=== PATIENT | female | born 1955 | race African-American/Black ===

== ENCOUNTER 2019-12-28 07:12 | Outpatient (CLI) | payer MEDICARE, OTHER, SELFPAY ==
[2019-12-28 07:48] LABS: Basophils Percent Auto 0.4 % (0.2-1.2); Eosinophils Absolute Auto 0.2 K/mm3 (0-0.3); Eosinophils Percent Auto 4.3 % (0-4.4); Hematocrit 37.6 % (37.0-47.0); Lymphocytes Absolute Auto 1.76 K/mm3 (0.9-3.2); Lymphocytes Percent Auto 35.8 % (18.3-44.2); Mean Corpuscular HGB Conc 31.9 g/dl (32-36); Mean Corpuscular Hemoglobin 30.7 pg (26-34); Mean Corpuscular Volume 96.2 fl (80-100); Mean Platelet Volume 10.7 fl (7.4-10.4); Monocytes Absolute Auto 0.5 K/mm3 (0.1-0.6); Monocytes Percent Auto 10.4 % (2.6-8.5); Neutrophils Absolute Auto 2.4 K/mm3 (1.3-6.7); Neutrophils Percent Auto 49.1 % (45.5-73.1); Platelet Count Result 192 k/mm3 (150-375); Red Blood Count 3.91 M/mm3 (4.2-5.4); Red Cell Distribution Width 13.5 % (11.5-14.5); White Blood Count 4.9 K/mm3 (4.5-10.0)
[2019-12-28 08:02] LABS: Alanine Aminotransferase 16 U/L (4-35); Albumin Level 4.3 g/dL (3.5-5.1); Alkaline Phosphatase 50 U/L (38-126); Aspartate Amino Transferase 24 U/L (14-36); Bilirubin,Total 0.4 mg/dL (0.2-1.3); Blood Urea Nitrogen 17 mg/dL (7-17); Calcium 9.5 mg/dL (8.4-10.2); Carbon Dioxide 35 mmol/L (22-30); Chloride 103 mmol/L (98-107); Cholesterol 140 mg/dL (0-200); Estimated Glomerular Filt Rate > 60; Glucose 92 mg/dL (65-105); HDL Direct 63 mg/dL; Potassium 3.9 mmol/L (3.4-5.0); Sodium 139 mmol/L (137-145); Triglycerides 62 mg/dL (<150)
[2019-12-28 08:13] LABS: LDL Cholesterol Direct 44 mg/dL
== END 2019-12-28 07:13 | disposition home or self-care (01) ==
PROVIDERS: PCP Internal Medicine; Visit Provider Internal Medicine
DX: I10 Essential (primary) hypertension (principal); E78.5 Hyperlipidemia, unspecified
CPT/HCPCS: 36415; 80053; 80061; 84439; 84443; 85025

== ENCOUNTER 2019-12-29 07:38 | Outpatient (CLI) | payer MEDICARE, OTHER, SELFPAY ==
--- NOTE | ~2019-12-29 | DEXA_ITS ---
Bone Density Report Name: Emma Leggett Age: 64 Sex: Female Ethnicity: Black Date of : 1955 Indication: osteopenia; monitoring treatment; asthma or emphysema; hysterectomy; post menopausal Referring Provider: ShruthiKehinde Study: Bone densitometry was performed. Exam Date: December 29, 2019 Accession number: [id number] Bone Density: Region BMD T-score Z-score Classification AP Spine (L1, L2, L3) 0.878 -1.3 -0.2 Osteopenia Femoral Neck (Left) 0.818 -0.3 0.4 Normal Total Hip (Left) 0.819 -1.0 -0.4 Normal Total Hip Bilateral Avg 0.841 -0.8 -0.3 Normal Femoral Neck (Right) 0.862 0.1 0.7 Normal Total Hip (Right) 0.863 -0.6 -0.1 Normal World Health Organization criteria for BMD impression classify patients as: Normal (T-score at or above -1.0), Osteopenia (T-score between -1.0 and -2.5), or Osteoporosis (T-score at or below -2.5). 10-year Fracture Risk: FRAX not reported because: Treated for osteoporosis Previous Exams: Region Exam Age BMD T-score BMD Change BMD Change Date g/cm2 vs Baseline vs Previous AP Spine(L1, L2, L3) 12/29/2019 64 0.878 -1.3 -0.099(-10.2%) 0.053(6.4%)# 02/16/2014 59 0.825 -1.8 -0.152(-15.6%) -0.033(-3.9%)# 12/12/2010 55 0.858 -1.5 -0.119(-12.2%) -0.028(-3.2%)* 11/01/2008 53 0.886 -1.2 -0.090(-9.3%)* -0.090(-9.3%)* 06/10/2006 51 0.977 -0.4 Total Hip(Left) 12/29/2019 64 0.819 -1.0 -0.071(-7.9%)# 0.020(2.4%)# 02/16/2014 59 0.800 -1.2 -0.090(-10.1%) -0.007(-0.9%)# 12/12/2010 55 0.807 -1.1 -0.083(-9.4%)* -0.051(-6.0%)* 11/01/2008 53 0.858 -0.7 -0.032(-3.6%)* -0.032(-3.6%)* 06/10/2006 51 0.890 -0.4 Total Hip(Right) 12/29/2019 64 0.863 -0.6 -0.041(-4.5%)# 0.050(6.1%)# 02/16/2014 59 0.813 -1.1 -0.091(-10.0%) -0.004(-0.5%)# 12/12/2010 55 0.817 -1.0 -0.087(-9.6%)* -0.027(-3.2%)* 11/01/2008 53 0.844 -0.8 -0.060(-6.6%)* -0.060(-6.6%)* 06/10/2006 51 0.904 -0.3 *Denotes significance at 95% confidence level, LSC for AP Spine = 0.022 g/cm2, LSC for Total Hip = 0.027 g/cm2 Clinical Information Provided by Patient: Is being treated for osteoporosis Has used the following medications: Boniva (i.e. ibandronate), Vitamin D, Calcium Has the following medical conditions: Asthma or Emphysema, Hysterectomy Patient maximum height was 64 Menopause Age: 49 Does not regularly consume dairy products Onset of menses at age 14 Number of children 2
--- NOTE | ~2019-12-29 | MM_ITS ---
EXAMINATION: MM screening [facility] BI w [facility] HISTORY: Screening mammogram TECHNIQUE: Craniocaudal and mediolateral oblique 3-D tomosynthesis images were obtained and synthetic 2-D images were generated. CAD analysis was submitted and interpreted. COMPARISON: Comparison to multiple prior studies sequentially, with oldest reviewed study dated 06/05. BREAST PARENCHYMAL COMPOSITION: There are scattered areas of fibroglandular density. FINDINGS: There is no evidence of suspicious mass, calcification, or architectural distortion to sugg est malignancy in either breast. There has been no suspicious interval change. IMPRESSION: 1. No mammographic evidence of malignancy. 2. Recommend routine screening mammography in one year. BI-RADS Category 1: Negative Reviewed, dictated and finalized at location A.
== END 2019-12-29 07:39 | disposition home or self-care (01) ==
PROVIDERS: PCP Internal Medicine; Visit Provider Internal Medicine
DX: Z12.31 Encounter for screening mammogram for malignant neoplasm of breast (principal); M81.0 Age-related osteoporosis without current pathological fracture; M85.88 Other specified disorders of bone density and structure, other site
CPT/HCPCS: 77063; 77067; 77080

== ENCOUNTER 2020-01-25 00:26 | Outpatient (CLI) | payer MEDICARE, OTHER, SELFPAY ==
[2020-01-25 18:55] LABS: SARS-CoV-2 RNA PCR Negative
== END 2020-01-25 00:27 | disposition home or self-care (01) ==
LOC: ANHCOVIDDT 00:26
PROVIDERS: PCP Internal Medicine; Visit Provider Internal Medicine Gastroenterology
DX: Z01.818 Encounter for other preprocedural examination (principal); Z11.59 Encounter for screening for other viral diseases; Z12.11 Encounter for screening for malignant neoplasm of colon
CPT/HCPCS: 87635; C9803; U0003

== ENCOUNTER 2020-01-27 00:54 | Day surgery (SDC) | payer MEDICARE, OTHER, SELFPAY ==
[2020-01-20 13:26] VITALS: BMI 33.2
--- NOTE | 2020-01-27 08:24 | WPDANESEPPF ---
Anes - Initial Pre Proc Eval Procedure: Operation Date: 01/27/20 09:30 Proposed Procedures p Screening Colonoscopy - Elvis Rivas MD Date/Time: 01/27/20 08:24 Surgeon: Elvis Rivas MD Pre Op Diagnosis: Fam Hx Colon Ca Patient Data Age: 64 Gender: F Height: 1.6 m Weight: 85 kg Allergies Allergy/AdvReac Type Severity Reaction Status Date / Time No Known Allergies Allergy Verified 01/27/20 08:52 Home Medications Medication Instructions Recorded Confirmed Type albuterol sulfate 90 mcg/actuation 1 inhalation INHALATION Q4H 09/13/19 01/20/20 History aerosol inhaler aspirin 81 mg tablet,delayed 81 mg PO DAILY 09/13/19 01/20/20 History release atorvastatin 20 mg tablet 20 mg PO DAILY 09/13/19 01/20/20 History cholecalciferol (vitamin D3) 25 25 mcg PO DAILY 09/13/19 01/20/20 History mcg (1,000 unit) capsule hydrochlorothiazide 12.5 mg capsule 12.5 mg PO DAILY 09/13/19 01/20/20 History ibandronate 150 mg tablet 150 mg PO MONTHLY 09/13/19 01/20/20 History metoprolol succinate 25 mg capsule 25 mg PO DAILY 09/13/19 01/20/20 History sprinkle, ext. release 24 hr paroxetine HCl 10 mg tablet 10 mg PO DAILY 09/13/19 01/20/20 History salmeterol 50 mcg/dose blister 1 inhalation INHALATION Q12H 09/13/19 01/20/20 History powder for inhalation solifenacin 10 mg tablet 10 mg PO DAILY 09/13/19 01/20/20 History valsartan 160 mg tablet 160 mg PO DAILY 09/13/19 01/20/20 History Patient hx anesthesia problems: none Family hx anesthesia problems: none PMFSH Past Medical History Medical History Asthma Back pain Dyslipidemia History of vaginal delivery x2 Hypertension Obesity Surgical History Surgical History History of total hysterectomy History of tubal ligation Family History Family History Father Hypertension Mother Hypertension Cerebrovascular accident Sibling Carcinoma of colon Social History Social History Smoking status: Never smoker Alcohol intake: never Anes - Eval Final PreProcedure Day of Procedure 01/27/20 08:24 Patient weight: obese Heart: regular rate and rhythm Lungs: clear to auscultation and normal air movement Airway: Mallampati scale class II Neurological: alert and oriented Last oral intake: >/= 8 hours ASA classification: II Emergent: no Anesthetic plan: proceed Anesthesia type and monitoring: general GIVS Informed Consent: The patient's anesthetic plan and its attendant risks and benefits were discussed with the patient/family/POA. Questions were solicited and answers provided to the satisfaction of the patient/family/POA.
[2020-01-27 08:53] VITALS: BP 153/80; PULSE 74; RESP 16; TEMP 36.2; O2SAT 100; BMI 33.3
--- NOTE | 2020-01-27 09:02 | PM.HPGS ---
History of Present Illness History of Present Illness Consent: Risks, benefits, and alternatives have been discussed and questions answered. Patient agrees to proceed with procedure. Chief complaint: Fam Hx Colon Ca Narrative: Emma Leggett is a 64 year old AA female referred for screening colonoscopy secondary to family history of colon cancer in 2 sisters. There is no other types of malignancy. Patient states that no genetic testing has been done. Patient is asymptomatic. Her last colonoscopy was 3 years ago however the bowel prep was not ideal and she return in 3 years instead of 5. Patient had a 2 day bowel prep. [facility] Past Medical History Medical History (Updated 01/27/20 @ 09:03 by Elvis Rivas MD) Asthma Back pain Dyslipidemia History of vaginal delivery x2 Hypertension Obesity Surgical History Surgical History History of total hysterectomy History of tubal ligation Family History Family History Father Hypertension Mother Hypertension Cerebrovascular accident Sibling Carcinoma of colon Social History Social History Smoking status: Never smoker Alcohol intake: never Meds Home Medications and Allergies Home Medications Medication Instructions Recorded Confirmed Type albuterol sulfate 90 mcg/actuation 1 inhalation INHALATION Q4H 09/13/19 01/20/20 History aerosol inhaler aspirin 81 mg tablet,delayed 81 mg PO DAILY 09/13/19 01/20/20 History release atorvastatin 20 mg tablet 20 mg PO DAILY 09/13/19 01/20/20 History cholecalciferol (vitamin D3) 25 25 mcg PO DAILY 09/13/19 01/20/20 History mcg (1,000 unit) capsule hydrochlorothiazide 12.5 mg capsule 12.5 mg PO DAILY 09/13/19 01/20/20 History ibandronate 150 mg tablet 150 mg PO MONTHLY 09/13/19 01/20/20 History metoprolol succinate 25 mg capsule 25 mg PO DAILY 09/13/19 01/20/20 History sprinkle, ext. release 24 hr paroxetine HCl 10 mg tablet 10 mg PO DAILY 09/13/19 01/20/20 History salmeterol 50 mcg/dose blister 1 inhalation INHALATION Q12H 09/13/19 01/20/20 History powder for inhalation solifenacin 10 mg tablet 10 mg PO DAILY 09/13/19 01/20/20 History valsartan 160 mg tablet 160 mg PO DAILY 09/13/19 01/20/20 History Allergies Allergy/AdvReac Type Severity Reaction Status Date / Time No Known Allergies Allergy Verified 01/27/20 08:52 Vital Signs Vital Signs - 24 hr 01/27/20 08:53 Temperature 36.2 C L Pulse Rate 74 Respiratory Rate 16 Blood Pressure 153/80 H Pulse Oximetry 100 Exam Const: Orientation/consciousness: patient oriented x3 Resp: Auscultation: clear to auscultation bilaterally Cardio: Rate: regular rate Rhythm: regular rhythm Heart sounds: no murmurs GI: GI Palp: Yes Soft to palpation, No Tenderness to palpation present (GI), Yes No hepatosplenomegaly present and No Palpable mass present Auscultation: normal bowel sounds Neuro: General: patient oriented x3 and no focal motor deficits Extrem: General: no pedal edema Assessment and Plan Additional Plan screening colonoscopy in high risk patient
[2020-01-27] MEDS: LACTATED RINGERS 1,000 ML 150 ML IV CONT (09:09)
[2020-01-27 09:54] VITALS: BP 120/54; PULSE 71; RESP 17; O2SAT 100
[2020-01-27 10:04] VITALS: BP 131/71; PULSE 71; RESP 17; O2SAT 100
[2020-01-27 10:14] VITALS: BP 150/84; PULSE 71; RESP 17; O2SAT 100
== END 2020-01-27 10:24 | disposition home or self-care (01) ==
PROVIDERS: PCP Internal Medicine; Visit Provider Internal Medicine Gastroenterology
PROC: 0DJD8ZZ Inspection of Lower Intestinal Tract, Via Natural or Artificial Opening Endoscopic (ICD-10-PCS; CPT 45378; principal; 2020-01-27 09:30)
DX: Z12.11 Encounter for screening for malignant neoplasm of colon (principal); K64.4 Residual hemorrhoidal skin tags; K62.89 Other specified diseases of anus and rectum; Z80.0 Family history of malignant neoplasm of digestive organs; I10 Essential (primary) hypertension; E78.5 Hyperlipidemia, unspecified; J45.909 Unspecified asthma, uncomplicated; E66.9 Obesity, unspecified; Z68.33 Body mass index [BMI] 33.0-33.9, adult; Z79.899 Other long term (current) drug therapy
CPT/HCPCS: G0105; J2704; J7120

== ENCOUNTER 2023-02-10 13:19 | Emergency (ER) | payer MEDICARE, OTHER, SELFPAY ==
[2023-02-10] VITALS (13 sets, daily range): BP systolic 150–182; BP diastolic 70–95; PULSE 53–72; RESP 12–20; TEMP 36.6; O2SAT 99–100
--- NOTE | ~2023-02-10 | XR_ITS ---
EXAMINATION: XR chest 2V DATE: 02/10/2023 14:27 INDICATION: Midsternal chest pain. Shortness of breath. TECHNIQUE: Frontal and lateral views of the chest were obtained. COMPARISON: Chest 2 views 10/04/2016 FINDINGS: The chest demonstrates clear lungs without pneumonia, pleural effusion, or pneumothorax. Th e heart size is normal. IMPRESSION: 1. No acute cardiopulmonary disease. Reviewed, dictated and finalized at location E.
--- NOTE | 2023-02-10 13:22 | ECG_ITS ---
Measurements Intervals Seltzer Rate: 63 P: 65 NH: 171 QRS: 23 QRSD: 93 T: 45 QT: 385 QTc: 395 Interpretive Statements SINUS RHYTHM BORDERLINE R WAVE PROGRESSION, ANTERIOR LEADS BORDERLINE ECG NO PREVIOUS ECG AVAILABLE FOR COMPARISON Electronically Signed On 02-10-2023 13:33:52 CDT by Antonio High D.O.
[2023-02-10] MEDS: ASPIRIN 81 MG CHEWABLE TABLET 324 MG PO (13:39)
[2023-02-10 14:00] LABS: Basophils Percent Auto 0.8 % (0.2-1.2); Eosinophils Absolute Auto 0.3 K/mm3 (0-0.3); Eosinophils Percent Auto 6.9 % (0-4.4); Hematocrit 40.5 % (37.0-47.0); Hemoglobin 12.9 g/dL (12.0-15.0); Immature Granulocyte Absolute 0.01 K/mm3 (0.00-0.031); Immature Granulocyte Percent A 0.2 % (0-0.5); Lymphocytes Absolute Auto 2.17 K/mm3 (0.9-3.2); Lymphocytes Percent Auto 43.8 % (18.3-44.2); Mean Corpuscular HGB Conc 31.9 g/dl (32-36); Mean Corpuscular Hemoglobin 30.8 pg (26-34); Mean Corpuscular Volume 96.7 fl (80-100); Mean Platelet Volume 10.7 fl (7.4-10.4); Monocytes Absolute Auto 0.5 K/mm3 (0.1-0.6); Monocytes Percent Auto 10.3 % (2.6-8.5); Neutrophils Absolute Auto 1.9 K/mm3 (1.3-6.7); Platelet Count Result 210 k/mm3 (150-375); Red Blood Count 4.19 M/mm3 (4.2-5.4); Red Cell Distribution Width 13.2 % (11.5-14.5)
[2023-02-10 14:08] LABS: Chloride 100 mmol/L (98-107); Potassium 3.7 mmol/L (3.4-5.0); Sodium 138 mmol/L (137-145)
[2023-02-10 14:09] LABS: Alanine Aminotransferase 23 U/L (6-35); Albumin Level 4.6 g/dL (3.5-5.1); Alkaline Phosphatase 52 U/L (38-126); Anion Gap 2 mmol/L (8-16); Aspartate Amino Transferase 29 U/L (14-36); Bilirubin,Total 0.5 mg/dL (0.2-1.3); Blood Urea Nitrogen 18 mg/dL (7-17); Calcium 10.5 mg/dL (8.4-10.2); Carbon Dioxide 36 mmol/L (22-30); Estimated CRCL calculation 67 ml/min; Estimated Glomerular Filt Rate > 60; Glucose 83 mg/dL (65-110); Lipase 95 U/L (23-300)
[2023-02-10 14:13] LABS: INR 0.9; Prothrombin Time 13.1 Seconds (11.1-14.7)
[2023-02-10 14:14] LABS: Partial Thromboplastin Time 29.3 SECONDS (22.3-36.8)
[2023-02-10 14:21] LABS: Troponin I < 0.012 ng/mL (0.000-0.034)
[2023-02-10] MEDS: ACETAMINOPHEN 500 MG TABLET 1000 MG PO (14:30)
--- NOTE | 2023-02-10 14:38 | ED.CHESTPAIN ---
HPI - Chest Pain General Chief Complaint: Chest Pain Stated Complaint: chest discomfort Time Seen by Provider: 02/10/23 13:43 History of Present Illness HPI narrative: This is a 68-year-old female with past history of hypothyroidism and hypertension, who presents emergency department complaining of chest pressure for the past 1 week. The patient states she was at rest when she felt a 2/10 pressure-like sensation in the mid chest, aggravated by bending forward or twisting and alleviated with straightening. She denies any other known aggravating alleviating factors. She denies associated difficulty breathing, nausea or vomiting. She has no other complaints today. Related Data Home Medications Medication Instructions Recorded Confirmed albuterol sulfate 90 mcg/actuation 1 inhalation inhalation Q4H 09/13/19 09/17/21 aerosol inhaler (ProAir HFA) aspirin 81 mg tablet,delayed 81 mg PO DAILY 09/13/19 09/17/21 release (Adult Aspirin Regimen) atorvastatin 20 mg tablet 20 mg PO DAILY 09/13/19 09/17/21 cholecalciferol (vitamin D3) 25 25 mcg PO DAILY 09/13/19 09/17/21 mcg (1,000 unit) capsule hydrochlorothiazide 12.5 mg capsule 12.5 mg PO DAILY 09/13/19 09/17/21 ibandronate 150 mg tablet (Boniva) 150 mg PO MONTHLY 09/13/19 09/17/21 metoprolol succinate 25 mg capsule 25 mg PO DAILY 09/13/19 09/17/21 sprinkle, ext. release 24 hr paroxetine HCl 10 mg tablet 10 mg PO DAILY 09/13/19 09/17/21 salmeterol 50 mcg/dose blister 1 inhalation inhalation Q12H 09/13/19 09/17/21 powder for inhalation (Serevent Diskus) solifenacin 10 mg tablet (Vesicare) 10 mg PO DAILY 09/13/19 09/17/21 valsartan 160 mg tablet 160 mg PO DAILY 09/13/19 09/17/21 levothyroxine 100 mcg capsule 100 mcg PO DAILY 09/17/21 09/17/21 Allergies Allergy/AdvReac Type Severity Reaction Status Date / Time No Known Allergies Allergy Verified 02/10/23 13:47 Review of Systems Review of Systems: CONSTITUTIONAL: Denies fever, chills, or sweats. CARDIOVASCULAR: Chest pressure denies palpitations, or edema. RESPIRATORY: Denies cough or dyspnea. GASTROINTESTINAL: Denies abdominal pain, nausea, vomiting, or diarrhea. GENITOURINARY: Denies dysuria or hematuria. SKIN: Denies rash or itching. MUSCULOSKELETAL: Denies back pain, joint pain, or myalgia. NEUROLOGIC: Denies headache, numbness, dizziness, or weakness. PSYCHIATRIC: Denies anxiety or depression. PMFSH Past Medical History Medical History Asthma Back pain Dyslipidemia History of vaginal delivery x2 Hypertension Obesity Surgical History Surgical History History of carpal tunnel surgery of right wrist History of total hysterectomy History of tubal ligation Family History Family History Father Hypertension Mother Hypertension Cerebrovascular accident Sibling Carcinoma of colon Social History Social History Smoking status: Never smoker Alcohol intake: never Exam Narrative: GENERAL: Well-developed, well-nourished, and in no acute distress. HEAD: Normocephalic, atraumatic. EYES: PERRLA and EOMI. ENT: Nares clear, no rhinorrhea or epistaxis. Mucous membranes moist. Oropharynx without tonsillar hypertrophy exudate or other lesions. NECK: Supple. No adenopathy or masses. No JVD CHEST: Clear to auscultation. No respiratory distress. No wheezes rales or rhonchi HEART: Regular rate and rhythm. No murmur heard. Normal peripheral pulses. Unable to reproduce chest pain with palpation, however the patient was able to reproduce her pain with sitting forward and twisting. ABDOMEN: Soft, nontender, nondistended, normal active bowel sounds. EXTREMITIES: Normal range of motion. No edema. SKIN: Warm, dry, no rash. NEURO: No focal deficits. Alert and oriented x3. PSYCH:
[2023-02-10 17:05] LABS: Troponin I < 0.012 ng/mL (0.000-0.034)
== END 2023-02-10 17:35 | disposition home or self-care (01) ==
PROVIDERS: Emergency Medicine; Emergency Provider Preventive Medicine Aerospace Medicine; PCP Internal Medicine
DX: R07.89 Other chest pain (principal); E03.9 Hypothyroidism, unspecified; I10 Essential (primary) hypertension; E78.5 Hyperlipidemia, unspecified
CPT/HCPCS: 36415; 71046; 80053; 83690; 84484; 85025; 85610; 85730; 93005; 99284; A9270

== ENCOUNTER 2023-05-23 00:50 | Day surgery (SDC) | payer MEDICARE, OTHER, SELFPAY ==
[2023-05-13 14:20] VITALS: BMI 32.0
--- NOTE | 2023-05-22 13:26 | PM.HPGS ---
History of Present Illness History of Present Illness Consent: Risks, benefits, and alternatives have been discussed and questions answered. Patient agrees to proceed with procedure. Chief complaint: GERD Narrative: Emma Leggett is a 68 year old female Referred for investigation of gastroesophageal reflux symptoms. She is not currently on PPI . She does not get heartburn. Her main symptom is a pressure in the chest. It can last for an hour to an it is sometimes worse if she leans forward. Review of Systems Review of Systems: All systems reviewed & are unremarkable except as noted in HPI and below PMFSH Past Medical History Medical History Asthma Back pain Dyslipidemia History of vaginal delivery x2 Hypertension Obesity Surgical History Surgical History History of carpal tunnel surgery of right wrist History of total hysterectomy History of tubal ligation Family History Family History Father Hypertension Mother Hypertension Cerebrovascular accident Sibling Carcinoma of colon Social History Social History Smoking status: Never smoker Alcohol intake: never Substance use type: does not use Living arrangements: with friend(s) Spiritual care concerns: No Meds Home Medications and Allergies Home Medications Medication Instructions Recorded Confirmed Type albuterol sulfate 90 mcg/actuation 1 inhalation inhalation Q4H PRN 09/13/19 05/13/23 History aerosol inhaler (ProAir HFA) Shortness Of Breath aspirin 81 mg tablet,delayed 81 mg PO DAILY 09/13/19 05/13/23 History release (Adult Aspirin Regimen) atorvastatin 20 mg tablet 20 mg PO DAILY 09/13/19 05/13/23 History cholecalciferol (vitamin D3) 25 25 mcg PO DAILY 09/13/19 05/13/23 History mcg (1,000 unit) capsule ibandronate 150 mg tablet (Boniva) 150 mg PO MONTHLY 09/13/19 05/13/23 History paroxetine HCl 10 mg tablet 10 mg PO DAILY 09/13/19 05/13/23 History salmeterol 50 mcg/dose blister 1 inhalation inhalation Q12H 09/13/19 05/13/23 History powder for inhalation (Serevent Diskus) calcium carbonate 600 mg calcium 600 mg PO BID 05/13/23 05/13/23 History (1,500 mg) tablet (Calcium) hydrochlorothiazide 25 mg tablet 25 mg PO DAILY 05/13/23 05/13/23 History levothyroxine 75 mcg tablet 75 mcg PO DAILY 05/13/23 05/13/23 History losartan 50 mg tablet 50 mg PO DAILY 05/13/23 05/13/23 History multivitamin with minerals-folic 1 tablet PO DAILY 05/13/23 05/13/23 History acid 0.4 mg tablet solifenacin 5 mg tablet 5 mg PO DAILY 05/13/23 05/13/23 History Allergies Allergy/AdvReac Type Severity Reaction Status Date / Time No Known Allergies Allergy Verified 05/23/23 09:18 Exam Const: General: alert Orientation/consciousness: patient oriented x3 Resp: Auscultation: clear to auscultation bilaterally Cardio: Rhythm: regular rhythm GI: GI Palp: Yes Soft to palpation and No Tenderness to palpation present (GI) Neuro: General: patient oriented x3 Assessment and Plan Assessment and plan (1) GERD (gastroesophageal reflux disease): Code(s): K21.9 - Gastro-esophageal reflux disease without esophagitis Status: Acute
[2023-05-23 09:19] VITALS: BP 176/82; PULSE 67; RESP 18; TEMP 36.1; O2SAT 100
[2023-05-23] MEDS: LACTATED RINGERS 1,000 ML 150 ML IV CONT (09:28)
--- NOTE | 2023-05-23 09:53 | WPDANESEPPF ---
Anes - Initial Pre Proc Eval Procedure: Operation Date: 05/23/23 10:15 Proposed Procedures p Esophagogastroduodenoscopy EGD - Elliott Pearson MD Date/Time: 05/23/23 09:53 Surgeon: Elliott Pearson MD Pre Op Diagnosis: GERD Patient Data Age: 68 Gender: F Height: 1.6 m Weight: 86.2 kg Last Vital Signs Temp 97 F L 05/23/23 09:19 Pulse 67 05/23/23 09:19 Resp 18 05/23/23 09:19 BP 176/82 H 05/23/23 09:19 Pulse Ox 100 05/23/23 09:19 O2 Del Method Room Air 05/23/23 09:19 Allergies Allergy/AdvReac Type Severity Reaction Status Date / Time No Known Allergies Allergy Verified 05/23/23 09:18 Home Medications Medication Instructions Recorded Confirmed Type albuterol sulfate 90 mcg/actuation 1 inhalation inhalation Q4H PRN 09/13/19 05/13/23 History aerosol inhaler (ProAir HFA) Shortness Of Breath aspirin 81 mg tablet,delayed 81 mg PO DAILY 09/13/19 05/13/23 History release (Adult Aspirin Regimen) atorvastatin 20 mg tablet 20 mg PO DAILY 09/13/19 05/13/23 History cholecalciferol (vitamin D3) 25 25 mcg PO DAILY 09/13/19 05/13/23 History mcg (1,000 unit) capsule ibandronate 150 mg tablet (Boniva) 150 mg PO MONTHLY 09/13/19 05/13/23 History paroxetine HCl 10 mg tablet 10 mg PO DAILY 09/13/19 05/13/23 History salmeterol 50 mcg/dose blister 1 inhalation inhalation Q12H 09/13/19 05/13/23 History powder for inhalation (Serevent Diskus) calcium carbonate 600 mg calcium 600 mg PO BID 05/13/23 05/13/23 History (1,500 mg) tablet (Calcium) hydrochlorothiazide 25 mg tablet 25 mg PO DAILY 05/13/23 05/13/23 History levothyroxine 75 mcg tablet 75 mcg PO DAILY 05/13/23 05/13/23 History losartan 50 mg tablet 50 mg PO DAILY 05/13/23 05/13/23 History multivitamin with minerals-folic 1 tablet PO DAILY 05/13/23 05/13/23 History acid 0.4 mg tablet solifenacin 5 mg tablet 5 mg PO DAILY 05/13/23 05/13/23 History Patient hx anesthesia problems: none Family hx anesthesia problems: none Results Review: All pre-operative results and documents have been reviewed as part of the pre-operative evaluation. [facility] Past Medical History Medical History Asthma Back pain Dyslipidemia History of vaginal delivery x2 Hypertension Obesity Surgical History Surgical History History of carpal tunnel surgery of right wrist History of total hysterectomy History of tubal ligation Family History Family History Father Hypertension Mother Hypertension Cerebrovascular accident Sibling Carcinoma of colon Social History Social History Smoking status: Never smoker Alcohol intake: never Substance use type: does not use Living arrangements: with friend(s) Spiritual care concerns: No Anes - Eval Final PreProcedure Day of Procedure 05/23/23 09:53 Patient weight: obese Heart: regular rate and rhythm Lungs: clear to auscultation Airway: Mallampati scale class II Neurological: alert and oriented Last oral intake: >/= 8 hours ASA classification: III Emergent: no Anesthetic plan: proceed Anesthesia type and monitoring: general GIVS and standard monitoring Results Review: All pre-operative results and documents have been reviewed as part of the pre-operative evaluation. Informed Consent: The patient's anesthetic plan and its attendant risks and benefits were discussed with the patient/family/POA. Questions were solicited and answers provided to the satisfaction of the patient/family/POA.
[2023-05-23 10:43] VITALS: BP 142/83; PULSE 73; RESP 22; O2SAT 100
[2023-05-23 10:53] VITALS: BP 135/90; PULSE 74; RESP 18; O2SAT 100
[2023-05-23 11:03] VITALS: BP 153/75; PULSE 70; RESP 23; O2SAT 100
== END 2023-05-23 11:06 | disposition home or self-care (01) ==
PROVIDERS: PCP Internal Medicine; Visit Provider Internal Medicine Gastroenterology
PROC: 0DJ08ZZ Inspection of Upper Intestinal Tract, Via Natural or Artificial Opening Endoscopic (ICD-10-PCS; CPT 43235; principal; 2023-05-23 10:15)
DX: K22.70 Barrett's esophagus without dysplasia (principal); K29.70 Gastritis, unspecified, without bleeding; K21.00 Gastro-esophageal reflux disease with esophagitis, without bleeding; J45.909 Unspecified asthma, uncomplicated; I10 Essential (primary) hypertension; E78.5 Hyperlipidemia, unspecified; E66.9 Obesity, unspecified; Z68.33 Body mass index [BMI] 33.0-33.9, adult; Z79.51 Long term (current) use of inhaled steroids; Z79.82 Long term (current) use of aspirin
CPT/HCPCS: 43239; 87081; 88305; J2704; J7120

== ENCOUNTER 2024-09-20 09:30 | Outpatient (CLI) | payer MEDICARE, OTHER, SELFPAY ==
--- NOTE | ~2024-09-20 | DEXA_ITS ---
Bone Density Report Name: MESSI NEWBY Age: 69 Sex: Female Ethnicity: Black Date of : 1955 Indication: osteopenia; monitoring treatment; asthma or emphysema; Referring Provider: MARY JANE NORMAN Study: Bone densitometry was performed. Exam Date: September 20, 2024 Accession number: [id number] Bone Density: Region BMD T-score Z-score Classification AP Spine(L1-L4) 0.937 -1.0 0.4 Normal Femoral Neck (Left) 0.849 0.0 0.7 Normal Total Hip (Left) 0.856 -0.7 0.0 Normal Femoral Neck (Right) 0.856 0.1 0.8 Normal Total Hip (Right) 0.846 -0.8 0.0 Normal Total Hip Mean 0.851 -0.8 0.0 Normal World Health Organization criteria for BMD impression classify patients as: Normal (T-score at or above -1.0), Osteopenia (T-score between -1.0 and -2.5), or Osteoporosis (T-score at or below -2.5). 10-year Fracture Risk: FRAX not reported because: All T-scores for Spine Total, Hip Total, Femoral Neck at or above -1.0 Treated for osteoporosis Previous Exams: Region Exam Age BMD T-score BMD Change BMD Change Date g/cm2 vs Baseline vs Previous Total Hip(Left) 09/20/2024 69 0.856 -0.7 0.036 (4.5%)* 0.036 (4.5%)* 12/29/2019 64 0.819 -1.0 Total Hip(Right) 09/20/2024 69 0.846 -0.8 -0.017 (-2.0%) 0.040 (5.0%)# 09/20/2024 69 0.805 -1.1 -0.058 (-6.7%) -0.058 (-6.7%) 12/29/2019 64 0.863 -0.6 *Denotes significance at 95% confidence level, LSC for Total Hip = 0.027 g/cm2 # Denotes dissimilar scan types or analysis methods Clinical Information Provided by Patient: Is being treated for osteoporosis Has used the following medications: Boniva (i.e. ibandronate), Vitamin D, Calcium Has the following medical conditions: Asthma or Emphysema Patient maximum height was 64 Menopause Age: 49 No regular weight bearing exercise Does not regularly consume dairy products Onset of menses at age 14 Number of children 2 Impression: The patient has normal bone mass. No significant bone loss was observed. Discussion: PATIENT UNDER TREATMENT WITH NO SIGNIFICANT BMD LOSS SINCE LAST EXAM. In an untreated patient, BMD typically declines with age. A lack of decline or gain is usually a sign that treatment is efficacious and fracture risk is reduced. It is important to ask patients whether they are taking their medications and to encourage continued and appropriate compliance with their osteoporosis therapies to reduce fracture risk. It is also important to review their risk factors and encourage appropriate calcium and vitamin D intakes, exercise, fall prevention and other lifestyle measures. Follow-Up: Consider a repeat BMD and Vertebral Fracture Assessment (VFA) exam in 2 years or sooner if medically necessary, to reassess this patient's status. Reported by: GUS on 09/20/2024 10:06:00 AM. Reviewed, dictated and finalized at location [facility]
--- OUTSIDE RECORDS SUMMARY | 2024-09-20 12:14 | XMS_ITS | Continuity of Care Document ---
Author Organization [facility] Address [id number] [place] [address] [address] [place] [address] Phone Care Team Providers Care Forensic Technician Name Role Phone Washington Sanz Unavailable Unavailable Advance Directives Directive Yes / No Effective Date File Name No Information Encounters Encounter Description Practice Location Reason(s) For Visit Diagnoses Date Provider Providers Copied on Encounter [facility], [address] [place] [address] [address], [place], [place], [id number], [place] tel:[phone] [address] [facility] No Information [address] [facility] , [address], [place], [address], [place]. tel:[phone] Family History Family Member Type Diagnosis Age At Onset No Information Payers Payer name Insurance type Covered democrat ID Authoriza tion(s) No Information Social History Type Description Quantity Date Captured Comments Sex Female Smoking Status No Information Chief Complaint And Reason For Visit No Information Reason For Referral Reason For Referral No Information History Of Present Illness Encounter Date Complaint History Of Prese nt Illness No Information Functional Status Date Functional Assessmen t No Information Instructions Date Instruction Additional Infor mation No Information Assessments Type Assessment Date No Information Patient Care Teams Name Effective Dates (start - stop) Status Members No Information
--- OUTSIDE RECORDS SUMMARY | 2024-09-20 12:14 | XMS_ITS | Data Portability ---
Author Organization [place] [facility], Main Office Address [address] [place] [address] Care Team Providers Care Training And Quality Manager Name Role Phone SIRISHA HAWKINS Primary Care Provider SIRISHA HAWKINS Referring Provider DANIELA BONILLA Powerhouse Operator Assessment Encounter Date Assessment Date Assessment LastModified by Organization Details LastModified Time 03/24/2024 03/24/2024 05/02/2023: TSH 0.148L, TT4 1.28 11/03/2023: TSH 0.091L, FT4 1.25 03/22/2024: TSH 0.074L, FT4 1.16 Not available 03/22/2024 19:09:54 07/21/2024 07/21/2024 05/02/2023: TSH 0.148L, TT4 1.28 11/03/2023: TSH 0.091L, FT4 1.25 03/22/2024: TSH 0.074L, FT4 1.16 07/17/2024: Na 136 Not available 07/20/2024 09:18:00 Plan of Treatment Reminders Order Date Submit Date Provider Last Modified By Organization Details Last Modified Time Details Appointments Follow Up 15 2024 09:00A Orlin taylor MD Not available Not available Not available Any 15 2024 09:00A Orlin Bonilla MD Not available Not available Not available Lab lipid panel, serum 2023 024 [facility] (Lab), [address] [place], [address], 07/21/2024 10:15:26 CMP, serum or plasma 2023 024 [facility] (Lab), [address] [place], [address], 07/21/2024 10:15:26 CBC w/ auto diff 2023 024 [facility] (Lab), [address] [place], [address], 07/21/2024 10:15:26 TSH + free T4, serum 2023 024 [facility] (Lab), [address] [place], [address], 07/21/2024 10:15:26 vitamin D, 25-hydrox y, total, serum 2023 024 [facility] (Lab), [address] [place], [address], 07/21/2024 10:15:27 vitamin B12 + folate, serum or blood 2023 024 [facility] (Lab), [address] [place], [address], 07/21/2024 10:15:27 lipid panel, serum 2023 024 DON Not available 07/17/2024 14:44:57 CMP, serum or plasma 2023 024 DON Not available 07/17/2024 14:45:12 CBC w/ auto diff 2023 024 DON Not available 07/17/2024 14:16:20 TSH + free T4, serum 2023 024 DON Not available 09/20/2024 04:17:57 vitamin D, 25-hydrox y, total, serum 2023 024 DON Not available 09/20/2024 04:17:57 vitamin B12 + folate, serum or blood 2023 024 DON Not available 09/20/2024 04:17:57 Referral physical therapist referral 2023 024 [email or web address] [facility], [address], [address], [place], [address], 07/21/2024 15:39:48 pulmonolo gist referral 2023 024 Daniela Bonilla MD, [address] [place], [address], 07/21/2024 15:39:26 physical therapist referral 2023 024 [email or web address] [facility], [address], [address], [place], [address], 09/20/2024 10:38:03 pulmonolo gist referral 2023 024 Daniela Bonilla MD, [address] [place], [address], 04/22/2024 14:41:21 Procedures None recorded. Surgeries None recorded. Imaging MAMMO, screening , digital, bilateral 2023 024 DON Not available 06/14/2024 13:22:37 Medication Orders Zepbound 5 mg/0.5 mL subcutane ous pen injector 2023 024 [id number], [address] [place], [id number], 07/21/2024 09:58:54 Zepbound 2.5 mg/0.5 mL subcutane ous pen injector 2023 024 natalia chatman [id number], [address], [id number], 07/21/2024 09:56:32 Patient TargetsNo targets recorded. Patient InstructionsNo instructions recorded. Reason for Referral Powerhouse Operator Referral for A sthma Referring Physician: Sirisha Hawkins Internal [facility], Encounter Date: 03/24/2024 Physical Therapist Referral for Pain in right hip joint Referring Physician: Sirisha Hawkins [facility], Encounter Date: 03/24/2024 Powerhouse Operator Referral for A sta Referring Physician: Sirisha Hawkins [facility], Encounter Date: 07/21/2024 Physical Therapist Referral for Pain in right hip joint Referring Physician: Sirisha Hawkins [facility], Encounter Date: 07/21/2024 Results Created Date Observation Date Name Description Value Unit Range Abnormal Flag Note LastModifiedBy Organization Detail LastModifiedTime 03/22/20 24 03/22/2024 CBC/C OMPLE TE BLD COUNT W/DIF F white blood cells 4.2 x10'3 /uL 4.2-10 .8 Not Available [facility] (Lab) [address] [place], [address], 03/22/2024 11:15:48 03/22/20 24 03/22/2024 CBC/C OMPLE TE BLD COUNT W/DIF F red blood cells 4.05 x10'6 /uL 3.80-5 .20 Not Available [facility] (Lab) [address] [place], [address], 03/22/2024 11:15:48 03/22/20 24 03/22/2024 CBC/C OMPLE TE BLD COUNT W/DIF F hemoglobin 12.4 g/dL 12.0-1 5.6 Not Available [facility] (Lab) [address] [place], [address], 03/22/2024 11:15:48 03/22/20 24 03/22/2024 CBC/C OMPLE TE BLD COUNT W/DIF F hematocrit 38.5 % 35.7-4 5.7 Not Available [facility] (Lab) [address] [place], [address], 03/22/2024 11:15:48 03/22/20 24 03/22/2024 CBC/C OMPLE TE BLD COUNT W/DIF F mean red cell volume 95.1 fL 82.0-9 9.0 Not Available [facility] (Lab) [address] [place], [address], 03/22/2024 11:15:48 03/22/20 24 03/22/2024 CBC/C OMPLE TE BLD COUNT W/DIF F mean red cell hemoglobin 30.6 pg 27.0-3 3.0 Not Available [facility] (Lab) [address] [place], [address], 03/22/2024 11:15:48 03/22/20 24 03/22/2024 CBC/C OMPLE TE BLD COUNT W/DIF F mean RBC HGB concentratio n 32.2 g/dL 31.0-3 6.0 Not Available [facility] (Lab) [address] [place], [address], 03/22/2024 11:15:48 03/22/20 24 03/22/2024 CBC/C OMPLE TE BLD COUNT W/DIF F red cell distribution width 14.0 % 11.8-1 5.5 Not Available [facility] (Lab) [address] [place], [address], 03/22/2024 11:15:48 03/22/20 24 03/22/2024 CBC/C OMPLE TE BLD COUNT W/DIF F platelets 193 x10'3 /uL 150-40 0 Not Available [facility] (Lab) [address] [place], [address], 03/22/2024 11:15:48 03/22/20 24 03/22/2024 CBC/C OMPLE TE BLD COUNT W/DIF F mean platelet volume 11.5 fL 9.0-12 .4 Not Available [facility] [place] [facility] (Lab) [address] [place], [address], 03/22/2024 11:15:48 03/22/20 24 03/22/2024 CBC/C OMPLE TE BLD COUNT W/DIF F neutrophils 43.0 % 39.0-7 2.0 Not Available [facility] [place] [facility] (Lab) [address] [place], [address], 03/22/2024 11:15:48 03/22/20 24 03/22/2024 CBC/C OMPLE TE BLD COUNT W/DIF F lymphocytes 37.5 % 16.0-4 7.0 Not Available [facility] [place] [facility] (Lab) [address] [place], [address], 03/22/2024 11:15:48 03/22/20 24 03/22/2024 CBC/C OMPLE TE BLD COUNT W/DIF F monocytes 11.2 % 5.0-12 .0 Not Available [facility] [place] [facility] (Lab) [address] [place], [address], 03/22/2024 11:15:48 03/22/20 24 03/22/2024 CBC/C OMPLE TE BLD COUNT W/DIF F eosinophils 7.1 % 1.0-7. 0 high Not Available [facility] (Lab) [address] [place], [address], 03/22/2024 11:15:48 03/22/20 24 03/22/2024 CBC/C OMPLE TE BLD COUNT W/DIF F basophils 1.0 % 0.0-2. 0 Not Available [facility] (Lab) [address] [place], [address], 03/22/2024 11:15:48 03/22/20 24 03/22/2024 CBC/C OMPLE TE BLD COUNT W/DIF F immature granulocytes 0.2 % 0.00-0 .50 Not Available [facility] (Lab) [address] [place], [address], 03/22/2024 11:15:48 03/22/20 24 03/22/2024 CBC/C OMPLE TE BLD COUNT W/DIF F neutrophils, absolute count 1.81 x10'3 /uL 1.5-8. 0 Not Available [facility] (Lab) [address] [place], [address], 03/22/2024 11:15:48 03/22/20 24 03/22/2024 CBC/C OMPLE TE BLD COUNT W/DIF F lymphocytes, absolute count 1.58 x10'3 /uL 1.07-3 .43 Not Available [facility] (Lab) [address] [place], [address], 03/22/2024 11:15:48 03/22/20 24 03/22/2024 CBC/C OMPLE TE BLD COUNT W/DIF F monocytes, absolute count 0.47 x10'3 /uL 0.29-0 .99 Not Available [facility] (Lab) [address] [place], [address], 03/22/2024 11:15:48 03/22/20 24 03/22/2024 CBC/C OMPLE TE BLD COUNT W/DIF F eosinophils, absolute count 0.30 x10'3 /uL 0.02-0 .53 Not Available [facility] (Lab) [address] [place], [address], 03/22/2024 11:15:48 03/22/20 24 03/22/2024 CBC/C OMPLE TE BLD COUNT W/DIF F basophils, absolute count 0.04 x10'3 /uL 0.01-0 .08 Not Available [facility] (Lab) [address] [place], [address], 03/22/2024 11:15:48 03/22/20 24 03/22/2024 CBC/C OMPLE TE BLD COUNT W/DIF F immature granulocytes ,absolute 0.01 x10'3 /uL 0.00-0 .05 Not Available [facility] (Lab) [address] [place], [address], 03/22/2024 11:15:48 03/22/20 24 03/22/2024 CBC/C OMPLE TE BLD COUNT W/DIF F nucleated red blood cells 0.0 % -0 Not Available [facility] (Lab) [address] [place], [address], 03/22/2024 11:15:48 03/22/20 24 03/22/2024 CBC/C OMPLE TE BLD COUNT W/DIF F NRBC# 0.00 x10'3 /uL Not Available [facility] (Lab) [address] [place], [address], 03/22/2024 11:15:48 03/22/2003/22/2024 LIPID PANEL cholesterol 122 mg/dL 140-19 9 low NIH ANDREY NSUS RECOM MENDA TION FOR TEDDY STERO L: ADULT CHILD LOW RISK: <200 <170 BORDE RLINE : <200- 239 ----- HIGH RISK: >240 >200 Not Available [facility] (Lab) [address] [place], [address], 03/22/2024 11:52:59 03/22/2003/22/2024 LIPID PANEL triglyceride s 36 mg/dL 0-150 NIH ANDREY NSUS REPOR T RECOM MENDA TION FOR TRIGL YCERI DEMARCO: ADULT CHILD LOW RISK: <150 ----- BODER LINE: 150-1 99 ----- HIGH RISK: >200 ----- Not Available [facility] (Lab) [address] [place], [address], 03/22/2024 11:52:59 03/22/20 24 03/22/2024 LIPID PANEL HDL cholesterol 66 mg/dL 40- Not Available [facility] (Lab) [address] [place], [address], 03/22/2024 11:52:59 03/22/20 24 03/22/2024 LIPID PANEL LDL cholesterol, calculated 49 mg/dL 0-130 NIH ANDREY NSUS REPOR T RECOM MENDA TIONS FOR LDL: ADULT CHILD LOW RISK <130 <110 (OPTI MAL LDL) <100 ----- BORDE RLINE : 130-1 59 ----- HIGH RISK: >160 >130 A TRIGL YCERI DE RESUL T >400 INVAL IDATE S THE CALCU LATIO N FOR LDL FRACT IONAT ION - THE LDL RESUL T WILL NOT BE REPOR PADMAJA. Not Available [facility] (Lab) [address] [place], [address], 03/22/2024 11:52:59 03/22/20 24 03/22/2024 COMPR EHENS IDALIA METAB OLIC PANEL sodium 137 mmol/ L 137-14 5 Not Available [facility] (Lab) [address] [place], [address], 03/22/2024 11:53:05 03/22/20 24 03/22/2024 COMPR EHENS IDALIA METAB OLIC PANEL potassium 4.2 mmol/ L 3.5-5. 1 Not Available [facility] (Lab) [address] [place], [address], 03/22/2024 11:53:05 03/22/20 24 03/22/2024 COMPR EHENS IDALIA METAB OLIC PANEL chloride 104 mmol/ L 98-107 Not Available [facility] (Lab) [address] [place], [address], 03/22/2024 11:53:05 03/22/20 24 03/22/2024 COMPR EHENS IDALIA METAB OLIC PANEL carbon dioxide 29 mmol/ L 22-30 Not Available [facility] [place] [facility] (Lab) [address] [place], [address], 03/22/2024 11:53:05 03/22/20 24 03/22/2024 COMPR EHENS IDALIA METAB OLIC PANEL anion gap 8.2 mmol/ L 14-22 low Not Available [facility] [place] [facility] (Lab) [address] [place], [address], 03/22/2024 11:53:05 03/22/20 24 03/22/2024 COMPR EHENS IDALIA METAB OLIC PANEL glucose 89 mg/dL 70-99 Not Available [facility] (Lab) [address] [place], [address], 03/22/2024 11:53:05 03/22/20 24 03/22/2024 COMPR EHENS IDALIA METAB OLIC PANEL BUN 19 mg/dL 8- Not Available [facility] (Lab) [address] [place], [address], 03/22/2024 11:53:05 03/22/20 24 03/22/2024 COMPR EHENS IDALIA METAB OLIC PANEL creatinine 0.67 mg/dL 0.66-1 .25 Not Available [facility] (Lab) [address] [place], [address], 03/22/2024 11:53:05 03/22/20 24 03/22/2024 COMPR EHENS IDALIA METAB OLIC PANEL GFR >60 Refer ence Range : [place] ge GFR Healt hy Adult : >60 mL/mi n/1.7 3 m2 Chron ic Kidne y Disea se: 15-60 mL/mi n/1.7 3 m2 Kidne y Failu re: <15/m L/min /1.73 m2 www.n iddk. nih.g ov The MDRD study equat ion has not been valid ated in child kaila <18 years of age; pregn ant women ; the elder ly >85 years of age; or in some racia l or ethni c subgr oups, such as Hispa nics. Outsi de the valid ated chris eters , estim ated GFR is less accur ate, requi ring clini agnes judgm ent on a case- by-ca se basis . Clini agnes inter preta tion for other races and ages must be made by the clini yuan. The MDRD study equat ion has not been valid ated for the evalu ation of serum creat inine relat ed to nutri robe l statu s or medic ation usage . For perso ns <18 years of age, a pedia tric GFR calcu lator is avail able on the [facility] websi te: https ://anna collins.lennie menjivar.o maria r/pr ofess ional s/kdo qi/gf r_cal culat or Not Available [facility] (Lab) [address] [place], [address], 03/22/2024 11:53:05 03/22/20 24 03/22/2024 COMPR EHENS IDALIA METAB OLIC PANEL alkaline phosphatase 53 U/L 38-126 Not Available [facility] (Lab) [address] [place], [address], 03/22/2024 11:53:05 03/22/20 24 03/22/2024 COMPR EHENS IDALIA METAB OLIC PANEL alanine aminotransfe rase 14 U/L 0-35 Not Available [facility] (Lab) [address] [place], [address], 03/22/2024 11:53:05 03/22/20 24 03/22/2024 COMPR EHENS IDALIA METAB OLIC PANEL aspartate aminotransfe rase 25 U/L 15-37 Not Available [facility] (Lab) [address] [place], [address], 03/22/2024 11:53:05 03/22/20 24 03/22/2024 COMPR EHENS IDALIA METAB OLIC PANEL bilirubin, total 0.60 mg/dL 0.20-1 .30 Not Available [facility] (Lab) [address] [place], [address], 03/22/2024 11:53:05 03/22/20 24 03/22/2024 COMPR EHENS IDALIA METAB OLIC PANEL calcium 9.4 mg/dL 8.4-10 .2 Not Available [facility] (Lab) [address] [place], [address], 03/22/2024 11:53:05 03/22/20 24 03/22/2024 COMPR EHENS IDALIA METAB OLIC PANEL total protein 7.4 g/dL 6.3-8. 2 Not Available [facility] (Lab) [address] [place], [address], 03/22/2024 11:53:05 03/22/20 24 03/22/2024 COMPR EHENS IDALIA METAB OLIC PANEL albumin 4.2 g/dL 3.0-4. 4 Not Available [facility] (Lab) [address] [place], [address], 03/22/2024 11:53:05 03/22/20 24 03/22/2024 COMPR EHENS IDALIA METAB OLIC PANEL globulin 3.2 g/dL 2.6-4. 2 Not Available [facility] (Lab) [address] [place], [address], 03/22/2024 11:53:05 03/22/20 24 03/22/2024 COMPR EHENS IDAILA METAB OLIC PANEL A/G ratio 1.3 ratio 1.0-2. 0 Not Available [facility] (Lab) [address] [place], [address], 03/22/2024 11:53:05 03/22/20 24 03/22/2024 T4 FREE free T4 1.16 NG/dL 0.78-2 .19 Not Available [facility] (Lab) [address] [place], [address], 03/22/2024 12:22:08 03/22/20 24 03/22/2024 TSH thyroid-stim ulating hormone 0.074 uIU/m L 0.465- 4.680 low Not Available [facility] (Lab) [address] [place], [address], 03/22/2024 12:23:46 03/22/20 24 03/22/2024 VITAM IN D 25-HY DROXY vd25oh 58.7 NG/mL 30-100 Vitam in D Statu s: Defic ient: <20 ng/mL Insuf ficie nt: 20-29 ng/mL Suffi cient : 30-10 0 ng/mL Not Available [facility] (Lab) [address] [place], [address], 03/22/2024 14:14:00 03/22/20 24 03/22/2024 VITAM IN B12 (KOLE ZAIDA ) vb12 830 pg/mL 239-93 1 Not Available [facility] (Lab) [address] [place], [address], 03/22/2024 14:58:52 03/22/20 24 03/22/2024 FOLAT E, SERUM /PLAS MA folate >20.0 NG/mL 2.76-2 0.0 Not Available [facility] (Lab) [address] [place], [address], 03/22/2024 14:58:53 06/14/20 24 06/12/2024 scree damián bredavid t sandra, bilat [facility] [address] [place] [address] Patishabana t Name: EMMA NEWBY ion #: [id number] Sex: F : 1954 8 Dictat ed By: Shanel bonner Attend ing Physic wes: ROSALIOLENA NELSON MURTJUDY Burns Orderprema donahue Physic wes: CAINPrema NELSON MURTJUDY A Exam Date: 2023 11:57 AM Exam Name: MG ORDAZ BREAST SANDRA BILAT Admitt ing Diagno sis(es ): PROCED URE: SCREEN ING MAMMOG CECIL WITH TOMOSY NTHESI S REASON FOR EXAM: screen ing mammog cecil. No person al histor y of breast cancer . Prior benign left breast surgic al biopsy . No family histor y of breast cancer . COMPAR JOSH: MG DIGITA L JEIMY BILAT SCREEN on DOS: 3, MG DIGITA L JEIMY BILAT SCREEN 2D on DOS: 2, MG DIGITA L JEIMY BILAT SCREEN 2D on DOS: 1 TECHNI QUE: Bilate ral CC and MLO views obtain ed. Images were obtain ed using a digita l tomosy nthesi s unit. Standa rd 2D and 3D tomosy nthesi s images were review ed. FINDIN GS: BREAST COMPOS ITION: C - The breast s are hetero geneou sly dense, which may obscur e small masses . In the right breast , no asymme trical parenc hymal patter n, amirah ectura l distor tion, pleomo rphic microc alcifi cation s or masses . In the left breast , no asymme trical parenc hymal patter n, amirah ectura l distor tion, pleomo rphic microc alcifi cation s or masses . IMPRES DANIEL: No mammog raphic eviden ce of malign tobin. RECOMM ENDATI ON: Recomm end annual mammog cecil. ASSESS MENT: BIRADS : 1 - Negati ve Page 1 [facility] [address] [facility], [place] [address] Patien t Name: EMMA NEWBY Access ion #: [id number] Sex: F : 1954 8 Dictat ed By: Shanel bonner Attend ing Physic wes: MARLEN Burns, ROSALIOLENA donahue Physic wes: CAINMARLEN CONTRERAS Exam Date: 2023 11:57 AM Exam Name: MG SCRN BREAST SANDRA BILAT Admitt ing Diagno sis(es ): Electr onical ly Signed by: Shanel bonner at 2023 09:24: 57 AM Page 2 INTERFACE [facility] (Imaging) [address] [place], [address], 06/14/2024 12:27:14 06/14/20 24 06/12/2024 MAMMO , scree damián, digit al, bilat eral No observ ation record ed. [facility] [address] [place], [address], 06/14/2024 13:22:37 Result Notes None recorded. Problems Name Problem SNOMED Code Status Onset Date Resolution Date Notes Provider Name and Address Organization Details Recorded Time Asthma 033155043 Active 2021 Not Available [facility] 4 09:38:54 Osteoarthr itis of knee 826001069 Active Not Available [facility] 4 09:38:54 Eruption 814427092 Active 2021 Not Available [facility] 4 09:38:54 Hyperthyro idism 42987537 Active 2021 Not Available [facility] 4 09:38:54 Essential hypertensi on 60710275 Active 2021 Not Available [facility] 4 09:38:54 Vitamin D deficiency 20577139 Active 2022 Not Available [facility] 4 09:38:54 Obstructiv e sleep apnea syndrome 57479909 Active 2022 Not Available [facility] 4 09:38:54 Hyperlipid emia 00755991 Active 2022 Not Available [facility] 4 09:38:54 Hypothyroi dism 04769239 Active 2022 Not Available [facility] 4 09:38:54 Bilateral carpal tunnel syndrome 9498826924973 9101 Active 2022 Not Available [facility] 4 09:38:53 Osteoporos is 71227155 Active 2022 Not Available [facility] 4 09:38:54 Urinary incontinen ce 411746457 Active 2022 Not Available [facility] 4 09:38:54 Gastroesop hageal reflux disease without esophagiti s 546421878 Active 2022 Not Available [facility] 4 09:38:54 Serum vitamin B12 below reference range 681199965 Active 2022 Not Available [facility] 4 09:38:54 Otalgia of left ear 0905589680 Active 2023 Sirisha burns MD [address], [place], [address] , [employer] [facility] [employer] [facility] 4 17:17:38 Pain in right hip joint 1229429580450 02 Active 2023 Sirisha burns MD [address], [place], [address] , [facility] 4 17:29:34 Upper respirator y infection 53598397 Active 2023 Cynthia Bolivar MA [facility], [employer] [facility] [employer] [facility] 4 12:40:25 Pain of left elbow joint 0643953701958 9104 Active 2023 Sirisha burns MD [address], [place], [address] , [employer] [facility] 4 10:08:43 Obesity 929272788 Active 2023 Sirisha burns MD [address], [place], [address] , [employer] [facility] [employer] [facility] 4 15:51:42 Notes:Medical History: Depre ssion Obesity with severe OSAHS, AHI = 42, 07/31/22 on CPAP c/o IVRC Hypothyroidism Hyperlipidemia Hypertension EF 60% Knee OA Procedure History: FARIBA 1998 Right knee surgery 2012 Right CTS release surgery 2021 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 Procedures Surgical History Date Name Laterality Status Provider Name and Address Organization Details Recorded Time 11/05/19 Medicare Wellness CPT Code, Initial completed Chio Deluca RN [place] - [place] [employer] [facility] 11/05/2023 09:56:24 Carpal tunnel surgery completed Not Available [facility] 10/02/2022 05:00:07 Hysterectomy completed Not Available [facility] 10/02/2022 05:00:07 Imaging Results Imaging Date Name Status LastModified by Organiz ation Details LastModified Time 06/12/2024 screening breast sandra, bilat active INTERFACE [facility] (Imaging) [address] [place], [address], 06/14/2024 12:27:14 06/12/2024 MAMMO, screening, digital, bilateral active [facility] [address] [place], [address], 06/14/2024 13:22:37 Procedure Notes None recorded. Medical Equipment None Reported. Allergies No known drug allergies Medications Name Sig Start Date Stop Date Status Note LastModified by Organization Details LastModified Time losartan 50 mg tablet TAKE 1 TABLET BY MOUTH DAILY active Not Available Not Available No t Available paroxetine 10 mg tablet TAKE 1 TABLET BY MOUTH DAILY( NO ALCOHOL, DRIVING OR OTHER SEDATING MEDICATIO NS) active Not Available Not Available No t Available atorvastati n 10 mg tablet TAKE 1 TABLET BY MOUTH EVERY DAY active Not Available Not Available No t Available valacyclovi r 1 gram tablet Take 1 tablet every 12 hours by oral route for 1 day. active Not Available Not Available No t Available diclofenac ER 100 mg tablet,exte nded release 24 hr TK 1 T PO QD 02/11 completed Not Available Not Available Not Available hydrocodone 5 mg-acetamin ophen 325 mg tablet 11/14 completed Not Available Not Available Not Available Mobic 7.5 mg tablet Take 1 tablet twice a day by oral route as needed for 15 days. active Not Available Not Available No t Available Zithromax Z-Alexander 250 mg tablet TAKE 2 TABLETS (500 MG) BY ORAL ROUTE ONCE DAILY FOR 1 DAY THEN 1 TABLET (250 MG) BY ORAL ROUTE ONCE DAILY FOR 4 DAYS 2024 active Not Available Not Available Not Avai lable acetaminoph en 300 mg-codeine 30 mg tablet 01/28 completed Not Available Not Available Not Available aspirin 81 mg tablet,nancy yed release TK 1 T PO QD 09/28 completed Not Available Not Available Not Available levothyroxi ne 75 mcg tablet TAKE 1 TABLET BY MOUTH EVERY MORNING ON AN EMPTY STOMACH active Not Available Not Available No t Available Serevent Diskus 50 mcg/dose powder for inhalation INHALE 1 PUFF BY MOUTH TWICE DAILY 03/24 completed Not Available Not Available Not Available levothyroxi ne 100 mcg tablet TAKE 1 TABLET BY MOUTH EVERY DAY 03/25 completed Not Available Not Available Not Available amoxicillin 875 mg tablet 12/21 completed Not Available Not Available Not Available amlodipine 10 mg tablet TK 1 T PO QD 01/28 completed Not Available Not Available Not Available benzonatate 100 mg capsule TAKE 1 CAPSULE BY MOUTH THREE TIMES DAILY FOR 7 DAYS NEEDED 11/04 completed Not Available Not Available Not Available pantoprazol e 40 mg tablet,nancy yed release TAKE 1 TABLET BY MOUTH EVERY MORNING 03/24 completed Not Available Not Available Not Available Cipro 500 mg tablet Take 1 tablet every 12 hours by oral route for 7 days. active Not Available Not Available No t Available metoprolol tartrate 50 mg tablet TK 1 T PO QD 01/28 completed Not Available Not Available Not Available hydrochloro thiazide 12.5 mg capsule TK ONE C PO QD 09/09 completed Not Available Not Available Not Available diclofenac sodium 75 mg tablet,nancy yed release TK 1 T PO BID WITH FOOD 01/16 completed Not Available Not Available Not Available hydrochloro thiazide 25 mg tablet TAKE 1 TABLET BY MOUTH DAILY BEFORE A MEAL active Not Available Not Available No t Available ibuprofen 600 mg tablet 01/28 completed Not Available Not Available Not Available methylpredn isolone 4 mg tablets in a dose pack FOLLOW PACKAGE DIRECTION S 03/25 completed Not Available Not Available Not Available albuterol sulfate HFA 90 mcg/actuati on aerosol inhaler INHALE 2 PUFFS BY MOUTH TWICE DAILY active Not Available Not Available No t Available amoxicillin 875 mg-potassiu m clavulanate 125 mg tablet TAKE 1 TABLET BY MOUTH TWICE DAILY 03/24 completed Not Available Not Available Not Available iron 65 mg tablet Take 1 tablet every day by oral route. 09/28 completed Not Available Not Available Not Available valsartan 160 mg tablet TK 1 T PO QD 02/26 completed Not Available Not Available Not Available Ciprodex 0.3 %-0.1 % ear drops,suspe nsion 01/28 completed Not Available Not Available Not Available metoprolol tartrate 25 mg tablet TAKE ONE-HALF (1/2) TABLET DAILY active Not Available Not Available No t Available solifenacin 5 mg tablet TAKE 1 TABLET BY MOUTH DAILY active Not Available Not Available No t Available ibandronate 150 mg tablet TAKE 1 TABLET BY MOUTH EVERY MONTH active Not Available Not Available No t Available Vitamin C 1 daily 09/28 completed Not Available Not Available Not Available vitamin E 180mg tablet daily 09/28 completed Not Available Not Available Not Available Vitamin D3 qd 09/28 completed Not Available Not Available Not Available multivitami n qd 09/28 completed Not Available Not Available Not Available Calcium 500 qd 09/28 completed Not Available Not Available Not Available diclofenac 1 % topical gel Apply 1 g every day by topical route as needed for 90 days. active Not Available Not Available No t Available Suprep Bowel Prep Kit 17.5 gram-3.13 gram-1.6 gram oral solution MIX AND DRINK UTD active Not Available Not Available No t Available Virtussin AC 10 mg-100 mg/5 mL oral liquid 01/28 completed Not Available Not Available Not Available Fluvirin (PF) 45 mcg(15 mcg x3)/0.5 mL intramuscul ar syringe active Not Available Not Available N ot Available Shingrix (PF) 50 mcg/0.5 mL intramuscul ar suspension, kit PHARMACIS T ADMINISTE RED IMMUNIZAT ION ADMINISTE RED AT TIME OF DISPENSIN G 01/16 completed Not Available Not Available Not Available Flucelvax Quad (PF) 60 mcg (15 mcg x 4)/0.5 mL IM syringe 05/20 completed Not Available Not Available Not Available Wixela Inhub 100 mcg-50 mcg/dose powder for inhalation INHALE 1 PUFF BY MOUTH TWICE DAILY active Not Available Not Available No t Available Fluad 2018- 65yr up(PF)45 mcg(15 mcgx3)/0.5 mL intramuscul ar syringe PHARMACIS T ADMINISTE RED IMMUNIZAT ION ADMINISTE RED AT TIME OF DISPENSIN G active Not Available Not Available No t Available Fluad Quad 4580-1184(6 5yr up)(PF) 60 mcg (15 mcg x 4)/0.5mL IM syringe PHARMACIS T ADMINISTE RED IMMUNIZAT ION ADMINISTE RED AT TIME OF DISPENSIN G 07/17 completed Not Available Not Available Not Available Flowflex COVID-19 Antigen Home Test kit USE DIRECTED 09/27 completed Not Available Not Available Not Available Zepbound 5 mg/0.5 mL subcutaneou s pen injector Inject 5 mg every week by subcutane ous route for 30 days. active Not Available Not Available No t Available Zepbound 2.5 mg/0.5 mL subcutaneou s pen injector Inject by subcutane ous route for 28 days. 07/21 completed Not Available Not Available Not Available Vitals Date Recorded Body height Body mass index (BMI) Body weight Body temperature Heart rate Systolic blood pressure Diastolic blood pressure Provider Name and Address Organization Details Last Updated DateTime 4 160.02 cm 34.5 kg/m2 26988.5 1 g 97.8 [degF] 74 /min 124 mm[Hg] 76 mm[Hg] JOSE Vargas [employer] 4 09:47:01 Date Recorded Body height Body mass index (BMI) Body weight Body temperature Heart rate Respiratory rate Oxygen saturation Oxygen saturation in Arterial blood by Pulse oximetry Pain severity - 0-10 verbal numeric rating [Score] - Reported Systolic blood pressure Diastolic blood pressure Provider Name and Address Organization Details Last Updated DateTime 4 160.02 cm 39.3 kg/m2 278928. 51 g 97.8 [degF] 82 /min 16 /min 99 % 99 % 0 134 mm[Hg] 76 mm[Hg] Jason Heredia LPN [employer] 4 15:45:58 Date Recorded Body height Body mass index (BMI) Body weight Body temperature Heart rate Respiratory rate Oxygen saturation Oxygen saturation in Arterial blood by Pulse oximetry Pain severity - 0-10 verbal numeric rating [Score] - Reported Systolic blood pressure Diastolic blood pressure Provider Name and Address Organization Details Last Updated DateTime 4 160.02 cm 36.3 kg/m2 98429.4 4 g 97.7 [degF] 74 /min 15 /min 99 % 99 % 0 134 mm[Hg] 70 mm[Hg] Jason Heredia LPN [facility] [employer] [facility] 4 16:09:19 Date Recorded Body height Body mass index (BMI) Body weight Body temperature Heart rate Systolic blood pressure Diastolic blood pressure Provider Name and Address Organization Details Last Updated DateTime 160.02 cm 36.8 kg/m2 63931.2 1 g 97.4 [degF] 78 /min 120 mm[Hg] 72 mm[Hg] JOSE Vargas [facility] [employer] [facility] 4 15:29:27 Date Recorded Body height Body mass index (BMI) Body weight Body temperature Systolic blood pressure Provider Name and Address Organization Details Last Updated DateTime 07/21/2024 160.02 cm 35.6 kg/m2 83291.07 g 97.1 [degF] 136 mm[Hg] Manuela Gayle Pillo [facility] [employer] [facility] 4 09:28:59 Social History Question Answer Notes LastModified by Organizat ion Details LastModified Time Tobacco Smoking Status Never Smoker DANNY Meade [facility] [employer] [facility] 12/02/2022 09:49:16 Do You Have An Advance Directive? No [id number] Information not available 10/02/2022 What Is Your Level Of Alcohol Consumption? None [id number] Information not available 10/02/2022 Are You Blind Or Do You Have Difficulty Seeing? No [email or web address] Information not available 12/02/2022 What Is Your Level Of Caffeine Consumption? None [id number] Information not available 10/02/2022 In The 14 Days Before Symptom Onset, Have You Had Close Contact With A [facility] COVID-19 While That Case Was Ill? No [email or web address] Information not available 12/02/2022 In The 14 Days Before Symptom Onset, Have You Had Close Contact With A Person Who Is Under Investigation For COVID-19 While That Person Was Ill? No [email or web address] Information not available 12/02/2022 Are You Deaf Or Do You Have Serious Difficulty Hearing? No [email or web address] Information not available 12/02/2022 What Type Of Diet Are You Following? REGULAR [id number] Information not available 10/02/2022 What Is The Highest Grade Or Level Of School You Have Completed Or The Highest Degree You Have Received? [id number] [email or web address] Information not available 12/02/2022 Do You Have An Electrostatic Air Filter? No Information not available 12/02/2022 What Is Your Occupation? [employer] [email or web address] Information not available 12/02/2022 Have There Been Any Changes To Your Family Or Social Situation? No [email or web address] Information not available 12/02/2022 What Is The Fluoride Status Of Your Home? Fluoridated [email or web address] Information not available 12/02/2022 Are There Any Guns Present In Your Home? Yes Information not available 12/02/2022 Do You Have A Humidifier? No Information not available 12/02/2022 Do You Use Insect Repellent Routinely? Yes [email or web address] Information not available 12/02/2022 Where Do You Live? [facility] Information not available 12/02/2022 Guns Present In The Home? Yes [email or web address] Information not available 11/05/2023 Are You Able To Care For Yourself? Yes [email or web address] Information not available 11/05/2023 Are You Blind Or Do Yo Have Difficulty Seeing? No [email or web address] Information not available 11/05/2023 Are You Deaf Or Do You Have Serious Difficulty Hearing? No Information not available 11/05/2023 Live Alone Of With Others? With Others [email or web address] Information not available 11/05/2023 Do You Have A Medical Power Of [place] Stitcher? No [email or web address] Information not available 12/02/2022 Do You Have Moisture Problems In Your Home? No Information not available 12/02/2022 What Was The Date Of Your Most Recent Tobacco Screening? 07/21/2024 [email or web address] Information not available 07/21/2024 Do You Have Any Pets? No [email or web address] Information not available 12/02/2022 What Is Your Relationship Status? [id number] Information not available 10/02/2022 Do You Use Your Seat Belt Or Car Seat Routinely? Yes Information not available 12/02/2022 Do You Have Smoke And Carbon Monoxide Detectors In Your Home? Yes [email or web address] Information not available 12/02/2022 Are You Passively Exposed To Smoke? No [email or web address] Information not available 12/02/2022 Are There Any Smokers In Your House? No [email or web address] Information not available 12/02/2022 Do You Feel Stressed (tense, Restless, Nervous, Or Anxious, Or Unable To Sleep At Night)? [id number] [email or web address] Information not available 12/02/2022 Do You Use Any Illicit Or Recreational Drugs? No [email or web address] Information not available 12/02/2022 Do You Use Sunscreen Routinely? No [email or web address] Information not available 12/02/2022 Have You Recently Traveled Abroad? No [email or web address] Information not available 12/02/2022 Do You Have Any Dietary Restrictions? No [email or web address] Information not available 12/02/2022 Do You Or Have You Ever Used Any Other Forms Of Tobacco Or Nicotine? No [email or web address] Information not available 12/02/2022 Sex: Female Functional Status Question Answer Note LastModified by Organizat ion Details LastModified Time Do you have difficulty walking or climbing stairs? No [email or web address] Information not available 12/02/2022 Do you have transportation difficulties? No [email or web address] Information not available 12/02/2022 Are you able to walk? YESWOREST [email or web address] Information not available 12/02/2022 Do you have difficulty doing errands alone? No [email or web address] Information not available 12/02/2022 Are you able to care for yourself? Yes [email or web address] Information n ot available 12/02/2022 Do you have difficulty dressing or bathing? No [email or web address] Information not available 12/02/2022 What is your exercise level? Moderate 3-4 hours a week [id number] Information not available 10/02/2022 Mental Status Question Answer Note LastModified by Organization D etails LastModified Time Do you have difficulty concentrating, remembering or making decisions? No [email or web address] Information no t available 12/02/2022 Family History Relationship Description Onset Age of this Age Resolved Age Notes LastModified by Organization Details LastModified Time Mother Cerebrovascu lar accident [email or web address] Not available 07/21/2024 09:21:10 Mother Hypertensive disorder [email or web address] Not available 2022 10:40:29 Father Congestive heart failure [email or web address] Not available 09:21:10 Father Hypertensive disorder [email or web address] Not available 2022 10:40:24 Sister Hypertensive disorder [email or web address] Not available 2022 10:40:33 Sister Malignant tumor of colon [email or web address] Not available 09:21:10 Medical History Condition Response ARTHRITIS Y OSTEOARTHRITIS Y HAVE YOU BEEN HOSPITALIZED OR SEEN IN [facility] IN THE PAST YEAR ? N Gynecological HistoryNo gynecological history recorded. Obstetrics History GPAL:G 0 P 0 0 0 0 Immunizations Vaccine Type Date Status Note Provider Nam e and Address Organization Details Recorded Time Influenza, adjuvanted, trivalent, PF 9 completed Manuela [place], RMA null, [place] - [facility] 07/21/2024 09:18:51 Influenza, MDCK, quadrivalent, PF 8 completed Manuela Nalini, RMA null, [place] - [facility] 07/21/2024 09:18:51 zoster recombinant 0 completed Manuela Nalini, RMA null, [place] - [facility] 07/21/2024 09:18:51 zoster recombinant 9 completed Manuela [place], RMA null, [place] - [facility] 07/21/2024 09:18:51 Influenza, adjuvanted, quadrivalent, PF 1 completed Manuela Gayle RMA null, [facility] 07/21/2024 09:18:51 COVID-19, mRNA, LNP-S, PF, 100 mcg/0.5mL dose or 50 mcg/0.25mL dose 2 completed [facility] 09:18:51 Influenza, split virus, trivalent, PF 7 completed [facility]/2024 09:18:51 Influenza, split virus, quadrivalent, PF 0 completed [facility]/21/2024 09:18:51 Influenza, split virus, quadrivalent, PF 6 completed [facility] 07/21/2024 09:18:51 RSV, recombinant, protein subunit RSVpreF, adjuvant reconstituted, 0.5 mL, PF 3 completed [facility] 07/21/2024 09:19:12 COVID-19, mRNA, LNP-S, PF, 50 mcg/0.5 mL 4 completed [facility] 07/21/2024 09:19:12 COVID-19, mRNA, LNP-S, PF, 50 mcg/0.5 mL 3 completed [facility] 07/21/2024 09:19:12 Influenza, high-dose, trivalent, PF 4 completed [facility] 07/21/2024 09:19:12 Influenza, high-dose, quadrivalent, PF 3 completed [facility] 05/07/2023 09:56:36 COVID-19, mRNA, LNP-S, bivalent, PF, 50 mcg/0.5 mL or 25mcg/0.25 mL dose 2 completed Manuela Gayle RMA null, [facility] 07/21/2024 09:18:51 COVID-19, mRNA, LNP-S, PF, 100 mcg/0.5mL dose or 50 mcg/0.25mL dose 1 completed Manuela Gayle RMA null, [facility] 07/21/2024 09:18:51 Influenza, split virus, quadrivalent, preservative 1 completed Manuela Gayle RMA null, [facility] 07/21/2024 09:18:51 COVID-19, mRNA, LNP-S, PF, 100 mcg/0.5mL dose or 50 mcg/0.25mL dose 1 completed Manuela Gayle RMA null, [facility] 07/21/2024 09:18:51 COVID-19, mRNA, LNP-S, PF, 100 mcg/0.5mL dose or 50 mcg/0.25mL dose 1 completed Manuela Gayle RMA null, [facility] 07/21/2024 09:18:51 Influenza, high-dose, trivalent, PF 0 completed Manuela Gayle RMA null, [facility] 07/21/2024 09:18:51 Influenza, high-dose, trivalent, PF 9 completed Manuela Gayle RMA null, [facility] 07/21/2024 09:18:51 influenza, unspecified formulation 8 completed Manuela Gayle RMA null, [facility] 07/21/2024 09:18:51 influenza, unspecified formulation 7 completed Manuela Gayle RMA null, [facility] 07/21/2024 09:18:51 Influenza, high-dose, quadrivalent, PF 2 completed Not Available [facility] 08/29/2023 09:38:54 pneumococcal polysaccharide PPV23 0 completed Not Available [facility] 08/29/2023 09:38:54 Pneumococcal conjugate PCV 13 9 completed Manuela Gayle, JOSE holl[place], [place] - [facility] 07/21/2024 09:18:51 Tdap 8 completed Not Available [facility] 08/29/2023 09:38:54 Past Encounters Encounter ID Performer Location Encounter Start Date Encounter Closed Date Diagnosis/Indication Diagnosis SNOMED-CT Code Diagnosis ICD10 Code Diagnosis Note [id number] [facility] [address] [place] [address] 11/28/2020 00:00:00 11/28/2020 10:14:14 [id number] [facility] [address] [place] [address] 01/09/2021 00:00:00 01/09/2021 10:30:50 [id number] [facility] [place] [place] [address] [place] [address] 01/15/2021 00:00:00 01/15/2021 09:59:52 [id number] [facility] [address] [place] [address] 07/16/2021 00:00:00 07/16/2021 12:00:08 [id number] [facility] [address] [place] [address] 07/17/2021 00:00:00 07/17/2021 16:36:01 [id number] [facility] [address] [place] [address] 08/17/2021 00:00:00 08/17/2021 10:47:32 [id number] [facility] [address] [place] [address] 09/28/2021 00:00:00 09/28/2021 09:45:34 [id number] [facility] [place] [place] [address] [place] [address] 11/14/2021 00:00:00 11/14/2021 09:58:11 [id number] [facility] Internal Med [place] [address] [place] [address] [place] [address] 03/25/2022 00:00:00 03/25/2022 10:00:59 [id number] Daniela Bonilla MD [facility] Pulmonolo gy [address], [address] [address] 12/02/2022 09:47:22 12/03/2022 07:46:20 Obstructive sleep apnea syndrome 74381082 G47.33 [id number] Sirisha burns MD [facility] Internal [facility] [place] [address] [place] [address] y , [place] [address] 12/04/2022 09:23:45 12/04/2022 10:10:16 Screening - NAD 812387986 Z13.9 C-scope: 10/30/16, next 3 years, ordered again 01/17/2020 C-scope: 01/27/2020 : Dr Traore n: next in 5 years Mammogram: 12/22/18: NegativeMa mmogram: 12/29/2019 : NegativeMa mmogram: 01/25/2021 : NegMammogr am: 03/18/2022 : Neg PAP: Dr Peraza, in [facility] next apt in 09/2019, takes paroxitine for 'hot flashes' UTD flu shotUTD Tdap 01/28/18UT D PCV #13 06/21/19, #23 07/17/2020 UTD on COVID 19 vaccineCan also so the shingles vaccine RTC in 4 monthsDo labsER if worse she and her did verbalize her understand ing of the above Essential hypertension 13837660 I10 On HCTZ 25mg dailyOn losartan 50mg dailyOn metoprolol 25mg 1/2 tab daily, d/c this as she was having some dizzy spells 11/14/2021 Keep BP log Hyperlipidemia 46518010 E78.5 On ASAOn atorvastat in 10mg daily Get labs Hypothyroidism 48024613 E03.9 On synthroid 75mcgs daily Does wellGet labs Bilateral carpal tunnel syndrome 7512868086 6102095 G56.03 Sees kathy SANDERS S/p injections Does well Osteoporosis 28617322 M8 1.0 DEXA: 12/29/2019 DEXA: 03/25/2022 On ibandronat e, knows how to take this, and not to take 2 weeks prior to any dental procedure Does well Urinary incontinence 165 056967 R32 On solifenaci n 5mg dailyDoes well Asthma 542230710 J45.90 9 On proairOn sereventDo es well, does also see Dr Bonilla pulmonary Screening mammography 24 837276 Z12.31 Obstructiv e sleep apnea syndrome 35851654 G47.33 Sleep study 07/31/2022 Dr Bonilla 12/02/2022 , on CPAP [id number] Sirisha burns MD [facility] [place] [address] [facility] , [facility] [place] [address] 05/07/2023 09:17:08 05/07/2023 09:54:23 Screening - NAD 653640140 Z13.9 C-scope: 10/30/16, next 3 years, ordered again 01/17/2020 C-scope: 01/27/2020 : Dr Traore n: next in 5 years Mammogram: 12/22/18: NegativeMa mmogram: 12/29/2019 : NegativeMa mmogram: 01/25/2021 : NegMammogr am: 03/18/2022 : NegMammogr am: 05/02/2023 : Neg DEXA: 12/04/2022 : Osteopenia PAP: Dr Peraza, in [facility] next apt in 09/2019, takes paroxitine for 'hot flashes' UTD flu shotUTD Tdap 01/28/18UT D PCV #13 06/21/19, #23 07/17/2020 UTD on COVID 19 vaccineCan also so the shingles vaccine RTC in 4 monthsDo labsER if worse she and her did verbalize her understand ing of the above Essential hypertension 53265665 I10 Stress test 04/14/2023 : [facility] On HCTZ 25mg dailyOn losartan 50mg dailyOn metoprolol 25mg 1/2 tab daily, d/c this as she was having some dizzy spells 11/14/2021 Keep BP log Hyperlipidemia 86929333 E78.5 On ASAOn atorvastat in 10mg daily Get labs Hypothyroidism 69997695 E03.9 On synthroid 75mcgs daily Does wellGet labs Bilateral carpal tunnel syndrome 6680620883 3559074 G56.03 Sees kathy Barrera PA S/p injections Does well Osteoporosis 45549411 M8 1.0 DEXA: 12/29/2019 DEXA: 03/25/2022 On ibandronat e, knows how to take this, and not to take 2 weeks prior to any dental procedure Does well Urinary incontinence 165 971454 R32 On solifenaci n 5mg dailyDoes well Asthma 171845025 J45.90 9 On proairOn serevent, but not taking this d/t cost, will start on advairDoes well, does also see Dr Bonilla pulmonary Obstructiv e sleep apnea syndrome 53257536 G47.33 Sleep study 07/31/2022 Dr Bonilla 12/02/2022 , on CPAP Vitamin D deficiency 347 15151 E55.9 Serum yazmin min B12 below reference range 106829665 R79.89 Administra tion of influenza vaccine 76590319 Z23 [id number] Sirisha burns MD [facility] Internal Med Hannah jaya [address] [facility] y , [place] [address] 10/20/2023 17:04:49 10/20/2023 17:32:42 Otalgia of left ear 8006868729 H92.02 Mildly red TM, states that she was shampooing and some watter may have penetrated the L EAC, will start on augmentinS he has noted some cough too, get on tessalon perles for thisNotify if not better, ER if worse Pain in ri ght hip joint 2985664211 22463 M25.551 Intermitte nt, none now, will get XRaysMay need to do PT [id number] Sirisha burns MD [facility] [place] [address] [place] [address] 11/05/2023 09:15:02 11/05/2023 09:55:08 Screening - NAD 409464386 Z13.9 C-scope: 10/30/16, next 3 years, ordered again 01/17/2020 C-scope: 01/27/2020 : Dr Traore n: next in 5 years Mammogram: 12/22/18: NegativeMa mmogram: 12/29/2019 : NegativeMa mmogram: 01/25/2021 : NegMammogr am: 03/18/2022 : NegMammogr am: 05/02/2023 : Neg DEXA: 12/04/2022 : Osteopenia PAP: Dr Peraza, in [facility] next apt in 09/2019, takes paroxitine for 'hot flashes' UTD flu shotUTD Tdap 01/28/18UT D PCV #13 06/21/19, #23 07/17/2020 UTD on COVID 19 vaccineCan also so the shingles vaccineGet RSV vaccine RTC in 4 monthsDo labsER if worse she and her did verbalize her understand ing of the above Essential hypertension 59889575 I10 Stress test 04/14/2023 : [facility] On HCTZ 25mg dailyOn losartan 50mg dailyOn metoprolol 25mg 1/2 tab daily, d/c this as she was having some dizzy spells 11/14/2021 Keep BP log Hyperlipidemia 34115487 E78.5 On ASAOn atorvastat in 10mg daily Get labs Hypothyroidism 37526813 E03.9 On synthroid 75mcgs daily Does wellGet labs Bilateral carpal tunnel syndrome 3067476592 8369443 G56.03 Sees kathy SANDERS S/p injections Does well Osteoporosis 30640049 M8 1.0 DEXA: 12/29/2019 DEXA: 03/25/2022 On ibandronat e, knows how to take this, and not to take 2 weeks prior to any dental procedure Does well Urinary incontinence 165 872507 R32 On solifenaci n 5mg dailyDoes well Asthma 504856621 J45.90 9 On proairOn serevent, but not taking this d/t cost, will start on advairDoes well, does also see Dr Bonilla pulmonary Obstructiv e sleep apnea syndrome 09770340 G47.33 Sleep study 07/31/2022 Dr Bonilla 12/02/2022 , on CPAP Vitamin D deficiency 347 70964 E55.9 Serum yazmin min B12 below reference range 598679731 R79.89 Pain in ri ght hip joint 4107722086 76924 M25.551 Intermitte nt, none now, will get XRaysMay need to do PT Xray 10/29/2023 : NegGet PT Adult heal th examination 289100548 Z00.00 Screening for disorder 185793052 Z13.9 [id number] Daniela Bonilla MD [facility] Pulmonolo gy [address] [address] 12/03/2023 09:45:49 12/04/2023 08:51:38 Obstructive sleep apnea syndrome 83340795 G47.33 [id number] Sirisha burns MD [facility] Internal Med [address] , [place] [address] 03/24/2024 09:34:24 03/24/2024 10:11:47 Screening - NAD 114457255 Z13.9 C-scope: 10/30/16, next 3 years, ordered again 01/17/2020 C-scope: 01/27/2020 : Dr Traore n: next in 5 years Mammogram: 12/22/18: NegativeMa mmogram: 12/29/2019 : NegativeMa mmogram: 01/25/2021 : NegMammogr am: 03/18/2022 : NegMammogr am: 05/02/2023 : Neg DEXA: 12/04/2022 : Osteopenia PAP: [facility] [place] apt [place], takes paroxitine for 'hot flashes' UTD flu shotUTD Tdap 01/28/18UT D PCV #13 06/21/19, #23 07/17/2020 UTD on COVID 19 vaccineCan also so the shingles vaccineGet RSV vaccine RTC in 4 monthsDo labsER if worse she and her did verbalize her understand ing of the above Essential hypertension [id number] I10 Stress test 04/14/2023 : SLHV On HCTZ 25mg dailyOn losartan 50mg dailyOn metoprolol 25mg 1/2 tab daily, d/c this as she was having some dizzy spells 11/14/2021 Keep BP log Hyperlipidemia 74276727 E78.5 On ASAOn atorvastat in 10mg daily Get labs Hypothyroidism 12170836 E03.9 On synthroid 75mcgs daily Does wellGet labs Bilateral carpal tunnel syndrome [id number] 1277898 G56.03 Sees kathy SANDERS S/p injections Does well Osteoporosis 08584628 M8 1.0 DEXA: 12/29/2019 DEXA: 03/25/2022 On ibandronat e, knows how to take this, and not to take 2 weeks prior to any dental procedure Does well Urinary incontinence 165 840353 R32 On solifenaci n 5mg dailyDoes well Asthma 821976047 J45.90 9 On proairOn serevent, but not taking this d/t cost, will start on advairDoes well, does also see Dr Bonilla pulmonary Obstructiv e sleep apnea syndrome 05669797 G47.33 Sleep study 07/31/2022 Dr Bonilla 12/02/2022 , on CPAP Vitamin D deficiency 347 12758 E55.9 Serum yazmin min B12 below reference range 563991923 R79.89 Pain in ri ght hip joint 3071084286 45155 M25.551 Intermitte nt, none now, will get XRaysMay need to do PT Xray 10/29/2023 : NegGet PT Pain of le ft elbow joint 7579884557 9627688 M25.522 Screening mammography 24 818878 Z12.31 [id number] Sirisha burns MD [facility] [address] [facility] [address] [place] [address] 06/07/2024 14:55:28 06/07/2024 16:12:15 Obesity 949892249 E66.9 She is agreeable to start on zepboundSh e denies any MEN2, MCT or thyroid or parathyroi d or pancreatic complaints All side effects explained to her and her husbandShe will bring the zepbound to be taught how to use this medication Must use supplement s and also hydrate Essential hypertension 57015828 I10 Stress test 04/14/2023 : [facility] On HCTZ 25mg dailyOn losartan 50mg dailyOn metoprolol 25mg 1/2 tab daily, d/c this as she was having some dizzy spells 11/14/2021 Keep BP log Hyperlipidemia 11403350 E78.5 On ASAOn atorvastat in 10mg daily Get labs Hypothyroidism 38101722 E03.9 On synthroid 75mcgs daily Does wellGet labs [id number] Sirisha burns MD [facility] [address] [place] [address] 06/14/2024 15:34:47 06/14/2024 16:36:47 Obesity 487407451 E66.9 She is agreeable to start on zepboundSh e denies any MEN2, MCT or thyroid or parathyroi d or pancreatic complaints All side effects explained to her and her husbandShe will bring the zepbound to be taught how to use this medication Must use supplement s and also hydrate OV 06/14/2024 : Since GLP-1 was not approved by her insurance, she is to try to diet and exercise, does not want to be on the phentermin e, will keep her f/u apt as scheduled [id number] Sirisha burns MD [facility] Internal Med [facility] [address] [facility] [place] [facility] [place] [address] 07/06/2024 15:02:22 07/06/2024 16:04:07 Obesity 059727182 E66.9 She is agreeable to start on zepboundSh e denies any MEN2, MCT or thyroid or parathyroi d or pancreatic complaints All side effects explained to her and her husbandShe will bring the zepbound to be taught how to use this medication Must use supplement s and also hydrate OV 06/14/2024 : Since GLP-1 was not approved by her insurance, she is to try to diet and exercise, does not want to be on the phentermin e, will keep her f/u apt as scheduled OV 07/06/2024 :She denies any MEN2, MCT or thyroid or parathyroi d or pancreatic complaints All side effects explained to her and her , hydrate and use supplement sDemonstar padmaja use of the pen [id number] Sirisha burns MD [facility] [address] [facility] [address] [place] [address] 07/21/2024 09:20:09 07/21/2024 09:55:21 Obesity 944381753 E66.9 She is agreeable to start on zepboundSh e denies any MEN2, MCT or thyroid or parathyroi d or pancreatic complaints All side effects explained to her and her husbandShe will bring the zepbound to be taught how to use this medication Must use supplement s and also hydrate OV 07/21/2024 :Zepbound renewed at 5mg weekly, has tolerated the 2.5mg weekly very well Essential hypertension 76589688 I10 Stress test 04/14/2023 : SLHV On HCTZ 25mg dailyOn losartan 50mg dailyOn metoprolol 25mg 1/2 tab daily, d/c this as she was having some dizzy spells 11/14/2021 Keep BP log Hyperlipidemia 11544646 E78.5 On ASAOn atorvastat in 10mg daily Get labs Hypothyroidism 86397202 E03.9 On synthroid 75mcgs daily Does wellGet labs Screening - NAD 86822338 3 Z13.9 C-scope: 10/30/16, next 3 years, ordered again 01/17/2020 C-scope: 01/27/2020 : Dr Traore n: next in 5 years Mammogram: 12/22/18: NegativeMa mmogram: 12/29/2019 : NegativeMa mmogram: 01/25/2021 : NegMammogr am: 03/18/2022 : NegMammogr am: 05/02/2023 : NegMammogr am: 06/12/2024 : Neg DEXA: 12/04/2022 : Osteopenia On ibandronat e, understand s how to use this PAP: Dr Peraza, in [facility] next apt [facility] 09/2019, takes paroxitine for 'hot flashes' UTD flu shotUTD Tdap 01/28/18UT D PCV #13 06/21/19, #23 07/17/2020 UTD on COVID 19 vaccineCan also so the shingles vaccineGet RSV vaccine RTC in 3 monthsDo labsER if worse she and her did verbalize her understand ing of the above Bilateral carpal tunnel syndrome [id number] 5214416 G56.03 Sees kathy Barrera PA S/p injections Does well Osteoporosis 56251446 M8 1.0 DEXA: 12/29/2019 DEXA: 03/25/2022 On ibandronat e, knows how to take this, and not to take 2 weeks prior to any dental procedure Does well Urinary incontinence 165 232164 R32 On solifenaci n 5mg dailyDoes well Asthma 516344476 J45.90 9 On proairNot on sereventNo t on advairDoes well, does also see Dr Bonilla pulmonary Obstructiv e sleep apnea syndrome 72707775 G47.33 Sleep study 07/31/2022 Dr Bonilla 12/02/2022 , on CPAP Vitamin D deficiency 347 04260 E55.9 Serum yazmin min B12 below reference range 424928395 R79.89 Pain in ri ght hip joint 6799943881 34761 M25.551 Intermitte nt, none now, will get XRaysMay need to do PT Xray 10/29/2023 : NegGet PT Health Concerns Section Related Observation LastModified by Organization Detai ls LastModified Time None Recorded Concern Status LastModified by Organization Details LastModified Time None Recorded Advance Directives Directive N: Payers Encounter Date Sequence Insurance Name Policy Number Policy Dillard Covered Member ID Dillard Member ID Guarantor Name 03/24/2024 1 [place] Emma Newby [id number] Emma Newby 03/24/2024 2 WPS - FOR LIFE (MEDICARE SUPPLEMENT) Emma Newby [id number] Emma Newby 06/07/2024 [place] Newby [id number] Emma Newby 06/07/2024 2 WPS - FOR LIFE (MEDICARE SUPPLEMENT) Emma Newby [id number] Emma Newby 06/14/2024 1 [place] Newby [id number] Emma Newby 06/14/2024 2 WPS - FOR LIFE (MEDICARE SUPPLEMENT) Emma Newby [id number] Emma Newby 07/06/2024 1 [place] Newby [id number] Emma Newby 07/06/2024 2 WPS - FOR LIFE (MEDICARE SUPPLEMENT) Emma Newby [id number] Emma Newby 07/21/2024 1 [place] Emma Newby [id number] Emma Newby 07/21/2024 2 WPS - FOR LIFE (MEDICARE SUPPLEMENT) Emma Newby [id number] Emma Newby Notes Date Note Type Note Provider Name and Address Organization Details Recorded Time 03/24/2024 text/html Here to edis Henry PMD: Dr Nelson, last apt on 12/26/17Past Hx:HTNHLDDepressionC OPDReviewed social family and surgical historyHere as she would like to get her medication refills and also get vesicareShe feels that she is doing well at this time OV 02/11/18:Here for her 2 week apt for a BP checkShe is here with her and feels that she is doing wellShe did do the labs OV 03/11/18:Here for her routine aptIs doing well, is here with her OV 05/07/18:Here as she is having some ear pain in theNo fevers or chillsNo N/VNo dizziness, no ear d/cAlso has noted a small 'herpes blister' on the chin, she states that this happens when she has an ear infection or any other infection OV 05/20/18:Here for her BP check and her ear infectionFeels that she is doing well at this time OV 06/10/18:Here for her routine aptShe has done labs on 06/09/18Has R knee pain since 3 monthsHas a hx of asthma OV 09/09/18:Here for her routine aptHere with her husbandLabs done on 09/07/18 OV 12/21/18:Here for her routine aptShe did do the labs and feels that she is doing OV 06/21/19:Here for her follow up aptShjaya feels wellShe did do the labs on 06/09/19 OV 01/17/2020:Here for her routine aptShe feels wellShe did do the labs OV 04/03/2020:ACV:Here with LBPLocated on the L lower lateral back, dull ache, 2/10 painNo N/T or weakness in the legsNo acute or remote traumaNo loss of bowel or bladder controlShe is here for her MWV also OV 07/17/2020:Here for her routine aptShe is doing very wellShe did do the labs and she is here with her OV 01/15/2021:Here for her routine aptShe is here with her husbandAnetae did do the labsShjaya has seen the PA for Dr Perdue for hand pain is s/p injections OV 07/16/2021:Here for her routine apt, with her husbandShe is doing wellIs to see Dr Perdue tomorrow OV 11/14/2021:Here for her routine aptShe is doing well, but feels that the metoprolol is still making her dizzyShe did do the labs and is wondering about her TSH and FT4 and thyroid medicine doseShe is here with Emiliano OV 03/25/2022:Here for her f/u apt, she is doing well, here with her OV 12/04/2022: Here for her f/u apt she is doing well, here with her OV 05/07/2023: Here for her f/u apt, she is doing very well, she did do the labs and is here with her OV 10/20/2023: ACV: L ear ache, since 2-3 days, no d/c from ear, feels a throbbing sensation, here with her Emiliano, wants to also get Xrays for intermittent R hip pain, none today, no acute or remote trauma OV 11/05/2023: Here for her f/u apt and MWV, is doing well, did do the labs, still has some intermittent R hip pain, here with her OV 03/24/2024: Here for her routine apt, she is here with her , she feels well Sirisha Hawkins MD [address], [address], [place], [address], [place] [facility] 03/25/2024 15:39:54 06/07/2024 text/html Here to edis Henry PMD: Dr Nelson, last apt on 12/26/17Past Hx:HTNHLDDepressionC OPDReviewed social family and surgical historyHere as she would like to get her medication refills and also get vesicareShe feels that she is doing well at this time OV 02/11/18:Here for her 2 week apt for a BP checkShe is here with her and feels that she is doing wellShe did do the labs OV 03/11/18:Here for her routine aptIs doing well, is here with her OV 05/07/18:Here as she is having some ear pain in theNo fevers or chillsNo N/VNo dizziness, no ear d/cAlso has noted a small 'herpes blister' on the chin, she states that this happens when she has an ear infection or any other infection OV 05/20/18:Here for her BP check and her ear infectionFeels that she is doing well at this time OV 06/10/18:Here for her routine aptShe has done labs on 06/09/18Has R knee pain since 3 monthsHas a hx of asthma OV 09/09/18:Here for her routine aptHere with her husbandLabs done on 09/07/18 OV 12/21/18:Here for her routine aptShe did do the labs and feels that she is doing OV 06/21/19:Here for her follow up aptShe feels wellShe did do the labs on 06/09/19 OV 01/17/2020:Here for her routine aptShe feels wellShe did do the labs OV 04/03/2020:ACV:Here with LBPLocated on the L lower lateral back, dull ache, 2/10 painNo N/T or weakness in the legsNo acute or remote traumaNo loss of bowel or bladder controlShe is here for her MWV also OV 07/17/2020:Here for her routine aptShe is doing very wellShe did do the labs and she is here with her OV 01/15/2021:Here for her routine aptShe is here with her husbandShe did do the labsShe has seen the PA for Dr Perdue for hand pain is s/p injections OV 07/16/2021:Here for her routine apt, with her husbandShe is doing wellIs to see Dr Perdue tomorrow OV 11/14/2021:Here for her routine aptShe is doing well, but feels that the metoprolol is still making her dizzyShe did do the labs and is wondering about her TSH and FT4 and thyroid medicine doseShe is here with Emiliano OV 03/25/2022:Here for her f/u apt, she is doing well, here with her OV 12/04/2022: Here for her f/u apt she is doing well, here with her OV 05/07/2023: Here for her f/u apt, she is doing very well, she did do the labs and is here with her OV 10/20/2023: ACV: L ear ache, since 2-3 days, no d/c from ear, feels a throbbing sensation, here with her Emiliano, wants to also get Xrays for intermittent R hip pain, none today, no acute or remote trauma OV 11/05/2023: Here for her f/u apt and MWV, is doing well, did do the labs, still has some intermittent R hip pain, here with her OV 03/24/2024: Here for her routine apt, she is here with her , she feels well OV 06/07/2024: Here to discuss weight loss management, she is doing well otherwise Sirisha Hawkins MD [address] [facility], [address], [place], [address], [place] [facility] [employer] 06/14/2024 14:20:15 06/14/2024 text/html Here to edis Henry PMD: Dr Nelson, last apt on 12/26/17Past Hx:HTNHLDDepressionC OPDReviewed social family and surgical historyHere as she would like to get her medication refills and also get vesicareShe feels that she is doing well at this time OV 02/11/18:Here for her 2 week apt for a BP checkShe is here with her and feels that she is doing wellShe did do the labs OV 03/11/18:Here for her routine aptIs doing well, is here with her OV 05/07/18:Here as she is having some ear pain in theNo fevers or chillsNo N/VNo dizziness, no ear d/cAlso has noted a small 'herpes blister' on the chin, she states that this happens when she has an ear infection or any other infection OV 05/20/18:Here for her BP check and her ear infectionFeels that she is doing well at this time OV 06/10/18:Here for her routine aptShe has done labs on 06/09/18Has R knee pain since 3 monthsHas a hx of asthma OV 09/09/18:Here for her routine aptHere with her husbandLabs done on 09/07/18 OV 12/21/18:Here for her routine aptShe did do the labs and feels that she is doing OV 06/21/19:Here for her follow up aptShe feels wellShe did do the labs on 06/09/19 OV 01/17/2020:Here for her routine aptShe feels wellSfidel did do the labs OV 04/03/2020:ACV:Here with LBPLocated on the L lower lateral back, dull ache, 2/10 painNo N/T or weakness in the legsNo acute or remote traumaNo loss of bowel or bladder controlShe is here for her MWV also OV 07/17/2020:Here for her routine aptShe is doing very wellShe did do the labs and she is here with her OV 01/15/2021:Here for her routine aptShe is here with her husbandShe did do the labsShjaya has seen the PA for Dr Perdue for hand pain is s/p injections OV 07/16/2021:Here for her routine apt, with her husbandShe is doing wellIs to see Dr Perdue tomorrow OV 11/14/2021:Here for her routine aptShe is doing well, but feels that the metoprolol is still making her dizzyShe did do the labs and is wondering about her TSH and FT4 and thyroid medicine doseShe is here with Emiliano OV 03/25/2022:Here for her f/u apt, she is doing well, here with her OV 12/04/2022: Here for her f/u apt she is doing well, here with her OV 05/07/2023: Here for her f/u apt, she is doing very well, she did do the labs and is here with her OV 10/20/2023: ACV: L ear ache, since 2-3 days, no d/c from ear, feels a throbbing sensation, here with her Emiliano, wants to also get Xrays for intermittent R hip pain, none today, no acute or remote trauma OV 11/05/2023: Here for her f/u apt and MWV, is doing well, did do the labs, still has some intermittent R hip pain, here with her OV 03/24/2024: Here for her routine apt, she is here with her , she feels well OV 06/07/2024: Here to discuss weight loss management, she is doing well otherwiseOV 06/14/2024: Here for weight loss management, her insurance did not approve the GLP-1 Sirisha Hawkins MD [address] [facility], [facility] [address], [place], [address], [facility] [employer] 06/14/2024 16:37:58 07/06/2024 text/html Here to edis Henry PMD: Dr Nelson, last apt on 12/26/17Pa Hx:HTNHLDDepressionC OPDReviewed social family and surgical historyHere as she would like to get her medication refills and also get vesicareShe feels that she is doing well at this time OV 02/11/18:Here for her 2 week apt for a BP checkShe is here with her and feels that she is doing wellShe did do the labs OV 03/11/18:Here for her routine aptIs doing well, is here with her OV 05/07/18:Here as she is having some ear pain in theNo fevers or chillsNo N/VNo dizziness, no ear d/cAlso has noted a small 'herpes blister' on the chin, she states that this happens when she has an ear infection or any other infection OV 05/20/18:Here for her BP check and her ear infectionFeels that she is doing well at this time OV 06/10/18:Here for her routine aptShe has done labs on 06/09/18Has R knee pain since 3 monthsHas a hx of asthma OV 09/09/18:Here for her routine aptHere with her husbandLabs done on 09/07/18 OV 12/21/18:Here for her routine aptShe did do the labs and feels that she is doing OV 06/21/19:Here for her follow up aptShe feels wellShe did do the labs on 06/09/19 OV 01/17/2020:Here for her routine aptShe feels wellShe did do the labs OV 04/03/2020:ACV:Here with LBPLocated on the L lower lateral back, dull ache, 2/10 painNo N/T or weakness in the legsNo acute or remote traumaNo loss of bowel or bladder controlShe is here for her MWV also OV 07/17/2020:Here for her routine aptShe is doing very wellShe did do the labs and she is here with her OV 01/15/2021:Here for her routine aptShe is here with her husbandShe did do the labsShe has seen the PA for Dr Perdue for hand pain is s/p injections OV 07/16/2021:Here for her routine apt, with her husbandShe is doing wellIs to see Dr Perdue tomorrow OV 11/14/2021:Here for her routine aptShe is doing well, but feels that the metoprolol is still making her dizzyShe did do the labs and is wondering about her TSH and FT4 and thyroid medicine doseShe is here with Emiliano OV 03/25/2022:Here for her f/u apt, she is doing well, here with her OV 12/04/2022: Here for her f/u apt she is doing well, here with her OV 05/07/2023: Here for her f/u apt, she is doing very well, she did do the labs and is here with her OV 10/20/2023: ACV: L ear ache, since 2-3 days, no d/c from ear, feels a throbbing sensation, here with her Emiliano, wants to also get Xrays for intermittent R hip pain, none today, no acute or remote trauma OV 11/05/2023: Here for her f/u apt and MWV, is doing well, did do the labs, still has some intermittent R hip pain, here with her OV 03/24/2024: Here for her routine apt, she is here with her , she feels well OV 06/07/2024: Here to discuss weight loss management, she is doing well otherwiseOV 06/14/2024: Here for weight loss management, her insurance did not approve the GLP-1 OV 07/06/2024: Here to discuss the use of the GLP-1, she is here with her , does well Sirisha Hawkins MD [address] [place] [address], [address], [place], [address], [facility] [employer] 07/23/2024 19:15:03 07/21/2024 text/html Here to edis Henry PMD: Dr Nelson, last apt on 12/26/17Past Hx:HTNHLDDepressionC OPDReviewed social family and surgical historyHere as she would like to get her medication refills and also get vesicareShe feels that she is doing well at this time OV 02/11/18:Here for her 2 week apt for a BP checkShe is here with her and feels that she is doing wellShe did do the labs OV 03/11/18:Here for her routine aptIs doing well, is here with her OV 05/07/18:Here as she is having some ear pain in theNo fevers or chillsNo N/VNo dizziness, no ear d/cAlso has noted a small 'herpes blister' on the chin, she states that this happens when she has an ear infection or any other infection OV 05/20/18:Here for her BP check and her ear infectionFeels that she is doing well at this time OV 06/10/18:Here for her routine aptShe has done labs on 06/09/18Has R knee pain since 3 monthsHas a hx of asthma OV 09/09/18:Here for her routine aptHere with her husbandLabs done on 09/07/18 OV 12/21/18:Here for her routine aptShe did do the labs and feels that she is doing OV 06/21/19:Here for her follow up aptShe feels wellShe did do the labs on 06/09/19 OV 01/17/2020:Here for her routine aptShe feels wellShe did do the labs OV 04/03/2020:ACV:Here with LBPLocated on the L lower lateral back, dull ache, 2/10 painNo N/T or weakness in the legsNo acute or remote traumaNo loss of bowel or bladder controlShe is here for her MWV also OV 07/17/2020:Here for her routine aptShe is doing very wellShe did do the labs and she is here with her OV 01/15/2021:Here for her routine aptShe is here with her husbandShe did do the labsShe has seen the PA for Dr Perdue for hand pain is s/p injections OV 07/16/2021:Here for her routine apt, with her husbandShe is doing wellIs to see Dr Perdue tomorrow OV 11/14/2021:Here for her routine aptShe is doing well, but feels that the metoprolol is still making her dizzyShe did do the labs and is wondering about her TSH and FT4 and thyroid medicine doseShe is here with Emiliano OV 03/25/2022:Here for her f/u apt, she is doing well, here with her OV 12/04/2022: Here for her f/u apt she is doing well, here with her OV 05/07/2023: Here for her f/u apt, she is doing very well, she did do the labs and is here with her OV 10/20/2023: ACV: L ear ache, since 2-3 days, no d/c from ear, feels a throbbing sensation, here with her Emiliano, wants to also get Xrays for intermittent R hip pain, none today, no acute or remote trauma OV 11/05/2023: Here for her f/u apt and MWV, is doing well, did do the labs, still has some intermittent R hip pain, here with her OV 03/24/2024: Here for her routine apt, she is here with her , she feels well OV 06/07/2024: Here to discuss weight loss management, she is doing well otherwiseOV 06/14/2024: Here for weight loss management, her insurance did not approve the GLP-1OV 07/21/2024: Here for her f/u apt, she did do the labs, is doing well, here with her , is wanting to increase the dose for zepbound Sirisha Hawkins MD [address] [facility], [address], [place], [address], [place] [facility] 07/21/2024 10:08:56 OBGyn Episode No OBEpisode recorded.
== END 2024-09-20 09:31 | disposition home or self-care (01) ==
LOC: ANHIMG 09:32
PROVIDERS: PCP Internal Medicine; Visit Provider Obstetrics & Gynecology
DX: Z78.0 Asymptomatic menopausal state (principal)
CPT/HCPCS: 77080

== ENCOUNTER 2024-10-15 08:21 | Emergency (ER) | payer MEDICARE, OTHER, SELFPAY ==
--- NOTE | 2024-10-15 08:22 | ED.URI ---
HPI - URI/Sore Throat General Chief Complaint: Upper Respiratory Infection Stated Complaint: COUGH/SOB Time Seen by Provider: 10/15/24 08:22 Source: patient Mode of arrival: ambulatory Limitations: no limitations History of Present Illness HPI Narrative: Patient is a 69-year-old female who presents with dry cough this started yesterday after raking leaves. Patient also has runny nose that started today. Patient was sick 2 weeks ago and was given a zpak. Denies any fever, sore throat, nausea, no diarrhea. Reports having seasonal allergies but does not take allergy medication daily. Has been using inhaler Related Data Home Medications ?Medication ?Instructions ?Recorded ?Confirmed ?Last Taken ?Type albuterol sulfate 90 mcg/actuation 1 inhalation inhalation Q4H PRN 09/13/19 10/15/24 05/22/23 History aerosol inhaler (ProAir HFA) Shortness Of Breath aspirin 81 mg tablet,delayed 81 mg PO DAILY 09/13/19 10/15/24 05/22/23 History release (Adult Aspirin Regimen) atorvastatin 20 mg tablet 20 mg PO DAILY 09/13/19 10/15/24 05/22/23 History cholecalciferol (vitamin D3) 25 25 mcg PO DAILY 09/13/19 10/15/24 05/22/23 History mcg (1,000 unit) capsule paroxetine HCl 10 mg tablet 10 mg PO DAILY 09/13/19 10/15/24 05/22/23 History salmeterol 50 mcg/dose blister 1 inhalation inhalation Q12H 09/13/19 10/15/24 05/22/23 History powder for inhalation (Serevent Diskus) calcium carbonate (Calcium 600) 600 mg PO BID 05/13/23 10/15/24 05/22/23 History hydrochlorothiazide 25 mg tablet 25 mg PO DAILY 05/13/23 10/15/24 05/22/23 History levothyroxine 75 mcg tablet 75 mcg PO DAILY 05/13/23 10/15/24 05/23/23 History losartan 50 mg tablet 50 mg PO DAILY 05/13/23 10/15/24 05/22/23 History multivitamin with minerals-folic 1 tablet PO DAILY 05/13/23 10/15/24 05/22/23 History acid 0.4 mg tablet solifenacin 5 mg tablet 5 mg PO DAILY 05/13/23 10/15/24 05/22/23 History tirzepatide (weight loss) 5 mg/0.5 5 mg subcut WEEKLY 10/15/24 10/15/24 Unknown History mL subcutaneous pen injector (Zepbound) Allergies Allergy/AdvReac Type Severity Reaction Status Date / Time No Known Allergies Allergy Verified 10/15/24 08:32 Review of Systems Review of Systems: All systems reviewed & are unremarkable except as noted in HPI and below Constitutional: Constitutional: Denies chills, Denies fatigue, Denies fever(s), Denies headache(s), Denies malaise and Denies weakness Eyes: Eyes: Denies blurry vision, Denies itchy eyes and Denies loss of vision ENT: Denies otalgia, Denies headache(s), Denies nasal congestion, Reports nasal discharge, Denies sinus pain and Denies sore throat Cardiovascular: Cardiovascular: Denies chest pain, Denies irregular heart rhythm and Denies dyspnea Respiratory: Respiratory: Reports cough and Denies dyspnea Gastrointestinal: Gastrointestinal: Denies abdominal pain, Denies diarrhea, Denies nausea and Denies vomiting Musculoskeletal: Musculoskeletal: Denies back pain, Denies myalgias and Denies arthralgias Integumentary/Breasts: Skin/Breast: Denies pruritus and Denies rash Neurologic: Denies headache(s), Denies loss of vision and Denies weakness Psychiatric: Psychiatric: Reports no additional psychiatric complaints Endocrine: Endocrine: Denies fatigue Allergic/Immunologic: Allergic/Immunologic: Denies itchy eyes PMFSH Past Medical History Medical History Dyslipidemia Obesity Back pain Hypertension Asthma History of vaginal delivery x2 Surgical History Surgical History History of carpal tunnel surgery of right wrist History of total hysterectomy History of tubal ligation Family History Family History Father Hypertension Mother Hypertension Cerebrovascular accident Sibling Carcinoma of colon Social History Social History Smoking status: Never smoker Alcohol intake: never Substance use type: does not use Do You Feel Safe in your Home?: Yes Lack of Transportation: No Lack of Food: Never True Current Housing: I Have Housing Concerned About Future Housing: No Difficulty Paying Gas/Electric Bills: No Difficulty Paying for Meds: No Currently Unemployed: No Education: Master's Degree or Higher Difficulty w/ Childcare or Family Care: No Living arrangements: with friend(s) Spiritual care concerns: No Comments At time of signature, agree with nursing past medical, surgical, social and family history. There is no relevant family history pertinent to the presenting complaint. Exam Const: General: cooperative, healthy appearing, comfortable, no acute distress and well nourished Nutritional Appearance: well nourished Orientation/consciousness: patient oriented x3 Limitations: no limitations HENMT: Head: normal to inspection, normocephalic and atraumatic Ears: hearing grossly normal bilaterally, external ears normal, TM's normal bilaterally, EAC's normal and no periauricular adenopathy Face/Nose/Sinus: Normal external nose present, Abnormal mucous membranes and turbinates present erythematous bilateral and diffuse, normal facial exam, sinuses nontender and face symmetric Face and sinus: normal facial exam, sinuses nontender and face symmetric Mouth: Yes Normal oral and palatal mucosa present, Yes lip normal, Yes tongue normal, Yes Normal salivary glands and ducts present, Yes oropharynx normal and Yes moist mucous membranes Teeth and gingiva: dentition normal Throat: posterior oropharynx normal, tonsils normal and uvula midline Eyes: General: appearance normal, both eyes and all related structures Alignment and Position: alignment normal and position normal Periorbital: periorbital findings normal Eyelids: eyelids normal Pupils: Equal, round and reactive pupils present Neck: Neck: normal visual inspection, full ROM, no lymphadenopathy and supple Chest: Chest palpation & inspection: normal inspection of the chest and normal palpation of entire chest wall Resp: Effort & Inspection: normal respiratory effort, able to speak in complete sentences and Actively coughing dry Auscultation: clear to auscultation bilaterally, no crackles, no rales, no rhonchi and no wheezes Cardio: Rate: regular rate Rhythm: regular rhythm Heart sounds: S1 normal heart sound present and S2 normal heart sound present GI: Inspection: normal to inspection Skin: General skin exam: normal color and no rashes or lesions noted Neuro: General: patient oriented x3 and moves all extremities Cranial nerves: Yes Equal, round and reactive pupils present Speech: normal speech Gait exam (Neuro): Normal gait present Extrem: General: normal to inspection, full ROM and no edema Psych: Appearance: grossly normal and well kempt Mental Status: mental status grossly normal Speech and movement: Normal speech and movement present Affect: normal affect Attitude: cooperative Thought process: Normal thought process present Course Course Emergency Course: Discharge instructions reviewed with patient, as well as provided in writing per nursing staff. The instructions also include specific and strict return/GO TO THE ER as well as f/u information. All questions have been answered, and the patient deny any further questions with discharge and discharge plan. Portions of this record may have been created with voice recognition software Level of Care: Express Care Visit Vital Signs Vital signs: Vital Signs Temperature 36.9 C 10/15/24 08:36 Pulse Rate 91 10/15/24 08:36 Respiratory Rate 16 10/15/24 08:36 Blood Pressure 130/69 10/15/24 08:36 Pulse Oximetry 99 10/15/24 08:36 Temperature 36.9 C 10/15/24 08:36 Pulse Rate 91 10/15/24 08:36 Respiratory Rate 16 10/15/24 08:36 Blood Pressure 130/69 10/15/24 08:36 Pulse Oximetry 99 10/15/24 08:36 Reviewed MDM - URI/Sore Throat MDM Narrative Medical decision making narrative: Pt well hydrated appearing, in no respiratory distress, hemodynamically stable. Recommend supportive care. The patient is stable at time of discharge the clinical impression was discussed and the patient was given the opportunity to ask questions, which were addressed as completely as possible given the information available at present. Anticipatory guidance and return to care precautions were discussed and the importance of primary care follow-up was stressed and encouraged. The patient voiced understanding of the plan, indications to return, and the need for follow-up. Differential diagnosis considered: Bronchitis, Mcfarland virus, strep pharyngitis, allergic rhinitis, upper respiratory tract infection, sinusitis, rhinosinusitis, nasopharyngitis. viral pharyngitis, otitis media, otitis externa, otitis effusion, foreign body, cerumen impaction, viral syndrome, and influenza.? Exam findings show no acute concerns or changes; patient is non-toxic appearing and is in no distress.? Patient is appropriate for outpatient treatment and follow-up.? Medical Records Attestation: I reviewed the patient's medical records. Discharge Plan Discharge Clinical Impression: Acute seasonal allergic rhinitis Cough Qualifiers: Cough type: acute Qualified Code(s): R05.1 - Acute cough Patient Disposition: Home, Self-Care Condition: Stable Instructions: Acute Cough (ED) Additional Instructions: Your symptoms are likely due to a viral illness, which is not treated with antibiotics. Viral symptoms can be present for up to a few weeks. -For pain/fever, you may take: Tylenol 650-1000mg by mouth every 4-6 hours. Do not exceed 4000mg in 24 hours. Advil (Ibuprofen) 600 mg by mouth every 6 hours. Do not exceed 2400mg in 24 hours. 8 AM: Tylenol 11 AM: Ibuprofen 2 PM: Tylenol 5 PM: Ibuprofen 8 PM: Tylenol 11 PM: Ibuprofen 2 AM: Tylenol 5 AM: Ibuprofen -Antihistamine medication such as Benadryl/Zyrtec at night and Claritin/Pamela during the day can help improve symptoms. -Use Flonase twice a day for 5 days then daily to help reduce the inflammation and dry up your sinuses. -You can also use Sudafed behind the pharmacy counter(12 or 24 hour). Be sure to drink plenty of water with these medications at least 8 ounces with every dose and it is important to drink 8 to 10 glasses of water per day. Water is a natural decongestant -Eat and drink things that are easy to swallow, like tea or soup, or popsicles. -Oral rinses such as: Salt water gargles and/or may use topical anesthetic (eg. Chloraseptic spray) or lozenges to relieve dryness or throat pain). -Frequent hand washing or hand mobile patrol officer is one of the best ways to prevent spread of infection. -Using a vaporizer or humidifier at night will also help thin secretions and help with coughing up phlegm. Call your Primary Care Doctor and make a follow-up appointment in 3 days. If your cough worsens, you develop a fever greater than 103, you develop shaking chills, a fast heartbeat, trouble breathing and/or feel you are are breathing much faster than usual, call your Primary Care Doctor or go to the ER. Patient Language: Israeli Prescriptions: New fluticasone propionate [Flonase Allergy Relief] 50 mcg/actuation spray,suspension 1 spray intranasal DAILY Qty: 16 0RF Rx Instructions: administer into each nostril No Action Zepbound 5 mg/0.5 mL pen injector 5 mg SUBCUT WEEKLY aspirin [Adult Aspirin Regimen] 81 mg tablet,delayed release (DR/EC) 81 mg PO DAILY atorvastatin 20 mg tablet 20 mg PO DAILY paroxetine HCl 10 mg tablet 10 mg PO DAILY albuterol sulfate [ProAir HFA] 90 mcg/actuation HFA aerosol inhaler 1 inhalation INHALATION Q4H PRN (Reason: Shortness Of Breath) Serevent Diskus 50 mcg/dose blister with device 1 inhalation INHALATION Q12H cholecalciferol (vitamin D3) 25 mcg (1,000 unit) capsule 25 mcg PO DAILY losartan 50 mg tablet 50 mg PO DAILY levothyroxine 75 mcg tablet 75 mcg PO DAILY hydrochlorothiazide 25 mg tablet 25 mg PO DAILY solifenacin 5 mg tablet 5 mg PO DAILY calcium carbonate [Calcium 600] 600 mg calcium (1,500 mg) Tablet 600 mg PO BID multivit with min-folic acid 0.4 mg Tablet 1 tablet PO DAILY pantoprazole 40 mg tablet,delayed release (DR/EC) 40 mg PO QAM Qty: 30 5RF Follow-up/Referrals: Shruthi,MD Kehinde [Primary Care Provider] - 3 Days Time of Disposition: 09:18
[2024-10-15 08:36] VITALS: BP 130/69; PULSE 91; RESP 16; TEMP 36.9; O2SAT 99
== END 2024-10-15 09:21 | disposition home or self-care (01) ==
PROVIDERS: Emergency Provider Nurse Practitioner Family; PCP Internal Medicine
DX: J30.9 Allergic rhinitis, unspecified (principal); R05.1 Acute cough; E78.5 Hyperlipidemia, unspecified; I10 Essential (primary) hypertension; J45.909 Unspecified asthma, uncomplicated; E66.9 Obesity, unspecified; Z79.82 Long term (current) use of aspirin
CPT/HCPCS: 99213; G0463

== ENCOUNTER 2025-04-25 13:38 | Inpatient (IN) | payer MEDICARE, OTHER, SELFPAY ==
--- NOTE | ~2025-04-25 | CT_ITS ---
EXAMINATION: CT abdomen pelvis w con DATE: 04/25/2025 17:32 INDICATION: Lower abdomen pain. TECHNIQUE: Computed tomography (CT) of the abdomen and pelvis was performed with intravenous contrast. The dose-length product was 464.15 mGy-cm. COMPARISON: None. FINDINGS: Lung bases unremarkable. Heart size normal. No significant pleural or pericardial effusion. There is abnormal thickening of the left colon, most significant in the descending colon and rectum, consistent with colitis, most likely infectious/inflammatory. No significant vascular abnormality. No lymphadenopathy. No free air. No lymphadenopathy. Fatty infiltration of the liver. Gallbladder is present. The spleen, pancreas, adrenal glands and kidneys are unremarkable. No focal lytic or blastic lesions. There is disc narrowing and endplate degenerative change at L4-5. No acute osseous abnormality. IMPRESSION: 1. Extensive mucosal thickening of the colon, most severe in the descending colon, consistent with colitis, most likely infectious or inflammatory. Reviewed, dictated and finalized at location O. IMPRESSION: 1. Extensive mucosal thickening of the colon, most severe in the descending col on, consistent with colitis, most likely infectious or inflammatory.
[2025-04-25 14:16] VITALS: BP 163/94; PULSE 95; RESP 18; TEMP 36.6; O2SAT 99
--- NOTE | 2025-04-25 16:00 | ED.GIBLEED ---
HPI - GI Bleed General Chief complaint: GI Bleed <NJ Mora Last Filed: 04/25/25 16:09> Stated complaint: Blood in stool <NJ Mora Last Filed: 04/25/25 16:09> Time Seen by Provider: 04/25/25 16:00 <NJ Mora Last Filed: 04/25/25 16:09> Focused HPI: Patient is a 70 y/o female who presents to the ED with c/o rectal bleeding. Patient reports she began having pain and bloating throughout her lower abdomen last night. Described as cramping. Thought she may have been constipated, but continued to have cramping in her abdomen this morning. Began having multiple BMs today. States her stool was initially formed/solid, became more soft, then became watery and mixed with bright red blood. Now more so only passing bright red blood. Reports nausea, lightheadedness. Denies vomiting, fevers, urinary complaints. Patient takes ASA 81 mg, no other anticoagulation. Denies hx of similar sx's, no hx of diverticulitis. GENERAL: Well-appearing, well-nourished, and in no acute distress. HEAD: Normocephalic, atraumatic. CHEST: Clear to auscultation. ?No respiratory distress. HEART: Regular rate and rhythm.? ABD: Mild diffuse tenderness in lower abdomen. Normoactive BS NEURO: ?Alert and oriented x3. Patient screened in triage and initial orders placed.? ?Additional care and disposition to be based upon?diagnostic testing and treatment. <NJ Mora Last Filed: 04/25/25 16:09> Source: patient <NJ Mora Last Filed: 04/25/25 16:09> Mode of arrival: ambulatory <NJ Mora Last Filed: 04/25/25 16:09> Limitations: no limitations <NJ Mora Last Filed: 04/25/25 16:09> History of Present Illness HPI Narrative: Patient 70-year-old female who presents emergency department with chief complaint of rectal bleeding. The patient reports she started having pain and bloating her abdomen last night patient reports she started having normal bowel movements and then started having bright red blood per rectum reports he has had multiple episodes of bright red blood patient reports felt a little nauseated and reports that she has also felt lightheaded <Anibal Gonzales MD - Last Filed: 04/25/25 21:08> Related Data Home medications: Home Medications ?Medication ?Instructions ?Recorded ?Confirmed ?Last Taken ?Type albuterol sulfate 90 mcg/actuation 1 inhalation inhalation Q4H PRN 09/13/19 10/15/24 05/22/23 History aerosol inhaler (ProAir HFA) Shortness Of Breath aspirin 81 mg tablet,delayed 81 mg PO DAILY 09/13/19 10/15/24 05/22/23 History release (Adult Aspirin Regimen) atorvastatin 20 mg tablet 20 mg PO DAILY 09/13/19 10/15/24 05/22/23 History cholecalciferol (vitamin D3) 25 25 mcg PO DAILY 09/13/19 10/15/24 05/22/23 History mcg (1,000 unit) capsule paroxetine HCl 10 mg tablet 10 mg PO DAILY 09/13/19 10/15/24 05/22/23 History salmeterol 50 mcg/dose blister 1 inhalation inhalation Q12H 09/13/19 10/15/24 05/22/23 History powder for inhalation (Serevent Diskus) calcium carbonate (Calcium 600) 600 mg PO BID 05/13/23 10/15/24 05/22/23 History hydrochlorothiazide 25 mg tablet 25 mg PO DAILY 05/13/23 10/15/24 05/22/23 History levothyroxine 75 mcg tablet 75 mcg PO DAILY 05/13/23 10/15/24 05/23/23 History losartan 50 mg tablet 50 mg PO DAILY 05/13/23 10/15/24 05/22/23 History multivitamin with minerals-folic 1 tablet PO DAILY 05/13/23 10/15/24 05/22/23 History acid 0.4 mg tablet solifenacin 5 mg tablet 5 mg PO DAILY 05/13/23 10/15/24 05/22/23 History tirzepatide (weight loss) 5 mg/0.5 5 mg subcut WEEKLY 10/15/24 10/15/24 Unknown History mL subcutaneous pen injector (Zepbound) <Patricia Tatum PA-C - Last Filed: 04/25/25 16:09> Allergies/Adverse reactions: Allergies Allergy/AdvReac Type Severity Reaction Status Date / Time No Known Allergies Allergy Verified 04/25/25 13:39 <Patricia Tatum PA-C - Last Filed: 04/25/25 16:09> Review of Systems Review of Systems: A 10 system review of systems was completed on the patient and is negative except for what is stated in the HPI. Nursing and ancillary documentation was reviewed. <Anibal Gonzales MD - Last Filed: 04/25/25 21:08> [facility] Past Medical History Medical History: Medical History Dyslipidemia Obesity Back pain Hypertension Asthma History of vaginal delivery x2 <Patricia Tatum PA-C - Last Filed: 04/25/25 16:09> Surgical History Surgical History: Surgical History History of carpal tunnel surgery of right wrist History of total hysterectomy History of tubal ligation <Patricia Tatum PA-C - Last Filed: 04/25/25 16:09> Family History Family History: Family History Father Hypertension Mother Hypertension Cerebrovascular accident Sibling Carcinoma of colon <Patricia Tatum PA-C - Last Filed: 04/25/25 16:09> Social History Social History: Social History Smoking status: Never smoker Alcohol intake: never Substance use type: does not use Do You Feel Safe in your Home?: Yes Lack of Transportation: No Lack of Food: Never True Current Housing: I Have Housing Concerned About Future Housing: No Difficulty Paying Gas/Electric Bills: No Difficulty Paying for Meds: No Currently Unemployed: No Education: Master's Degree or Higher Difficulty w/ Childcare or Family Care: No Living arrangements: with friend(s) Spiritual care concerns: No <Patricia Tatum PA-C - Last Filed: 04/25/25 16:09> Exam Narrative: GENERAL: Well-appearing, well-nourished, and in no acute distress. HEAD: Normocephalic, atraumatic. EYES: PERRLA and EOMI. ENT: Nares clear, no rhinorrhea or epistaxis. Mucous membranes moist. NECK: Supple. CHEST: Clear to auscultation. No respiratory distress. HEART: Regular rate and rhythm. No murmur heard. Normal peripheral pulses. ABDOMEN: Soft, tenderness to palpation left lower quadrant, nondistended, normal active bowel sounds. EXTREMITIES: Normal range of motion. No edema. SKIN: Warm, dry, no rash. NEURO: No focal deficits. Alert and oriented x3. PSYCH: Normal mood and affect. <Anibal Gonzales MD - Last Filed: 04/25/25 21:08> Course Vital Signs Vital signs: Vital Signs Temperature 36.6 C 04/25/25 14:16 Pulse Rate 95 04/25/25 14:16 Respiratory Rate 18 04/25/25 14:16 Blood Pressure 163/94 H 04/25/25 14:16 Pulse Oximetry 99 04/25/25 14:16 Oxygen Delivery Room Air 04/25/25 14:16 Temperature 36.6 C 04/25/25 14:16 Pulse Rate 95 04/25/25 14:16 Respiratory Rate 18 04/25/25 14:16 Blood Pressure 163/94 H 04/25/25 14:16 Pulse Oximetry 99 04/25/25 14:16 Oxygen Delivery Room Air 04/25/25 14:16 <Patricia Tatum PA-C - Last Filed: 04/25/25 16:09> Vital Signs Temperature 36.6 C 04/25/25 14:16 Pulse Rate 95 04/25/25 14:16 Respiratory Rate 18 04/25/25 14:16 Blood Pressure 163/94 H 04/25/25 14:16 Pulse Oximetry 99 04/25/25 14:16 Oxygen Delivery Room Air 04/25/25 14:16 Temperature 36.6 C 04/25/25 14:16 Pulse Rate 95 04/25/25 14:16 Respiratory Rate 18 04/25/25 14:16 Blood Pressure 163/94 H 04/25/25 14:16 Pulse Oximetry 99 04/25/25 14:16 Oxygen Delivery Room Air 04/25/25 14:16 <Anibal Gonzales MD - Last Filed: 04/25/25 21:08> MDM - GI Bleed MDM Narrative Medical decision making narrative: MSE by JOSIAS in triage. <Patricia Tatum PA-C - Last Filed: 04/25/25 16:09> MSE by JOSIAS in triage. Differential diagnosis includes colitis, diverticulitis, GI bleed, Laboratory studies were obtained on the patient showed a normal white blood cell count 8.7 hemoglobin was 13.7 patient is on aspirin but not on any other anticoagulant urinalysis showed no evidence UTI CT scan of the abdomen pelvis showed IMPRESSION: 1. Extensive mucosal thickening of the colon, most severe in the descending colon, consistent with colitis, most likely infectious or inflammatory Patient was started on ceftriaxone and Flagyl the case was discussed with the hospitalist the patient for observation <Anibal Gonzales MD - Last Filed: 04/25/25 21:08> Lab Data Result diagrams: 04/25/25 16:59 04/25/25 16:59 <Patricia Tatum PA-C - Last Filed: 04/25/25 16:09> Labs: Lab Results 04/25/25 Range/Units 16:59 WBC 8.7 (4.5-10.0) K/mm3 RBC 4.58 (4.2-5.4) M/mm3 Hgb 13.7 (12.0-15.0) g/dL Hct 43.1 (37.0-47.0) % MCV 94.1 (80-100) fl MCH 29.9 (26-34) pg MCHC 31.8 L (32-36) g/dl RDW 13.0 (11.5-14.5) % Plt Count 283 (150-375) k/mm3 MPV 9.8 (7.4-10.4) fl Immature Gran % (Auto) 0.2 (0-0.5) % Neut % (Auto) 55.9 (45.5-73.1) % Lymph % (Auto) 32.9 (18.3-44.2) % [place] % (Auto) 7.2 (2.6-8.5) % Eos % (Auto) 3.3 (0-4.4) % Baso % (Auto) 0.5 (0.2-1.2) % Lymph # (Auto) 2.87 (0.9-3.2) K/mm3 [place] # (Auto) 0.6 (0.1-0.6) K/mm3 Eos # (Auto) 0.3 (0-0.3) K/mm3 Baso # (Auto) 0.0 (0.0-0.1) K/mm3 Abs Immat Gran (auto) 0.02 (0.00-0.031) K/mm3 Absolute Neuts (auto) 4.9 (1.3-6.7) K/mm3 Absolute Nucleated RBC 0.000 (0.0-0.012) K/mm3 Nucleated RBC % 0.0 (0.0-0.2) % PT 13.8 (11.1-14.7) Seconds INR 1.0 APTT 28.7 (22.3-36.8) Seconds Sodium 139 (137-145) mmol/L Potassium 3.4 (3.4-5.0) mmol/L Chloride 103 (98-107) mmol/L Carbon Dioxide 27 (22-30) mmol/L Anion Gap 9 (4-12) mmol/L BUN 9 D (7-17) mg/dL Creatinine 0.68 L (0.7-1.0) mg/dL Estim Creat Clear Calc 64 ml/min Estimated GFR > 60 (59 - ) Glucose 80 (65-110) mg/dL Lactic Acid 1.3 (0.7-2.0) mmol/L Calcium 9.3 (8.4-10.2) mg/dL Total Bilirubin 0.5 (0.2-1.3) mg/dL AST 24 (14-36) U/L ALT 15 (6-35) U/L Alkaline Phosphatase 71 (38-126) U/L Total Protein 8.7 H (6.3-8.2) g/dL Albumin 4.6 (3.5-5.1) g/dL Urine Color Yellow (Yellow) Urine Appearance Clear (Clear) Urine pH 6.5 (5.0-9.0) Ur Specific [place] 1.006 (1.001-1.035) Urine Protein Negative (Negative) mg/dL Urine Glucose (UA) Negative (Negative) mg/dL Urine Ketones Negative (Negative) mg/dL Ur Blood (Man) Trace (Negative) Urine Nitrate Negative (Negative) Urine Bilirubin Negative (Negative) Urine Urobilinogen 0.2 (<2.0) mg/dL Leukocyte Esterase Rfl Trace H (Negative) LILIAN/UL Urine RBC 3-5 H (0-2) /hpf Urine WBC 0-5 (0-3) /hpf Ur Squamous Epith Cells None seen (Few) /hpf Urine Bacteria None seen /hpf Urine Casts 0-2 Blood Type B Positive Antibody Screen Negative <Patricia Tatum PA-C - Last Filed: 04/25/25 16:09> Lab Results 04/25/25 Range/Units 16:59 WBC 8.7 (4.5-10.0) K/mm3 RBC 4.58 (4.2-5.4) M/mm3 Hgb 13.7 (12.0-15.0) g/dL Hct 43.1 (37.0-47.0) % MCV 94.1 (80-100) fl MCH 29.9 (26-34) pg MCHC 31.8 L (32-36) g/dl RDW 13.0 (11.5-14.5) % Plt Count 283 (150-375) k/mm3 MPV 9.8 (7.4-10.4) fl Immature Gran % (Auto) 0.2 (0-0.5) % Neut % (Auto) 55.9 (45.5-73.1) % Lymph % (Auto) 32.9 (18.3-44.2) % [place] % (Auto) 7.2 (2.6-8.5) % Eos % (Auto) 3.3 (0-4.4) % Baso % (Auto) 0.5 (0.2-1.2) % Lymph # (Auto) 2.87 (0.9-3.2) K/mm3 [place] # (Auto) 0.6 (0.1-0.6) K/mm3 Eos # (Auto) 0.3 (0-0.3) K/mm3 Baso # (Auto) 0.0 (0.0-0.1) K/mm3 Abs Immat Gran (auto) 0.02 (0.00-0.031) K/mm3 Absolute Neuts (auto) 4.9 (1.3-6.7) K/mm3 Absolute Nucleated RBC 0.000 (0.0-0.012) K/mm3 Nucleated RBC % 0.0 (0.0-0.2) % PT 13.8 (11.1-14.7) Seconds INR 1.0 APTT 28.7 (22.3-36.8) Seconds Sodium 139 (137-145) mmol/L Potassium 3.4 (3.4-5.0) mmol/L Chloride 103 (98-107) mmol/L Carbon Dioxide 27 (22-30) mmol/L Anion Gap 9 (4-12) mmol/L BUN 9 D (7-17) mg/dL Creatinine 0.68 L (0.7-1.0) mg/dL Estim Creat Clear Calc 64 ml/min Estimated GFR > 60 (59 - ) Glucose 80 (65-110) mg/dL Lactic Acid 1.3 (0.7-2.0) mmol/L Calcium 9.3 (8.4-10.2) mg/dL Total Bilirubin 0.5 (0.2-1.3) mg/dL AST 24 (14-36) U/L ALT 15 (6-35) U/L Alkaline Phosphatase 71 (38-126) U/L Total Protein 8.7 H (6.3-8.2) g/dL Albumin 4.6 (3.5-5.1) g/dL Urine Color Yellow (Yellow) Urine Appearance Clear (Clear) Urine pH 6.5 (5.0-9.0) Ur Specific [place] 1.006 (1.001-1.035) Urine Protein Negative (Negative) mg/dL Urine Glucose (UA) Negative (Negative) mg/dL Urine Ketones Negative (Negative) mg/dL Ur Blood (Man) Trace (Negative) Urine Nitrate Negative (Negative) Urine Bilirubin Negative (Negative) Urine Urobilinogen 0.2 (<2.0) mg/dL Leukocyte Esterase Rfl Trace H (Negative) LILIAN/UL Urine RBC 3-5 H (0-2) /hpf Urine WBC 0-5 (0-3) /hpf Ur Squamous Epith Cells None seen (Few) /hpf Urine Bacteria None seen /hpf Urine Casts 0-2 Blood Type B Positive Antibody Screen Negative <Anibal Gonzales MD - Last Filed: 04/25/25 21:08> Discharge Plan Discharge Clinical Impression: Colitis, GI bleed <Patricia Tatum PA-C - Last Filed: 04/25/25 16:09> Patient Disposition: Still a Patient <Patricia Tatum PA-C - Last Filed: 04/25/25 16:09> Condition: Stable <Patricia Tatum PA-C - Last Filed: 04/25/25 16:09>
[2025-04-25 17:09] LABS: Hematocrit 43.1 % (37.0-47.0); Hemoglobin 13.7 g/dL (12.0-15.0); Immature Granulocyte Percent A 0.2 % (0-0.5); Lymphocytes Absolute Auto 2.87 K/mm3 (0.9-3.2); Mean Corpuscular HGB Conc 31.8 g/dl (32-36); Mean Corpuscular Hemoglobin 29.9 pg (26-34); Mean Corpuscular Volume 94.1 fl (80-100); Nucleated Red Blood Cells Absolute Auto 0.000 K/mm3 (0.0-0.012); Nucleated Red Blood Cells Perc 0.0 % (0.0-0.2); Platelet Count Result 283 k/mm3 (150-375); Red Blood Count 4.58 M/mm3 (4.2-5.4); White Blood Count 8.7 K/mm3 (4.5-10.0)
[2025-04-25 17:16] LABS: Add Urine Microscopic? YES; Appearance Urine Clear (Clear); Glucose Urine UA Negative (Negative); Leukocyte Esterase Ur Trace LEU/UL (Negative); Nitrate Urine Negative (Negative); Non Pathogenic Casts 0-2; Specific Grav Ur 1.006 (1.001-1.035)
[2025-04-25 17:18] LABS: INR 1.0; Prothrombin Time 13.8 Seconds (11.1-14.7)
[2025-04-25 17:19] LABS: Partial Thromboplastin Time 28.7 Seconds (22.3-36.8)
[2025-04-25 17:20] LABS: Alanine Aminotransferase 15 U/L (6-35); Albumin Level 4.6 g/dL (3.5-5.1); Alkaline Phosphatase 71 U/L (38-126); Anion Gap 9 mmol/L (4-12); Aspartate Amino Transferase 24 U/L (14-36); Bilirubin,Total 0.5 mg/dL (0.2-1.3); Blood Urea Nitrogen 9 mg/dL (7-17); Calcium 9.3 mg/dL (8.4-10.2); Carbon Dioxide 27 mmol/L (22-30); Chloride 103 mmol/L (98-107); Estimated CRCL calculation 64 ml/min; Estimated Glomerular Filt Rate > 60; Glucose 80 mg/dL (65-110); Potassium 3.4 mmol/L (3.4-5.0); Sodium 139 mmol/L (137-145); Total Protein 8.7 g/dL (6.3-8.2)
[2025-04-25] MEDS: cefTRIAXone 1 GM in SODIUM CHLORIDE 0.9% IV 50 ML 100 ML IVPB (20:04)
--- NOTE | 2025-04-25 20:05 | PM.IMHP ---
H&P: HPI History of Present Illness Date/Time: 04/25/25 20:05 Chief Complaint: Blood per rectum Narrative: A 70-year-old female presented to [facility] 04/25/2025 with multiple bloody bowel movements. Her symptoms 1st started on the day prior with left lower quadrant pain. Today she began to have diarrhea and then it progressed to bloody diarrhea, and is now just blood per rectum. No clots. Patient denies fever, recent travel, incarceration, sick contacts, recent surgery, recent antibiotic use. She has been generally healthy. She has a history of hypothyroidism, hypertension, asthma. She never had abdominal surgeries except hysterectomy. She reports she had a colonoscopy 2-[address] Martel before he retired. She was told to come back in 5 years, no abnormal findings. Does not know of family that has inflammatory bowel disease. Blood pressure in ER 163/94, otherwise vitals within normal limits. WBC 8700, hemoglobin 13.7, she reports she has not eaten or drank anything since the morning. Platelet count 283, INR 1.0, PTT 28.7, BUN 9, serum creatinine 0.68, sodium 139. Urinalysis with trace leukocyte esterase only. CT abdomen pelvis with contrast demonstrates extensive mucosal thickening of the colon most severe in descending colon consistent with colitis. I reviewed this as well. She was given ceftriaxone 1 g, metronidazole 500 mg, start on normal saline at 125 cc/hour. Review of Systems Review of Systems: All systems reviewed & are unremarkable except as noted in HPI and below (Subjective) PMFSH Past Medical History Medical History Dyslipidemia Obesity Back pain Hypertension Asthma History of vaginal delivery x2 Surgical History Surgical History History of carpal tunnel surgery of right wrist History of total hysterectomy History of tubal ligation Family History Family History Father Hypertension Mother Hypertension Cerebrovascular accident Sibling Carcinoma of colon Social History Social History Smoking status: Never smoker Alcohol intake: never Substance use type: does not use Do You Feel Safe in your Home?: Yes Lack of Transportation: No Lack of Food: Never True Current Housing: I Have Housing Concerned About Future Housing: No Difficulty Paying Gas/Electric Bills: No Difficulty Paying for Meds: No Currently Unemployed: No Education: Master's Degree or Higher Difficulty w/ Childcare or Family Care: No Living arrangements: with friend(s) Spiritual care concerns: No Meds Home Medications and Allergies Home Medications ?Medication ?Instructions ?Recorded ?Confirmed ?Type albuterol sulfate 90 mcg/actuation 1 inhalation inhalation Q4H PRN 09/13/19 10/15/24 History aerosol inhaler (ProAir HFA) Shortness Of Breath aspirin 81 mg tablet,delayed 81 mg PO DAILY 09/13/19 10/15/24 History release (Adult Aspirin Regimen) atorvastatin 20 mg tablet 20 mg PO DAILY 09/13/19 10/15/24 History cholecalciferol (vitamin D3) 25 25 mcg PO DAILY 09/13/19 10/15/24 History mcg (1,000 unit) capsule paroxetine HCl 10 mg tablet 10 mg PO DAILY 09/13/19 10/15/24 History salmeterol 50 mcg/dose blister 1 inhalation inhalation Q12H 09/13/19 10/15/24 History powder for inhalation (Serevent Diskus) calcium carbonate (Calcium 600) 600 mg PO BID 05/13/23 10/15/24 History hydrochlorothiazide 25 mg tablet 25 mg PO DAILY 05/13/23 10/15/24 History levothyroxine 75 mcg tablet 75 mcg PO DAILY 05/13/23 10/15/24 History losartan 50 mg tablet 50 mg PO DAILY 05/13/23 10/15/24 History multivitamin with minerals-folic 1 tablet PO DAILY 05/13/23 10/15/24 History acid 0.4 mg tablet solifenacin 5 mg tablet 5 mg PO DAILY 05/13/23 10/15/24 History pantoprazole 40 mg tablet,delayed 40 mg PO QAM #30 tabs 05/23/23 10/15/24 Rx release fluticasone propionate 50 1 spray intranasal DAILY #16 grams 10/15/24 Rx mcg/actuation nasal spray,suspension (Flonase Allergy Relief) tirzepatide (weight loss) 5 mg/0.5 5 mg subcut WEEKLY 03/14/25 03/14/25 History mL subcutaneous pen injector (Zepbound) Allergies Allergy/AdvReac Type Severity Reaction Status Date / Time No Known Allergies Allergy Verified 04/25/25 13:39 Vital Signs Vital Signs - 24 hr 04/25/25 14:16 Temperature 97.9 F Pulse Rate 95 Respiratory Rate 18 Blood Pressure 163/94 H Pulse Oximetry 99 Oxygen Delivery Room Air Exam Const: General: comfortable and no acute distress Other: A&O x3 HENMT: Mouth: Yes moist mucous membranes Eyes: Pupils: Equal, round and reactive pupils present Neck: Neck: supple Resp: Effort & Inspection: normal respiratory effort Auscultation: clear to auscultation bilaterally Cardio: Rate: regular rate Rhythm: regular rhythm GI: Inspection: non-distended GI Palp: Yes Soft to palpation and No Guarding due to palpation present (GI) Other: Mild tenderness to deep palpation of the left lower quadrant : General: Yes bladder normal to palpation Neuro: Motor exam (neuro): 5/5 motor strength present throughout Extrem: General: no edema H&P: Results Labs Labs: Short CBC 04/25/25 Range/Units 16:59 WBC 8.7 (4.5-10.0) K/mm3 Hgb 13.7 (12.0-15.0) g/dL Hct 43.1 (37.0-47.0) % Plt Count 283 (150-375) k/mm3 BMP 04/25/25 16:59 Sodium 139 Potassium 3.4 Chloride 103 Carbon Dioxide 27 BUN 9 D Creatinine 0.68 L Glucose 80 Calcium 9.3 Liver Function 04/25/25 Range/Units 16:59 Total Bilirubin 0.5 (0.2-1.3) mg/dL AST 24 (14-36) U/L ALT 15 (6-35) U/L Alkaline Phosphatase 71 (38-126) U/L Albumin 4.6 (3.5-5.1) g/dL Urine 04/25/25 Range/Units 16:59 Urine Color Yellow (Yellow) Urine Appearance Clear (Clear) Urine pH 6.5 (5.0-9.0) Ur Specific [place] 1.006 (1.001-1.035) Urine Protein Negative (Negative) mg/dL Urine Glucose (UA) Negative (Negative) mg/dL Assessment and Plan Assessment and plan (1) Colitis: Code(s): K52.9 - Noninfective gastroenteritis and colitis, unspecified Status: Acute (2) GI bleed: Code(s): K92.2 - Gastrointestinal hemorrhage, unspecified Status: Acute Plan A 70-year-old female presented to [facility] 04/25/2025 with multiple bloody bowel movements. Her symptoms 1st started on the day prior with left lower quadrant pain. Today she began to have diarrhea and then it progressed to bloody diarrhea, and is now just blood per rectum. No clots. Patient denies fever, recent travel, incarceration, sick contacts, recent surgery, recent antibiotic use. She has been generally healthy. She has a history of hypothyroidism, hypertension, asthma. She never had abdominal surgeries except hysterectomy. She reports she had a colonoscopy 2-[address] Martel before he retired. She was told to come back in 5 years, no abnormal findings. Does not know of family that has inflammatory bowel disease. Blood pressure in ER 163/94, otherwise vitals within normal limits. WBC 8700, hemoglobin 13.7, she reports she has not eaten or drank anything since the morning. Platelet count 283, INR 1.0, PTT 28.7, BUN 9, serum creatinine 0.68, sodium 139. Urinalysis with trace leukocyte esterase only. CT abdomen pelvis with contrast demonstrates extensive mucosal thickening of the colon most severe in descending colon consistent with colitis. I reviewed this as well. She was given ceftriaxone 1 g, metronidazole 500 mg, start on normal saline at 125 cc/hour. ----- Colitis: Continue ceftriaxone and metronidazole. Check stool culture, ova and parasites, lactoferrin, C diff PCR. Clear liquid diet. Normal saline at 125 cc/hour. Hemoglobin q.6 hour. Consider GI consultation in the morning. Hold [employer]LY[employer]NA[employer] antihypertensives. Medications will otherwise be resumed as indicated and appropriate. ----- Patient wishes to be full code. Prior to admission she is independent, living at home with her . Denies smoking, alcohol, illicit drug use. Normal saline infusion. Clear liquid diet. Pepcid IV b.i.d.. SCDs. Greater than 55 minutes spent on reviewing records, shared decision making with the patient and , medical decision making. Hospitalist MIPS Advance Care Plan I have confirmed that the patient's Advanced Care Plan is present, code status is documented, or surrogate decision maker is listed in patient medical record.: Yes Medication Reconciliation I have utilized all available resources to obtain, update and review the patients current medications (includes all prescriptions, OTC, herbals, cannabis, and nutritional supplements).: Yes
[2025-04-25 20:57] VITALS: BMI 30.2
--- NOTE | 2025-04-25 20:59 | ADMGEN ---
This patient, Emma Leggett, was admitted to [facility] Surg Room 332-01. Patient/family oriented to hospital policies and general routines including ID bracelet, bed and alarms, visiting hours, pain management, procedures, bathroom and other care routines, personal items, smoking policy, room service/diet, and visiting hours. Information on how to activate the Rapid Response Team has been discussed. Patient/Family are encouraged to report perceived risks to care and to ask questions if they do not understand what they are told or what they should do.
[2025-04-25] MEDS: FAMOTIDINE 20 MG/2 ML VIAL IV PUSH (21:17)
[2025-04-25] MEDS: metroNIDAZOLE 500 MG/ISO 100ML 500 MG/100 ML BAG 100 MG IVPB (21:17)
[2025-04-25 21:44] LABS: Hematocrit 40.6 % (37.0-47.0); Hemoglobin 13.3 g/dL (12.0-15.0)
[2025-04-25 22:00] VITALS: BP 150/79; PULSE 89; RESP 20; TEMP 36.5; O2SAT 99
[2025-04-25] MEDS: SODIUM CHLORIDE 0.9% IV 1,000 ML 125 ML IV CONT (22:22)
[2025-04-26] VITALS (7 sets, daily range): BP systolic 132–156; BP diastolic 64–81; PULSE 65–85; RESP 12–20; TEMP 35.8–36.9; O2SAT 98–100
[2025-04-26 02:11] LABS: Hematocrit 37.6 % (37.0-47.0); Hematocrit 38.0 % (37.0-47.0); Hemoglobin 12.3 g/dL (12.0-15.0); Hemoglobin 12.4 g/dL (12.0-15.0); Immature Granulocyte Percent A 0.3 % (0-0.5); Lymphocytes Absolute Auto 1.82 K/mm3 (0.9-3.2); Mean Corpuscular HGB Conc 32.6 g/dl (32-36); Mean Corpuscular Hemoglobin 30.6 pg (26-34); Mean Corpuscular Volume 93.8 fl (80-100); Nucleated Red Blood Cells Absolute Auto 0.000 K/mm3 (0.0-0.012); Nucleated Red Blood Cells Perc 0.0 % (0.0-0.2); Platelet Count Result 249 k/mm3 (150-375); Red Blood Count 4.05 M/mm3 (4.2-5.4); White Blood Count 7.0 K/mm3 (4.5-10.0)
[2025-04-26 02:25] LABS: Anion Gap 6 mmol/L (4-12); Blood Urea Nitrogen 9 mg/dL (7-17); Calcium 8.7 mg/dL (8.4-10.2); Carbon Dioxide 24 mmol/L (22-30); Chloride 106 mmol/L (98-107); Estimated CRCL calculation 69 ml/min; Estimated Glomerular Filt Rate > 60; Glucose 84 mg/dL (65-110); Magnesium 1.8 mg/dL (1.6-2.3); Potassium 3.3 mmol/L (3.4-5.0); Sodium 136 mmol/L (137-145)
[2025-04-26] MEDS: metroNIDAZOLE 500 MG/ISO 100ML 500 MG/100 ML BAG 100 MG IVPB ×3 (05:29→21:21)
[2025-04-26] MEDS: SODIUM CHLORIDE 0.9% IV 1,000 ML 125 ML IV CONT ×2 (06:34→16:51)
[2025-04-26 06:46] LABS: Hematocrit 37.6 % (37.0-47.0); Hemoglobin 12.2 g/dL (12.0-15.0)
[2025-04-26] MEDS: KCL 20 MEQ/SW 100 ML 100 ML 50 MEQ IVPB (06:46)
[2025-04-26] MEDS: SALMETEROL XINAFOATE 50 MCG DISKUS 1 PUFF INHALATION ×2 (07:35→20:50)
[2025-04-26] MEDS: FAMOTIDINE 20 MG/2 ML VIAL IV PUSH ×2 (09:58→20:06)
[2025-04-26] MEDS: ACETAMINOPHEN 325 MG TABLET 650 MG PO (10:05)
--- NOTE | 2025-04-26 10:28 | P.PNIM_ITS ---
Progress Note: A&P Assessment and Plan (1) Colitis: Code(s): K52.9 - Noninfective gastroenteritis and colitis, unspecified Status: Acute (2) GI bleed: Code(s): K92.2 - Gastrointestinal hemorrhage, unspecified Status: Acute Plan A 70-year-old female presented to [facility] 04/25/2025 with multiple bloody bowel movements. Her symptoms 1st started on the day prior with left lower quadrant pain. Today she began to have diarrhea and then it progressed to bloody diarrhea, and is now just blood per rectum. No clots. Patient denies fever, recent travel, incarceration, sick contacts, recent surgery, recent antibiotic use. She has been generally healthy. She has a history of hypothyroidism, hypertension, asthma. She never had abdominal surgeries except hysterectomy. She reports she had a colonoscopy 2-[address] Martel before he retired. She was told to come back in 5 years, no abnormal findings. Does not know of family that has inflammatory bowel disease. Blood pressure in ER 163/94, otherwise vitals within normal limits. WBC 8700, hemoglobin 13.7, she reports she has not eaten or drank anything since the morning. Platelet count 283, INR 1.0, PTT 28.7, BUN 9, serum creatinine 0.68, sodium 139. Urinalysis with trace leukocyte esterase only. CT abdomen pelvis with contrast demonstrates extensive mucosal thickening of the colon most severe in descending colon consistent with colitis. Started on empiric ceftriaxone 1 g, metronidazole 500 mg, and fluids Acute Colitis Not clearly infectious or inflammatory per history. No fevers. No rashes or joint pain. No recent travel or other infectious symptoms. No recent fevers. Continue ceftriaxone and metronidazole Check stool culture, ova and parasites, lactoferrin, C diff PCR. Clear liquid diet Normal saline at 125 cc/hour. Hemoglobin q.6 hour. GI consultation given continued BRBPR, may need colonoscopy or flex sig Check inflammatory markers--Follow CRP HTN Hold HALF BACKER antihypertensives. Medications will otherwise be resumed as indicated and appropriate. Full code Prior to admission she is independent, living at home with her . Denies smoking, alcohol, illicit drug use. Pepcid IV b.i.d.. SCDs. Time Spent With Patient Time: 57 minutes. Discussed with GI Subjective Date/time seen: 04/26/25 10:28 Interval history: Reports 6 loose stools yesterday and 3 today. Asked her to take pictures if she has more Believes there were clots in stool yesterday. Water in toilet reported red today. Mild nausea yesterday, no dizziness. Having intermittent abdominal cramping but no tenderness to palpation CT showed infectious vs inflammatory colitis. Follow CBC, check inflammatory markers. Had a type & screen overnight Reason for hospitalization 70-year-old female presented to [facility] 04/25/2025 with multiple bloody bowel movements. Her symptoms 1st started on the day prior with left lower quadrant pain. Today she began to have diarrhea and then it progressed to bloody diarrhea, continued bleeding Review of Systems Review of Systems: All systems reviewed & are unremarkable except as noted in HPI and below (Subjective) Exam Narrative: General - Awake and alert. No acute distress Eyes - PERRLA, EOM intact ENT - No thrush, No erythema Neck - No noticeable or palpable swelling Lymph Nodes - No lymphadenopathy Cardiovascular - RRR no m/r/g, no JVD Lungs: Clear to auscultation, No wheezing, use of accessory muscles, no crackles Skin - Skin warm and dry, no wounds or rashes Abdomen - Normal bowel sounds, abdomen soft and nontender Extremities - No edema, cyanosis or clubbing Musculoskeletal - 5/5 strength, normal range of motion, no swollen or erythematous joints. Neurological ? Alert and oriented x 3, CN 2-12 grossly intact. Psych: Normal mood and affect Objective Data Vital Signs Vital Signs: Vital Signs - 24 hr 04/25/25 14:16 04/25/25 22:00 04/26/25 05:43 Temperature 97.9 F 97.7 F 98.4 F Pulse Rate 95 89 82 Respiratory Rate 18 20 20 Blood Pressure 163/94 H 150/79 H 132/72 Pulse Oximetry 99 99 100 Oxygen Delivery Room Air 04/26/25 07:35 Temperature Pulse Rate 82 Respiratory Rate 18 Blood Pressure Pulse Oximetry Oxygen Delivery Intake/Output Intake/Output: Intake & Output 04/23/25 04/24/25 04/25/25 04/26/25 23:59 23:59 23:59 23:59 Intake Total 50 1720 Balance 50 1720 Meds/Results Medications: Active Medications Generic Name Dose Route Start Last Admin Trade Name Freq PRN Reason Stop Dose Admin Acetaminophen 650 mg 04/25/25 19:44 04/26/25 10:05 Acetaminophen 325 Mg Tablet PO 650 mg Q4H PRN Administration Mild Pain (1-3) or Fever Albuterol 1 puff 04/26/25 00:56 Albuterol Sulfate (*Sp) Aerosol 1 Puff INHALATION Q4HRT PRN Shortness Of Breath Famotidine 20 mg 04/25/25 20:20 04/26/25 09:58 Famotidine 20 Mg/2 Ml Vial IV PUSH 20 mg Q12HR CLAUDIA Administration Fluticasone Propionate 1 spray 04/26/25 09:00 04/26/25 10:08 Fluticasone Propionate 0.05% Na Spr 16 Gm Btl (*Bkc) NASAL Not Given DAILY CLAUDIA Ceftriaxone Sodium 1 gm/ 50 mls @ 100 mls/hr 04/26/25 20:00 Sodium Chloride IVPB Q24H CLAUDIA Metronidazole 500 mg in 100 mls @ 100 mls/hr 04/26/25 06:00 04/26/25 05:29 Flagyl 500 Mg/Iso Soln 100 Ml IVPB 100 mls/hr Q8HR CLAUDIA Administration Sodium Chloride 1,000 mls @ 125 mls/hr 04/25/25 19:45 04/26/25 06:34 Normal Saline Iv IV CONT 125 mls/hr .Q8H CLAUDIA Administration Ondansetron HCl 4 mg 04/25/25 19:44 Ondansetron Inj 4 Mg/2 Ml Vial IV PUSH Q4H PRN Nausea Salmeterol Xinafoate 1 puff 04/26/25 08:00 04/26/25 07:35 Salmeterol Xinafoate 50 Mcg Diskus INHALATION 1 puff Q12HRT CLAUDIA Administration Radiology Results: ITS Impressions Abdomen/Pelvis CT 04/25/25 17:35 IMPRESSION: 1. Extensive mucosal thickening of the colon, most severe in the descending colon, consistent with colitis, most likely infectious or inflammatory. Labs Labs: Laboratory Results - last 24 hr 04/25/25 04/25/25 04/26/25 16:59 21:40 02:07 WBC 8.7 7.0 RBC 4.58 4.05 L Hgb 13.7 13.3 12.4 Hct 43.1 40.6 MCV 94.1 MCH 29.9 MCHC 31.8 L RDW 13.0 Plt Count 283 MPV 9.8 Immature Gran % (Auto) 0.2 Neut % (Auto) 55.9 Lymph % (Auto) 32.9 [place] % (Auto) 7.2 Eos % (Auto) 3.3 Baso % (Auto) 0.5 Lymph # (Auto) 2.87 [place] # (Auto) 0.6 Eos # (Auto) 0.3 Baso # (Auto) 0.0 Abs Immat Gran (auto) 0.02 Absolute Neuts (auto) 4.9 Absolute Nucleated RBC 0.000 Nucleated RBC % 0.0 PT 13.8 INR 1.0 APTT 28.7 Sodium 139 Potassium 3.4 Chloride 103 Carbon Dioxide 27 Anion Gap 9 BUN 9 D Creatinine 0.68 L Estim Creat Clear Calc 64 Estimated GFR > 60 Glucose 80 Lactic Acid 1.3 Calcium 9.3 Phosphorus Magnesium Total Bilirubin 0.5 AST 24 ALT 15 Alkaline Phosphatase 71 Total Protein 8.7 H Albumin 4.6 Urine Color Yellow Urine Appearance Clear Urine pH 6.5 Ur Specific [place] 1.006 Urine Protein Negative Urine Glucose (UA) Negative Urine Ketones Negative Ur Blood (Man) Trace Urine Nitrate Negative Urine Bilirubin Negative Urine Urobilinogen 0.2 Leukocyte Esterase Rfl Trace H Urine RBC 3-5 H Urine WBC 0-5 Ur Squamous Epith Cells None seen Urine Bacteria None seen Urine Casts 0-2 Blood Type B Positive Antibody Screen Negative 04/26/25 04/26/25 04/26/25 02:07 02:07 06:09 WBC RBC Hgb 12.3 12.2 Hct 38.0 37.6 37.6 MCV 93.8 MCH 30.6 MCHC 32.6 RDW 13.0 Plt Count 249 MPV 9.9 Immature Gran % (Auto) 0.3 Neut % (Auto) 62.2 Lymph % (Auto) 25.9 [place] % (Auto) 8.5 Eos % (Auto) 2.7 Baso % (Auto) 0.4 Lymph # (Auto) 1.82 [place] # (Auto) 0.6 Eos # (Auto) 0.2 Baso # (Auto) 0.0 Abs Immat Gran (auto) 0.02 Absolute Neuts (auto) 4.4 Absolute Nucleated RBC 0.000 Nucleated RBC % 0.0 PT INR APTT Sodium 136 L Potassium 3.3 L Chloride 106 Carbon Dioxide 24 Anion Gap 6 BUN 9 Creatinine 0.63 L Estim Creat Clear Calc 69 Estimated GFR > 60 Glucose 84 Lactic Acid Calcium 8.7 Phosphorus 3.5 Magnesium 1.8 Total Bilirubin AST ALT Alkaline Phosphatase Total Protein Albumin Urine Color Urine Appearance Urine pH Ur Specific [place] Urine Protein Urine Glucose (UA) Urine Ketones Ur Blood (Man) Urine Nitrate Urine Bilirubin Urine Urobilinogen Leukocyte Esterase Rfl Urine RBC Urine WBC Ur Squamous Epith Cells Urine Bacteria Urine Casts Blood Type Antibody Screen Quality VTE Prophylaxis VTE prophylaxis: mechanical ordered Hospitalist MIPS Advance Care Plan I have confirmed that the patient's Advanced Care Plan is present, code status is documented, or surrogate decision maker is listed in patient medical record.: Yes Medication Reconciliation I have utilized all available resources to obtain, update and review the patients current medications (includes all prescriptions, OTC, herbals, cannabis, and nutritional supplements).: Yes
[2025-04-26 13:59] LABS: Hematocrit 36.8 % (37.0-47.0); Hemoglobin 11.7 g/dL (12.0-15.0); Immature Granulocyte Percent A 0.3 % (0-0.5); Lymphocytes Absolute Auto 2.29 K/mm3 (0.9-3.2); Mean Corpuscular HGB Conc 31.8 g/dl (32-36); Mean Corpuscular Hemoglobin 30.4 pg (26-34); Mean Corpuscular Volume 95.6 fl (80-100); Nucleated Red Blood Cells Absolute Auto 0.000 K/mm3 (0.0-0.012); Nucleated Red Blood Cells Perc 0.0 % (0.0-0.2); Platelet Count Result 241 k/mm3 (150-375); Red Blood Count 3.85 M/mm3 (4.2-5.4); White Blood Count 7.1 K/mm3 (4.5-10.0)
[2025-04-26 14:14] LABS: CRP 3.4 mg/dL (<1.0)
[2025-04-26 14:15] LABS: Anion Gap 6 mmol/L (4-12); Blood Urea Nitrogen 7 mg/dL (7-17); Calcium 8.4 mg/dL (8.4-10.2); Carbon Dioxide 25 mmol/L (22-30); Chloride 106 mmol/L (98-107); Estimated CRCL calculation 68 ml/min; Estimated Glomerular Filt Rate > 60; Glucose 76 mg/dL (65-110); Potassium 3.6 mmol/L (3.4-5.0); Sodium 137 mmol/L (137-145)
[2025-04-26] MEDS: SOLIFENACIN 5 MG TABLET PO (16:30)
--- NOTE | 2025-04-26 17:26 | WPDGICN ---
Assessment and Plan Assessment and plan (1) Colitis: Code(s): K52.9 - Noninfective gastroenteritis and colitis, unspecified Status: Acute Assessment and Plan: differential could be ischemic vs infectious- denies fever, no sick contacts, normal wbc, also normal lactic I think that she is already feeling better advance diet, continue with abx and hopefully home tomorrow if continues to improve plan to do colonoscopy in 4-6 weeks she is fully recovered pending stool culture and c diff (2) Rectal bleeding: Code(s): K62.5 - Hemorrhage of anus and rectum Status: Acute (3) LLQ pain: Code(s): R10.32 - Left lower quadrant pain Status: Acute GI Consult Note Consult date/time: 04/26/25 17:26 Reason for consult: colitis, bloody diarrhea HPI: Emma Leggett is a 70 year old female here with new onset of bloody bowel movements. 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 She had colonoscopy few years ago with no major finding and never had colitis. ER showed WBC 8700, hemoglobin 13.7, Platelet count 283, INR 1.0, PTT 28.7, BUN 9, serum creatinine 0.68, sodium 139, normal lactic acid. Denies sick contacts or different diet. CT abdomen pelvis with contrast demonstrates extensive mucosal thickening of the colon most severe in descending colon consistent with colitis. Started on iv fluids and abx, already feeling better. No fever. Review of Systems Constitutional: Constitutional: Denies headache(s) and Denies weakness Eyes: Eyes: Denies blurry vision ENT: Reports Normal hearing present, Denies headache(s) and Denies neck pain Cardiovascular: Cardiovascular: Denies chest pain and Denies dyspnea Respiratory: Respiratory: Denies dyspnea Gastrointestinal: Gastrointestinal: Reports no additional gastrointestinal complaints Genitourinary: Genitourinary: Denies dysuria Musculoskeletal: Musculoskeletal: Denies neck pain Integumentary/Breasts: Skin/Breast: Denies dry skin Neurologic: Reports Normal hearing present, Denies headache(s) and Denies weakness Psychiatric: Psychiatric: Denies anxiety PMFSH Past Medical History Medical History (Updated 04/26/25 @ 17:31 by Syed Junior MD) LLQ pain Rectal bleeding Dyslipidemia Obesity Back pain Hypertension Asthma History of vaginal delivery x2 Surgical History Surgical History History of carpal tunnel surgery of right wrist History of total hysterectomy History of tubal ligation Family History Family History Father Hypertension Mother Hypertension Cerebrovascular accident Sibling Carcinoma of colon Social History Social History Smoking status: Never smoker Second hand tobacco smoke exposure: No Alcohol intake: never Substance use type: does not use Do You Feel Safe in your Home?: Yes Lack of Transportation: No Lack of Food: Never True Current Housing: I Have Housing Concerned About Future Housing: No Difficulty Paying Gas/Electric Bills: No Difficulty Paying for Meds: No Currently Unemployed: No Education: Master's Degree or Higher Difficulty w/ Childcare or Family Care: No Living arrangements: with friend(s) Spiritual care concerns: No Meds Home Medications and Allergies Home Medications ?Medication ?Instructions ?Recorded ?Confirmed ?Type albuterol sulfate 90 mcg/actuation 1 inhalation inhalation Q4H PRN 09/13/19 04/25/25 History aerosol inhaler (ProAir HFA) Shortness Of Breath aspirin 81 mg tablet,delayed 81 mg PO DAILY 09/13/19 04/25/25 History release (Adult Aspirin Regimen) atorvastatin 20 mg tablet 20 mg PO DAILY 09/13/19 04/25/25 History cholecalciferol (vitamin D3) 25 25 mcg PO DAILY 09/13/19 04/25/25 History mcg (1,000 unit) capsule paroxetine HCl 10 mg tablet 10 mg PO DAILY 09/13/19 04/25/25 History salmeterol 50 mcg/dose blister 1 inhalation inhalation Q12H 09/13/19 04/25/25 History powder for inhalation (Serevent Diskus) calcium carbonate (Calcium 600) 600 mg PO BID 05/13/23 04/25/25 History hydrochlorothiazide 25 mg tablet 25 mg PO DAILY 05/13/23 04/25/25 History levothyroxine 75 mcg tablet 75 mcg PO DAILY 05/13/23 04/25/25 History losartan 50 mg tablet 50 mg PO DAILY 05/13/23 04/25/25 History multivitamin with minerals-folic 1 tablet PO DAILY 05/13/23 04/25/25 History acid 0.4 mg tablet solifenacin 5 mg tablet 5 mg PO DAILY 05/13/23 04/25/25 History pantoprazole 40 mg tablet,delayed 40 mg PO QAM #30 tabs 05/23/23 04/25/25 Rx release fluticasone propionate 50 1 spray intranasal DAILY #16 grams 10/15/24 04/25/25 Rx mcg/actuation nasal spray,suspension (Flonase Allergy Relief) tirzepatide (weight loss) 5 mg/0.5 5 mg subcut WEEKLY 10/15/24 04/25/25 History mL subcutaneous pen injector (Zepbound) Allergies Allergy/AdvReac Type Severity Reaction Status Date / Time No Known Allergies Allergy Verified 04/25/25 21:25 Vital Signs Vital Signs - 24 hr 04/25/25 22:00 04/26/25 05:43 04/26/25 07:35 Temperature 97.7 F 98.4 F Pulse Rate 89 82 82 Respiratory Rate 20 20 18 Blood Pressure 150/79 H 132/72 Pulse Oximetry 99 100 Oxygen Delivery 04/26/25 08:00 04/26/25 14:05 Temperature 96.5 F L Pulse Rate 80 Respiratory Rate 12 Blood Pressure 132/64 Pulse Oximetry 100 Oxygen Delivery Room Air Exam Const: General: comfortable and no acute distress HENMT: Face/Nose/Sinus: Normal nares present Eyes: General: appearance normal, both eyes and all related structures Neck: Neck: no JVD Resp: Auscultation: clear to auscultation bilaterally Cardio: Rate: regular rate Rhythm: regular rhythm GI: Inspection: non-distended GI Palp: Yes Soft to palpation Skin: General skin exam: normal color Neuro: Speech: normal speech Extrem: General: normal to inspection Psych: Mental Status: mental status grossly normal Results Labs 04/26/25 13:53 04/26/25 13:53 Labs: Short CBC 04/25/25 04/26/25 04/26/25 Range/Units 21:40 02:07 02:07 WBC 7.0 (4.5-10.0) K/mm3 Hgb 13.3 12.4 12.3 (12.0-15.0) g/dL Hct 40.6 38.0 (37.0-47.0) % Plt Count (150-375) k/mm3 04/26/25 04/26/25 04/26/25 Range/Units 02:07 06:09 13:53 WBC 7.1 (4.5-10.0) K/mm3 Hgb 12.2 11.7 L (12.0-15.0) g/dL Hct 37.6 37.6 36.8 L (37.0-47.0) % Plt Count 249 241 (150-375) k/mm3 BMP 04/26/25 04/26/25 02:07 13:53 Sodium 136 L 137 Potassium 3.3 L 3.6 Chloride 106 106 Carbon Dioxide 24 25 BUN 9 7 Creatinine 0.63 L 0.64 L Glucose 84 76 Calcium 8.7 8.4
[2025-04-26] MEDS: cefTRIAXone 1 GM in SODIUM CHLORIDE 0.9% IV 50 ML 100 ML IVPB (20:06)
[2025-04-27] MEDS: SODIUM CHLORIDE 0.9% IV 1,000 ML 125 ML IV CONT ×2 (02:59→13:00)
[2025-04-27] MEDS: metroNIDAZOLE 500 MG/ISO 100ML 500 MG/100 ML BAG 100 MG IVPB ×2 (05:29→13:56)
[2025-04-27] MEDS: LEVOTHYROXINE SODIUM 75 MCG TABLET PO (05:32)
[2025-04-27] MEDS: ACETAMINOPHEN 325 MG TABLET 650 MG PO (05:52)
[2025-04-27 06:00] VITALS: BP 138/75; PULSE 88; RESP 16; TEMP 36.7; O2SAT 99
--- NOTE | 2025-04-27 08:11 | P.PNIM_ITS ---
Progress Note: A&P Assessment and Plan (1) Colitis: Code(s): K52.9 - Noninfective gastroenteritis and colitis, unspecified Status: Acute (2) GI bleed: Code(s): K92.2 - Gastrointestinal hemorrhage, unspecified Status: Acute Plan A 70-year-old female presented to [facility] 04/25/2025 with multiple bloody bowel movements. Her symptoms 1st started on the day prior with left lower quadrant pain. Today she began to have diarrhea and then it progressed to bloody diarrhea, and is now just blood per rectum. No clots. Patient denies fever, recent travel, incarceration, sick contacts, recent surgery, recent antibiotic use. She has been generally healthy. She has a history of hypothyroidism, hypertension, asthma. She never had abdominal surgeries except hysterectomy. She reports she had a colonoscopy 2-[address] Martel before he retired. She was told to come back in 5 years, no abnormal findings. Does not know of family that has inflammatory bowel disease. Blood pressure in ER 163/94, otherwise vitals within normal limits. WBC 8700, hemoglobin 13.7, she reports she has not eaten or drank anything since the morning. Platelet count 283, INR 1.0, PTT 28.7, BUN 9, serum creatinine 0.68, sodium 139. Urinalysis with trace leukocyte esterase only. CT abdomen pelvis with contrast demonstrates extensive mucosal thickening of the colon most severe in descending colon consistent with colitis. Started on empiric ceftriaxone 1 g, metronidazole 500 mg, and fluids and improving Acute Colitis Not clearly infectious or inflammatory per history. No fevers. No rashes or joint pain. No recent travel or other infectious symptoms. No recent fevers. Continue ceftriaxone and metronidazole and improving so more likely infectious Check stool culture, ova and parasites, lactoferrin, C diff PCR. Clear liquid diet--advance to regular and monitor Normal saline at 125 cc/hour. Hemoglobin q.6 hour. 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 Medications will otherwise be resumed as indicated and appropriate. Reduced losartan, can resume regular dose if remains stable Full code Prior to admission she is independent, living at home with her . Denies smoking, alcohol, illicit drug use. Pepcid IV b.i.d.. SCDs. Time Spent With Patient Time: 56 minutes Subjective Date/time seen: 04/27/25 08:11 Interval history: No BM's overnight. Blood count stable. Unable to collect stool studies No fevers, VSS Advance diet for lunch today Reason for hospitalization 70-year-old female presented to [facility] 04/25/2025 with multiple bloody bowel movements. Her symptoms 1st started on the day prior with left lower quadrant pain. Today she began to have diarrhea and then it progressed to bloody diarrhea, continued bleeding. Pain and bleeding improving. CT showed infectious vs inflammatory colitis. GI consulted, planning outpatient scope in 4-6 weeks Review of Systems Review of Systems: All systems reviewed & are unremarkable except as noted in HPI and below (Subjective) Exam Narrative: General - Awake and alert. No acute distress Eyes - PERRLA, EOM intact ENT - No thrush, No erythema Neck - No noticeable or palpable swelling Lymph Nodes - No lymphadenopathy Cardiovascular - RRR no m/r/g, no JVD Lungs: Clear to auscultation, No wheezing, use of accessory muscles, no crackles Skin - Skin warm and dry, no wounds or rashes Abdomen - Normal bowel sounds, abdomen soft and nontender Extremities - No edema, cyanosis or clubbing Musculoskeletal - 5/5 strength, normal range of motion, no swollen or erythematous joints. Neurological ? Alert and oriented x 3, CN 2-12 grossly intact. Psych: Normal mood and affect Objective Data Vital Signs Vital Signs: Vital Signs - 24 hr 04/26/25 14:05 04/26/25 20:09 04/26/25 20:50 Temperature 96.5 F L Pulse Rate 80 85 65 Respiratory Rate 12 18 16 Blood Pressure 132/64 Pulse Oximetry 100 100 Oxygen Delivery Room Air Fraction of Inspired Oxygen 21 04/26/25 20:53 04/26/25 21:29 04/27/25 06:00 Temperature 98.1 F 98.0 F Pulse Rate 65 85 88 Respiratory Rate 16 18 16 Blood Pressure 156/81 H 138/75 Pulse Oximetry 98 100 99 Oxygen Delivery Room Air Fraction of Inspired Oxygen 21 Intake/Output Intake/Output: Intake & Output 04/24/25 04/25/25 04/26/25 04/27/25 23:59 23:59 23:59 23:59 Intake Total 50 3940 1200 Balance 50 3940 1200 Meds/Results Medications: Active Medications Generic Name Dose Route Start Last Admin Trade Name Freq PRN Reason Stop Dose Admin Acetaminophen 650 mg 04/25/25 19:44 04/27/25 05:52 Acetaminophen 325 Mg Tablet PO 650 mg Q4H PRN Administration Mild Pain (1-3) or Fever Albuterol 1 puff 04/26/25 00:56 Albuterol Sulfate (*Sp) Aerosol 1 Puff INHALATION Q4HRT PRN Shortness Of Breath Atorvastatin Calcium 20 mg 04/27/25 09:00 Atorvastatin 20 Mg Tablet PO DAILY CLAUDIA Famotidine 20 mg 04/25/25 20:20 04/26/25 20:06 Famotidine 20 Mg/2 Ml Vial IV PUSH 20 mg Q12HR CLAUDIA Administration Fluticasone Propionate 1 spray 04/26/25 09:00 04/26/25 10:08 Fluticasone Propionate 0.05% Na Spr 16 Gm Btl (*Bkc) NASAL Not Given DAILY CLAUDIA Ceftriaxone Sodium 1 gm/ 50 mls @ 100 mls/hr 04/26/25 20:00 04/26/25 20:06 Sodium Chloride IVPB 100 mls/hr Q24H CLAUDIA Administration Metronidazole 500 mg in 100 mls @ 100 mls/hr 04/26/25 06:00 04/27/25 05:29 Flagyl 500 Mg/Iso Soln 100 Ml IVPB 100 mls/hr Q8HR CLAUDIA Administration Sodium Chloride 1,000 mls @ 125 mls/hr 04/25/25 19:45 04/27/25 02:59 Normal Saline Iv IV CONT 125 mls/hr .Q8H CLAUDIA Administration Levothyroxine Sodium 75 mcg 04/27/25 06:30 04/27/25 05:32 Levothyroxine Sodium 75 Mcg Tablet PO 75 mcg DAILY@0630 CLAUDIA Administration Losartan Potassium 25 mg 04/27/25 09:00 Losartan Potassium 25 Mg Tablet PO DAILY CLAUDIA Ondansetron HCl 4 mg 04/25/25 19:44 Ondansetron Inj 4 Mg/2 Ml Vial IV PUSH Q4H PRN Nausea Pantoprazole Sodium 40 mg 04/27/25 09:00 Pantoprazole 40 Mg Tablet PO QAM CLAUDIA Paroxetine HCl 10 mg 04/26/25 16:10 04/26/25 16:30 Paroxetine 10 Mg Tablet PO 10 mg DAILY CLAUDIA Administration Salmeterol Xinafoate 1 puff 04/26/25 08:00 04/26/25 20:50 Salmeterol Xinafoate 50 Mcg Diskus INHALATION 1 puff Q12HRT CLAUDIA Administration Solifenacin 5 mg 04/26/25 16:10 04/26/25 16:30 Solifenacin 5 Mg Tablet PO 5 mg DAILY CLAUDIA Administration Radiology Results: ITS Impressions Abdomen/Pelvis CT 04/25/25 17:35 IMPRESSION: 1. Extensive mucosal thickening of the colon, most severe in the descending colon, consistent with colitis, most likely infectious or inflammatory. Labs Labs: Laboratory Results - last 24 hr 04/26/25 13:53 WBC 7.1 RBC 3.85 L Hgb 11.7 L Hct 36.8 L MCV 95.6 MCH 30.4 MCHC 31.8 L RDW 13.1 Plt Count 241 MPV 9.9 Immature Gran % (Auto) 0.3 Neut % (Auto) 53.7 Lymph % (Auto) 32.2 [place] % (Auto) 9.8 H Eos % (Auto) 3.4 Baso % (Auto) 0.6 Lymph # (Auto) 2.29 [place] # (Auto) 0.7 H Eos # (Auto) 0.2 Baso # (Auto) 0.0 Abs Immat Gran (auto) 0.02 Absolute Neuts (auto) 3.8 Absolute Nucleated RBC 0.000 Nucleated RBC % 0.0 ESR 33 H Sodium 137 Potassium 3.6 Chloride 106 Carbon Dioxide 25 Anion Gap 6 BUN 7 Creatinine 0.64 L Estim Creat Clear Calc 68 Estimated GFR > 60 Glucose 76 Calcium 8.4 C-Reactive Protein 3.4 H Quality VTE Prophylaxis VTE prophylaxis: mechanical ordered Hospitalist MIPS Advance Care Plan I have confirmed that the patient's Advanced Care Plan is present, code status is documented, or surrogate decision maker is listed in patient medical record.: Yes Medication Reconciliation I have utilized all available resources to obtain, update and review the patients current medications (includes all prescriptions, OTC, herbals, cannabis, and nutritional supplements).: Yes
[2025-04-27] MEDS: ATORVASTATIN 20 MG TABLET PO (08:33)
[2025-04-27] MEDS: LOSARTAN POTASSIUM 25 MG TABLET PO (08:33)
[2025-04-27] MEDS: PANTOPRAZOLE 40 MG TABLET PO (08:33)
[2025-04-27] MEDS: SOLIFENACIN 5 MG TABLET PO (08:33)
[2025-04-27] MEDS: SALMETEROL XINAFOATE 50 MCG DISKUS 1 PUFF INHALATION (08:34)
[2025-04-27 08:35] VITALS: PULSE 88; RESP 20
[2025-04-27] MEDS: FAMOTIDINE 20 MG/2 ML VIAL IV PUSH (08:35)
[2025-04-27 09:12] LABS: Hematocrit 36.5 % (37.0-47.0); Hemoglobin 11.6 g/dL (12.0-15.0); Immature Granulocyte Percent A 0.2 % (0-0.5); Lymphocytes Absolute Auto 1.75 K/mm3 (0.9-3.2); Mean Corpuscular HGB Conc 31.8 g/dl (32-36); Mean Corpuscular Hemoglobin 30.7 pg (26-34); Mean Corpuscular Volume 96.6 fl (80-100); Nucleated Red Blood Cells Absolute Auto 0.000 K/mm3 (0.0-0.012); Nucleated Red Blood Cells Perc 0.0 % (0.0-0.2); Platelet Count Result 234 k/mm3 (150-375); Red Blood Count 3.78 M/mm3 (4.2-5.4); White Blood Count 5.8 K/mm3 (4.5-10.0)
[2025-04-27 09:42] LABS: Alanine Aminotransferase 12 U/L (6-35); Albumin Level 3.4 g/dL (3.5-5.1); Alkaline Phosphatase 53 U/L (38-126); Anion Gap 5 mmol/L (4-12); Aspartate Amino Transferase 22 U/L (14-36); Bilirubin,Total 0.3 mg/dL (0.2-1.3); Blood Urea Nitrogen 3 mg/dL (7-17); CRP 2.6 mg/dL (<1.0); Calcium 8.3 mg/dL (8.4-10.2); Carbon Dioxide 26 mmol/L (22-30); Chloride 109 mmol/L (98-107); Estimated CRCL calculation 71 ml/min; Estimated Glomerular Filt Rate > 60; Glucose 106 mg/dL (65-110); Magnesium 2.0 mg/dL (1.6-2.3); Potassium 3.2 mmol/L (3.4-5.0); Sodium 140 mmol/L (137-145); Total Protein 6.5 g/dL (6.3-8.2)
[2025-04-27] MEDS: POTASSIUM CHLORIDE 20 MEQ ER TABLET 40 MEQ PO (10:37)
--- NOTE | 2025-04-27 12:21 | P.DS_ITS ---
DS: Admitting Diagnosis Discharge Date 04/27/2025 Admitting Diagnosis Blood per rectum DS: Discharge Diagnosis Discharge Diagnosis (1) Colitis: Code(s): K52.9 - Noninfective gastroenteritis and colitis, unspecified Status: Acute (2) GI bleed: Code(s): K92.2 - Gastrointestinal hemorrhage, unspecified Status: Acute DS: Summary Hospital Course Reason for hospitalization: Copied from [facility] 04/25 A 70-year-old female presented to [facility] 04/25/2025 with multiple bloody bowel movements. Her symptoms 1st started on the day prior with left lower quadrant pain. Today she began to have diarrhea and then it progressed to bloody diarrhea, and is now just blood per rectum. No clots. Patient denies fever, recent travel, incarceration, sick contacts, recent surgery, recent antibiotic use. She has been generally healthy. She has a history of hypothyroidism, hypertension, asthma. She never had abdominal surgeries except hysterectomy. She reports she had a colonoscopy 2-[address] Martel before he retired. She was told to come back in 5 years, no abnormal findings. Does not know of family that has inflammatory bowel di sease. Blood pressure in ER 163/94, otherwise vitals within normal limits. WBC 8700, hemoglobin 13.7, she reports she has not eaten or drank anything since the morning. Platelet count 283, INR 1.0, PTT 28.7, BUN 9, serum creatinine 0.68, sodium 139. Urinalysis with trace leukocyte esterase only. CT abdomen pelvis with contrast demonstrates extensive mucosal thickening of the colon most severe in descending colon consistent with colitis. I reviewed this as well. She was given ceftriaxone 1 g, metronidazole 500 mg, start on normal saline at 125 cc/hour. Hospital Course: A 70-year-old female presented to [facility] 04/25/2025 with multiple bloody bowel movements. Her symptoms 1st started on the day prior with left lower quadrant pain. Today she began to have diarrhea and then it progressed to bloody diarrhea, and is now just blood per rectum. No clots. Patient denies fever, recent travel, incarceration, sick contacts, recent surgery, recent antibiotic use. She has been generally healthy. She has a history of hypothyroidism, hypertension, asthma. She never had abdominal surgeries except hysterectomy. She reports she had a colonoscopy 2-[address] Martel before he retired. She was told to come back in 5 years, no abnormal findings. Does not know of family that has inflammatory bowel disease. Blood pressure in ER 163/94, otherwise vitals within normal limits. WBC 8700, hemoglobin 13.7, she reports she has not eaten or drank anything since the morning. Platelet count 283, INR 1.0, PTT 28.7, BUN 9, serum creatinine 0.68, sodium 139. Urinalysis with trace leukocyte esterase only. CT abdomen pelvis with contrast demonstrated extensive mucosal thickening of the colon most severe in descending colon consistent with colitis. Started on empiric ceftriaxone 1 g, metronidazole 500 mg, and fluids and was improving. Discussed with GI and recommended again continuing antibiotics since unclear etiology of colitis and possibly ischemic Acute Colitis Not clearly infectious or inflammatory per history. No fevers. No rashes or joint pain. No recent travel or other infectious symptoms. No recent fevers. Unable to sent stool studies because diarrhea resolved. CRP 3.4>2.6 Continued ceftriaxone and metronidazole during admission, stopped at discharge after discussing with GI Clear liquid diet--advanced to regular GI consulted during admission, planning outpatient colonscopy HTN Hold TIRE STRIPPER antihypertensives. Medications will otherwise be resumed as indicated and appropriate. Reduced losartan, can resume regular dose if remains stable Full code Prior to admission she is independent, living at home with her . Denies smoking, alcohol, illicit drug use. Status at Discharge Cognitive/behavioral status at discharge: A&OX4 Time Spent with Patient Time attestation: Total time spent providing and/or coordinating discharge services: 58 minutes Exam Narrative: General - Awake and alert. No acute distress Eyes - PERRLA, EOM intact ENT - No thrush, No erythema Neck - No noticeable or palpable swelling Lymph Nodes - No lymphadenopathy Cardiovascular - RRR no m/r/g, no JVD Lungs: Clear to auscultation, No wheezing, use of accessory muscles, no crackles Skin - Skin warm and dry, no wounds or rashes Abdomen - Normal bowel sounds, abdomen soft and nontender Extremities - No edema, cyanosis or clubbing Musculoskeletal - 5/5 strength, normal range of motion, no swollen or erythematous joints. Neurological ? Alert and oriented x 3, CN 2-12 grossly intact. Psych: Normal mood and affect DS: Data Data Completed and Pending Labs on day of discharge: Labs from last 24 hours 04/27/25 04/26/25 09:01 13:53 WBC 5.8 7.1 RBC 3.78 L 3.85 L Hgb 11.6 L 11.7 L Hct 36.5 L 36.8 L MCV 96.6 95.6 MCH 30.7 30.4 MCHC 31.8 L 31.8 L RDW 13.2 13.1 Plt Count 234 241 MPV 9.9 9.9 Immature Gran % (Auto) 0.2 0.3 Neut % (Auto) 56.3 53.7 Lymph % (Auto) 30.0 32.2 [place] % (Auto) 7.5 9.8 H Eos % (Auto) 5.5 H 3.4 Baso % (Auto) 0.5 0.6 Lymph # (Auto) 1.75 2.29 [place] # (Auto) 0.4 0.7 H Eos # (Auto) 0.3 0.2 Baso # (Auto) 0.0 0.0 Abs Immat Gran (auto) 0.01 0.02 Absolute Neuts (auto) 3.3 3.8 Absolute Nucleated RBC 0.000 0.000 Nucleated RBC % 0.0 0.0 ESR 33 H Sodium 140 137 Potassium 3.2 L 3.6 Chloride 109 H 106 Carbon Dioxide 26 25 Anion Gap 5 6 BUN 3 L 7 Creatinine 0.61 L 0.64 L Estim Creat Clear Calc 71 68 Estimated GFR > 60 > 60 Glucose 106 76 Calcium 8.3 L 8.4 Phosphorus 2.5 Magnesium 2.0 Total Bilirubin 0.3 AST 22 ALT 12 Alkaline Phosphatase 53 C-Reactive Protein 2.6 H 3.4 H Total Protein 6.5 Albumin 3.4 L Discharge Plan Discharge Attending physician on discharge: Rafaela Baltazar Consulting providers: Syed Junior; Jacinto Gaitan Discharging Clinician: Rafaela Baltazar Anticipated Discharge Date/Time: 04/27/25 16:39 Patient Disposition: Home Activity: may shower Diet: regular Discharge Instructions: Follow up with your PCP in 1-2 weeks. Follow up with Dr. Junior for a colonoscopy in 4-6 weeks. The office number is [phone] Monitor for continued bloody stools. Should continue to resolve. Come back to the hospital for worsening symptoms. You should take azithromycin daily for 3 days starting tomorrow Patient Instructions: Antibiotic Form Patient Language: Surinamese Stand Alone Forms: General Discharge Information Follow-up/Referrals: Syed Junior MD [Physician, Gastroenterology] - 4 Weeks Discharge Medications: New azithromycin 500 mg tablet 500 mg PO DAILY 3 Days Qty: 3 0RF Continued fluticasone propionate [Flonase Allergy Relief] 50 mcg/actuation spray,suspension 1 spray intranasal DAILY Qty: 16 0RF Rx Instructions: administer into each nostril aspirin [Adult Aspirin Regimen] 81 mg tablet,delayed release (DR/EC) 81 mg PO DAILY atorvastatin 20 mg tablet 20 mg PO DAILY paroxetine HCl 10 mg tablet 10 mg PO DAILY albuterol sulfate [ProAir HFA] 90 mcg/actuation HFA aerosol inhaler 1 inhalation INHALATION Q4H PRN (Reason: Shortness Of Breath) Serevent Diskus 50 mcg/dose blister with device 1 inhalation INHALATION Q12H cholecalciferol (vitamin D3) 25 mcg (1,000 unit) capsule 25 mcg PO DAILY losartan 50 mg tablet 50 mg PO DAILY levothyroxine 75 mcg tablet 75 mcg PO DAILY hydrochlorothiazide 25 mg tablet 25 mg PO DAILY solifenacin 5 mg tablet 5 mg PO DAILY calcium carbonate [Calcium 600] 600 mg calcium (1,500 mg) Tablet 600 mg PO BID multivit with min-folic acid 0.4 mg Tablet 1 tablet PO DAILY pantoprazole 40 mg tablet,delayed release (DR/EC) 40 mg PO QAM Qty: 30 5RF Held Zepbound 5 mg/0.5 mL pen injector 5 mg SUBCUT WEEKLY Hold Instructions: Resume on 05/04/25. Hold until follow up with PCP Date of admission: 04/26/25 09:25 Primary Care Provider: ShruthiKehinde Admitting Provider: Diana Guardado Attending physician on admission: Rafaela Baltazar Condition: Stable Quality VTE Prophylaxis VTE prophylaxis: mechanical ordered Hospitalist MIPS Heart Failure (Exclusion) Patient has history of Heart Transplant or Left Ventricular Assistive Device?: No IF YES, STOP HERE Heart Failure (Qualifier) Patient has current or prior documentation of LVEF less than or equal to 40%, or mod/servere depressed LVSF?: No IF NO, STOP HERE
[2025-04-27] MEDS: cefTRIAXone 1 GM in SODIUM CHLORIDE 0.9% IV 50 ML 100 ML IVPB (16:54)
--- NOTE | 2025-04-27 17:44 | WPDGIPROGNO ---
Progress Note: A&P Assessment and Plan (1) Colitis: Code(s): K52.9 - Noninfective gastroenteritis and colitis, unspecified Status: Acute Assessment and Plan: much better and going home wonder if had ischemic component but not more rectal bleeding no fever plan is complete 3 more days of oral abx and will set up colonoscopy 6-8 weeks to assess resolution of colitis (2) GI bleed: Code(s): K92.2 - Gastrointestinal hemorrhage, unspecified Status: Acute (3) Rectal bleeding: Code(s): K62.5 - Hemorrhage of anus and rectum Status: Acute (4) LLQ pain: Code(s): R10.32 - Left lower quadrant pain Status: Acute Subjective Date/time seen: 04/27/25 13:44 Interval history: no more rectal bleeding, pain has improved and tolerated diet going home today Review of Systems Review of Systems: All systems reviewed & are unremarkable except as noted in HPI and below Exam Const: General: comfortable and no acute distress HENMT: Face/Nose/Sinus: Normal nares present Eyes: General: appearance normal, both eyes and all related structures Neck: Neck: no JVD Resp: Auscultation: clear to auscultation bilaterally Cardio: Rate: regular rate Rhythm: regular rhythm GI: Inspection: non-distended GI Palp: Yes Soft to palpation Skin: General skin exam: normal color Neuro: General: gait normal Speech: normal speech Extrem: General: normal to inspection Psych: Mental Status: mental status grossly normal Objective Data Vital Signs Vital Signs: Vital Signs - 24 hr 04/26/25 20:09 04/26/25 20:50 04/26/25 20:53 Temperature Pulse Rate 85 65 65 Respiratory Rate 18 16 16 Blood Pressure Pulse Oximetry 100 98 Oxygen Delivery Room Air Room Air Fraction of Inspired Oxygen 21 21 04/26/25 21:29 04/27/25 06:00 04/27/25 08:00 Temperature 98.1 F 98.0 F Pulse Rate 85 88 Respiratory Rate 18 16 Blood Pressure 156/81 H 138/75 Pulse Oximetry 100 99 Oxygen Delivery Room Air Fraction of Inspired Oxygen 04/27/25 08:35 Temperature Pulse Rate 88 Respiratory Rate 20 Blood Pressure Pulse Oximetry Oxygen Delivery Fraction of Inspired Oxygen Intake/Output Intake/Output: Intake & Output 04/24/25 04/25/25 04/26/25 04/27/25 23:59 23:59 23:59 23:59 Intake Total 50 3940 2780 Balance 50 3940 2780 Meds/Results Medications: Active Medications Generic Name Dose Route Start Last Admin Trade Name Freq PRN Reason Stop Dose Admin Acetaminophen 650 mg 04/25/25 19:44 04/27/25 05:52 Acetaminophen 325 Mg Tablet PO 650 mg Q4H PRN Administration Mild Pain (1-3) or Fever Albuterol 1 puff 04/26/25 00:56 Albuterol Sulfate (*Sp) Aerosol 1 Puff INHALATION Q4HRT PRN Shortness Of Breath Atorvastatin Calcium 20 mg 04/27/25 09:00 04/27/25 08:33 Atorvastatin 20 Mg Tablet PO 20 mg DAILY CLAUDIA Administration Famotidine 20 mg 04/25/25 20:20 04/27/25 08:35 Famotidine 20 Mg/2 Ml Vial IV PUSH 20 mg Q12HR CLAUDIA Administration Fluticasone Propionate 1 spray 04/26/25 09:00 04/27/25 08:34 Fluticasone Propionate 0.05% Na Spr 16 Gm Btl (*Bkc) NASAL Not Given DAILY CLAUDIA Metronidazole 500 mg in 100 mls @ 100 mls/hr 04/26/25 06:00 04/27/25 13:56 Flagyl 500 Mg/Iso Soln 100 Ml IVPB 100 mls/hr Q8HR CLAUDIA Administration Sodium Chloride 1,000 mls @ 125 mls/hr 04/25/25 19:45 04/27/25 13:00 Normal Saline Iv IV CONT 125 mls/hr .Q8H CLAUDIA Administration Ceftriaxone Sodium 1 gm/ 50 mls @ 100 mls/hr 04/27/25 17:00 04/27/25 16:54 Sodium Chloride IVPB 100 mls/hr Q24H CLAUDIA Administration Levothyroxine Sodium 75 mcg 04/27/25 06:30 04/27/25 05:32 Levothyroxine Sodium 75 Mcg Tablet PO 75 mcg DAILY@0630 CLAUDIA Administration Losartan Potassium 25 mg 04/27/25 09:00 04/27/25 08:33 Losartan Potassium 25 Mg Tablet PO 25 mg DAILY CLAUDIA Administration Ondansetron HCl 4 mg 04/25/25 19:44 Ondansetron Inj 4 Mg/2 Ml Vial IV PUSH Q4H PRN Nausea Pantoprazole Sodium 40 mg 04/27/25 09:00 04/27/25 08:33 Pantoprazole 40 Mg Tablet PO 40 mg QAM CLAUDIA Administration Paroxetine HCl 10 mg 04/26/25 16:10 04/27/25 08:33 Paroxetine 10 Mg Tablet PO 10 mg DAILY CLAUDIA Administration Salmeterol Xinafoate 1 puff 04/26/25 08:00 04/27/25 08:34 Salmeterol Xinafoate 50 Mcg Diskus INHALATION 1 puff Q12HRT CLAUDIA Administration Solifenacin 5 mg 04/26/25 16:10 04/27/25 08:33 Solifenacin 5 Mg Tablet PO 5 mg DAILY CLAUDIA Administration Radiology Results: ITS Impressions Abdomen/Pelvis CT 04/25/25 17:35 IMPRESSION: 1. Extensive mucosal thickening of the colon, most severe in the descending colon, consistent with colitis, most likely infectious or inflammatory. Labs Labs: Laboratory Results - last 24 hr 04/27/25 09:01 WBC 5.8 RBC 3.78 L Hgb 11.6 L Hct 36.5 L MCV 96.6 MCH 30.7 MCHC 31.8 L RDW 13.2 Plt Count 234 MPV 9.9 Immature Gran % (Auto) 0.2 Neut % (Auto) 56.3 Lymph % (Auto) 30.0 [place] % (Auto) 7.5 Eos % (Auto) 5.5 H Baso % (Auto) 0.5 Lymph # (Auto) 1.75 [place] # (Auto) 0.4 Eos # (Auto) 0.3 Baso # (Auto) 0.0 Abs Immat Gran (auto) 0.01 Absolute Neuts (auto) 3.3 Absolute Nucleated RBC 0.000 Nucleated RBC % 0.0 Sodium 140 Potassium 3.2 L Chloride 109 H Carbon Dioxide 26 Anion Gap 5 BUN 3 L Creatinine 0.61 L Estim Creat Clear Calc 71 Estimated GFR > 60 Glucose 106 Calcium 8.3 L Phosphorus 2.5 Magnesium 2.0 Total Bilirubin 0.3 AST 22 ALT 12 Alkaline Phosphatase 53 C-Reactive Protein 2.6 H Total Protein 6.5 Albumin 3.4 L
== END 2025-04-27 17:40 | disposition home or self-care (01) | DRG 392 ==
LOC: ANHED 19:07 → ANH3MEDSUR 20:30
PROVIDERS: Physician Assistant; Admitting Provider General Practice; Emergency Provider Emergency Medicine; PCP Internal Medicine; Visit Provider Nurse Practitioner Acute Care
DX: K52.9 Noninfective gastroenteritis and colitis, unspecified (principal); K62.5 Hemorrhage of anus and rectum; I10 Essential (primary) hypertension; E78.5 Hyperlipidemia, unspecified; J45.909 Unspecified asthma, uncomplicated; Z79.82 Long term (current) use of aspirin
CPT/HCPCS: 36415; 74177; 80048; 80053; 81001; 83605; 83735; 84100; 85014; 85018; 85025; 85610; 85652; 85730; 86140; 86850; 86900; 86901; 94640; 96365; 96375; 99285; A9270; G0378; J0696; J1836; J3480; J7030; Q9967

== ENCOUNTER 2025-06-06 01:12 | Day surgery (SDC) | payer MEDICARE, OTHER, SELFPAY ==
[2025-05-25 11:36] VITALS: BMI 31.2
[2025-06-06 12:41] VITALS: BP 167/92; PULSE 74; RESP 17; TEMP 36.7; O2SAT 100; BMI 31.1
[2025-06-06] MEDS: LACTATED RINGERS 1,000 ML 150 ML IV CONT (12:52)
--- NOTE | 2025-06-06 13:24 | WPDANESEPPF ---
Anes - Initial Pre Proc Eval Procedure: Operation Date: 06/06/25 13:30 Proposed Procedures p Diagnostic Colonoscopy - Syed Junior MD Date/Time: 06/06/25 13:24 Surgeon: Syed Junior MD Pre Op Diagnosis: Hemorrhage of anus and rectum Patient Data Age: 70 Gender: F Height: 1.6 m Weight: 79.9 kg Last Vital Signs Temp 36.7 C 06/06/25 12:41 Pulse 74 06/06/25 12:41 Resp 17 06/06/25 12:41 BP 167/92 H 06/06/25 12:41 Pulse Ox 100 06/06/25 12:41 O2 Del Method Room Air 06/06/25 12:41 Allergies Allergy/AdvReac Type Severity Reaction Status Date / Time No Known Allergies Allergy Verified 06/06/25 12:36 Home Medications ?Medication ?Instructions ?Recorded ?Confirmed ?Type albuterol sulfate 90 mcg/actuation 1 inhalation inhalation Q4H PRN 09/13/19 05/25/25 History aerosol inhaler (ProAir HFA) Shortness Of Breath aspirin 81 mg tablet,delayed 81 mg PO DAILY 09/13/19 06/06/25 History release (Adult Aspirin Regimen) atorvastatin 20 mg tablet 20 mg PO DAILY 09/13/19 06/06/25 History cholecalciferol (vitamin D3) 25 25 mcg PO DAILY 09/13/19 06/06/25 History mcg (1,000 unit) capsule paroxetine HCl 10 mg tablet 10 mg PO DAILY 09/13/19 06/06/25 History salmeterol 50 mcg/dose blister 1 inhalation inhalation Q12H 09/13/19 06/06/25 History powder for inhalation (Serevent Diskus) calcium carbonate (Calcium 600) 600 mg PO BID 05/13/23 06/06/25 History hydrochlorothiazide 25 mg tablet 25 mg PO DAILY 05/13/23 06/06/25 History levothyroxine 75 mcg tablet 75 mcg PO DAILY 05/13/23 06/06/25 History losartan 50 mg tablet 50 mg PO DAILY 05/13/23 06/06/25 History multivitamin with minerals-folic 1 tablet PO DAILY 05/13/23 06/06/25 History acid 0.4 mg tablet solifenacin 5 mg tablet 5 mg PO DAILY 05/13/23 06/06/25 History pantoprazole 40 mg tablet,delayed 40 mg PO QAM #30 tabs 05/23/23 06/06/25 Rx release fluticasone propionate 50 1 spray intranasal DAILY #16 grams 10/15/24 06/06/25 Rx mcg/actuation nasal spray,suspension (Flonase Allergy Relief) tirzepatide (weight loss) 5 mg/0.5 5 mg subcut WEEKLY 10/15/24 05/25/25 History mL subcutaneous pen injector (Zepbound) Held on 04/27/25. Instructions: Resume on 05/04/25. Hold until follow up with PCP azithromycin 500 mg tablet 500 mg PO DAILY 3 days #3 tabs 04/27/25 05/25/25 Rx Patient hx anesthesia problems: none Family hx anesthesia problems: none Results Review: All pre-operative results and documents have been reviewed as part of the pre-operative evaluation. [facility] Past Medical History Medical History LLQ pain Rectal bleeding Dyslipidemia Obesity Back pain Hypertension Asthma History of vaginal delivery x2 Surgical History Surgical History History of carpal tunnel surgery of right wrist History of total hysterectomy History of tubal ligation Family History Family History Father Hypertension Mother Hypertension Cerebrovascular accident Sibling Carcinoma of colon Social History Social History Smoking status: Never smoker Second hand tobacco smoke exposure: No Alcohol intake: never Substance use type: does not use Do You Feel Safe in your Home?: Yes Lack of Transportation: No Lack of Food: Never True Current Housing: I Have Housing Concerned About Future Housing: No Difficulty Paying Gas/Electric Bills: No Difficulty Paying for Meds: No Currently Unemployed: No Education: Master's Degree or Higher Difficulty w/ Childcare or Family Care: No Living arrangements: with friend(s) Spiritual care concerns: No Anes - Eval Final PreProcedure Day of Procedure 06/06/25 13:24 Patient weight: obese Heart: regular rate and rhythm Lungs: clear to auscultation Airway: Mallampati scale class II Neurological: alert and oriented Last oral intake: >/= 8 hours ASA classification: III Emergent: no Anesthetic plan: proceed Anesthesia type and monitoring: general GIVS and standard monitoring Results Review: All pre-operative results and documents have been reviewed as part of the pre-operative evaluation. Informed Consent: The patient's anesthetic plan and its attendant risks and benefits were discussed with the patient/family/POA. Questions were solicited and answers provided to the satisfaction of the patient/family/POA.
--- NOTE | 2025-06-06 13:44 | PM.HPGS ---
History of Present Illness History of Present Illness Consent: Risks, benefits, and alternatives have been discussed and questions answered. Patient agrees to proceed with procedure. Chief complaint: Hemorrhage of anus and rectum Narrative: Emma Leggett is a 70 year old female admitted with colitis 04/2025, now back to baseline and here for colonoscopy. Review of Systems Review of Systems: All systems reviewed & are unremarkable except as noted in HPI and below PMFSH Past Medical History Medical History (Updated 06/06/25 @ 13:45 by Syed Junior MD) History of colitis LLQ pain Rectal bleeding Dyslipidemia Obesity Back pain Hypertension Asthma History of vaginal delivery x2 Surgical History Surgical History History of carpal tunnel surgery of right wrist History of total hysterectomy History of tubal ligation Family History Family History Father Hypertension Mother Hypertension Cerebrovascular accident Sibling Carcinoma of colon Social History Social History Smoking status: Never smoker Second hand tobacco smoke exposure: No Alcohol intake: never Substance use type: does not use Do You Feel Safe in your Home?: Yes Lack of Transportation: No Lack of Food: Never True Current Housing: I Have Housing Concerned About Future Housing: No Difficulty Paying Gas/Electric Bills: No Difficulty Paying for Meds: No Currently Unemployed: No Education: Master's Degree or Higher Difficulty w/ Childcare or Family Care: No Living arrangements: with friend(s) Spiritual care concerns: No Meds Home Medications and Allergies Home Medications ?Medication ?Instructions ?Recorded ?Confirmed ?Type albuterol sulfate 90 mcg/actuation 1 inhalation inhalation Q4H PRN 09/13/19 05/25/25 History aerosol inhaler (ProAir HFA) Shortness Of Breath aspirin 81 mg tablet,delayed 81 mg PO DAILY 09/13/19 06/06/25 History release (Adult Aspirin Regimen) atorvastatin 20 mg tablet 20 mg PO DAILY 09/13/19 06/06/25 History cholecalciferol (vitamin D3) 25 25 mcg PO DAILY 09/13/19 06/06/25 History mcg (1,000 unit) capsule paroxetine HCl 10 mg tablet 10 mg PO DAILY 09/13/19 06/06/25 History salmeterol 50 mcg/dose blister 1 inhalation inhalation Q12H 09/13/19 06/06/25 History powder for inhalation (Serevent Diskus) calcium carbonate (Calcium 600) 600 mg PO BID 05/13/23 06/06/25 History hydrochlorothiazide 25 mg tablet 25 mg PO DAILY 05/13/23 06/06/25 History levothyroxine 75 mcg tablet 75 mcg PO DAILY 05/13/23 06/06/25 History losartan 50 mg tablet 50 mg PO DAILY 05/13/23 06/06/25 History multivitamin with minerals-folic 1 tablet PO DAILY 05/13/23 06/06/25 History acid 0.4 mg tablet solifenacin 5 mg tablet 5 mg PO DAILY 05/13/23 06/06/25 History pantoprazole 40 mg tablet,delayed 40 mg PO QAM #30 tabs 05/23/23 06/06/25 Rx release fluticasone propionate 50 1 spray intranasal DAILY #16 grams 10/15/24 06/06/25 Rx mcg/actuation nasal spray,suspension (Flonase Allergy Relief) tirzepatide (weight loss) 5 mg/0.5 5 mg subcut WEEKLY 10/15/24 05/25/25 History mL subcutaneous pen injector (Zepbound) Held on 04/27/25. Instructions: Resume on 05/04/25. Hold until follow up with PCP azithromycin 500 mg tablet 500 mg PO DAILY 3 days #3 tabs 04/27/25 05/25/25 Rx Allergies Allergy/AdvReac Type Severity Reaction Status Date / Time No Known Allergies Allergy Verified 06/06/25 12:36 Vital Signs Vital Signs - 24 hr 06/06/25 12:41 Temperature 98.0 F Pulse Rate 74 Respiratory Rate 17 Blood Pressure 167/92 H Pulse Oximetry 100 Oxygen Delivery Room Air Exam Const: General: comfortable and no acute distress HENMT: Face/Nose/Sinus: Normal nares present Eyes: General: appearance normal, both eyes and all related structures Resp: Auscultation: clear to auscultation bilaterally Cardio: Rate: regular rate Rhythm: regular rhythm GI: Inspection: non-distended GI Palp: Yes Soft to palpation Skin: General skin exam: normal color Extrem: General: normal to inspection Psych: Mental Status: mental status grossly normal Assessment and Plan Assessment and plan (1) History of colitis: Code(s): Z87.19 - Personal history of other diseases of the digestive system Status: Acute Assessment and Plan: colonoscopy
--- NOTE | 2025-06-06 14:00 | S_PTH ---
PATIENT: Emma Leggett LOC: [facility]#:[id number] AGE/SX: 70/F ROOM: RE06/06/[address]: Syed Junior MD : 1955 BED: DIS: 06/06/2025 SPEC #: [id number] RECD: 06/07/25 07:21 STATUS: ROGE RERavin #: [id number] MINGO: 06/06/25 14:[address]: Syed Junior DEPT: [facility] Surgical RECD BY: Berta Russell ENTERED: 06/07/25 07:21 SP TYPE: Surgical OTHR DR: Kehinde HawkinsMD Tissues: A - Colon Polypectomy Procedures: Hematoxylin and Eosin Stain Gross and Microscopic Level 4
[2025-06-06 14:05] VITALS: BP 143/69; PULSE 85; RESP 19; O2SAT 100
[2025-06-06 14:15] VITALS: BP 147/80; PULSE 75; RESP 14; O2SAT 100
[2025-06-06 14:25] VITALS: BP 159/88; PULSE 76; RESP 13; O2SAT 100
== END 2025-06-06 14:33 | disposition home or self-care (01) ==
PROVIDERS: PCP Internal Medicine; Referring Provider Internal Medicine Gastroenterology; Visit Provider Internal Medicine Gastroenterology
PROC: 0DJD8ZZ Inspection of Lower Intestinal Tract, Via Natural or Artificial Opening Endoscopic (ICD-10-PCS; CPT 45378; principal; 2025-06-06 13:30)
DX: Z09 Encounter for follow-up examination after completed treatment for conditions other than malignant neoplasm (principal); D12.2 Benign neoplasm of ascending colon; K62.89 Other specified diseases of anus and rectum; K64.8 Other hemorrhoids; E78.5 Hyperlipidemia, unspecified; I10 Essential (primary) hypertension; J45.909 Unspecified asthma, uncomplicated; E66.9 Obesity, unspecified; Z68.31 Body mass index [BMI] 31.0-31.9, adult; Z79.51 Long term (current) use of inhaled steroids; Z79.82 Long term (current) use of aspirin; Z79.85 Long-term (current) use of injectable non-insulin antidiabetic drugs; Z98.890 Other specified postprocedural states; Z98.51 Tubal ligation status; Z87.19 Personal history of other diseases of the digestive system; Z80.0 Family history of malignant neoplasm of digestive organs
CPT/HCPCS: 45380; 88305; J2003; J2704; J7120